=== PATIENT | female | born 1950 | race Caucasian/White ===

== ENCOUNTER 2020-08-26 07:55 | Outpatient (CLI) | payer MEDICARE, SELFPAY ==
--- NOTE | ~2020-08-26 | MM_ITS ---
EXAMINATION: MM screening [facility] BI w chang HISTORY: Screening mammogram TECHNIQUE: Craniocaudal and mediolateral oblique 3-D tomosynthesis images were obtained and synthetic 2-D images were generated. CAD analysis was submitted and interpreted. COMPARISON: 02/08/2019, 02/06/2018, 12/05/2016 BREAST PARENCHYMAL COMPOSITION: There are scattered areas of fibroglandular density. FINDINGS: RIGHT BREAST: An asymmetry is present in the middle third of the outer breast 8 cm from the nipple on the craniocaudal view. LEFT BREAST: There is no evidence of suspicious mass, calcification, or architectural distortion to s uggest malignancy. There has been no significant interval change. IMPRESSION: 1. Right breast asymmetry on the craniocaudal view. 2. Additional mammographic views and possible breast ultrasound are recommended. BI-RADS Category 0: Incomplete: Needs additional imaging evaluation. Reviewed, dictated and finalized at location A. IMPRESSION: 1. Right breast asymmetry on the craniocaudal view. 2. Additional mammographic views and possible breast ultrasound are recommended . BI-RADS Category 0: Incomplete: Needs additional imaging evaluation.
--- NOTE | ~2020-08-26 | DEXA_ITS ---
Bone Density Report Name: Annette Mckeon Age: 69 Sex: Female Ethnicity: White Date of : 1950 Indication: postmenopausal; height loss; prior fracture; hysterectomy; Referring Provider: CAROL, ELLYN Pedraza Study: Bone densitometry was performed. Exam Date: August 26, 2020 Accession number: [id number] Bone Density: Region BMD T-score Z-score Classification AP Spine (L1-L4) 0.906 -1.3 0.8 Osteopenia Femoral Neck (Left) 0.722 -1.1 0.6 Osteopenia Total Hip (Left) 0.838 -0.9 0.6 Normal Total Hip Bilateral Avg 0.832 -0.9 0.6 Normal Femoral Neck (Right) 0.690 -1.4 0.3 Osteopenia Total Hip (Right) 0.825 -1.0 0.5 Normal World Health Organization criteria for BMD impression classify patients as: Normal (T-score at or above -1.0), Osteopenia (T-score between -1.0 and -2.5), or Osteoporosis (T-score at or below -2.5). 10-year Fracture Risk(1): Major Osteoporotic Fracture 16% Hip Fracture 2.0% Reported Risk Factors: [place] (), Neck BMD=0.690, BMI=25.4, previous fracture (1) FRAX(R) Version 3.08. Fracture probability calculated for an untreated patient. Fracture probability may be lower if the patient has received treatment. Previous Exams: Region Exam Age BMD T-score BMD Change BMD Change Date g/cm2 vs Baseline vs Previous AP Spine(L1-L4) 08/26/2020 69 0.906 -1.3 -0.016(-1.7%)# -0.090(-9.0%)# 11/18/2011 60 0.996 -0.5 0.074(8.0%)# 0.123(14.1%)# 01/19/2009 58 0.873 -1.6 -0.049(-5.3%)* -0.086(-8.9%)* 12/03/2005 54 0.959 -0.8 0.037(4.0%)* 0.037(4.0%)* 10/11/2003 52 0.922 -1.1 Total Hip(Left) 08/26/2020 69 0.838 -0.9 -0.101(-10.8%) -0.090(-9.7%)* 05/13/2016 65 0.928 -0.1 -0.011(-1.2%)# -0.038(-3.9%)# 11/18/2011 60 0.966 0.2 0.027(2.8%)# 0.044(4.7%)# 01/19/2009 58 0.922 -0.2 -0.017(-1.8%) -0.035(-3.7%)* 12/03/2005 54 0.957 0.1 0.018(1.9%) 0.018(1.9%) 10/11/2003 52 0.939 0.0 Total Hip(Right) 08/26/2020 69 0.825 -1.0 -0.076(-8.4%)# -0.099(-10.7%) 05/13/2016 65 0.924 -0.1 0.023(2.6%)# -0.043(-4.5%)# 11/18/2011 60 0.967 0.2 0.067(7.4%)# 0.092(10.5%)# 01/19/2009 58 0.876 -0.5 -0.025(-2.8%) -0.029(-3.2%)* 12/03/2005 54 0.904 -0.3 0.003(0.4%) 0.003(0.4%) 10/11/2003 52 0.901 -0.3 *Denotes significance at 95% confidence level, LSC for AP Spine = 0.022 g/cm2, LSC for Total Hip = 0.027 g/cm2 Clinical Information Provided by Patient: Has had a low trauma fract
== END 2020-08-26 07:56 | disposition home or self-care (01) ==
LOC: ANHIMG 08:06
PROVIDERS: PCP Internal Medicine; Visit Provider Internal Medicine
DX: Z12.31 Encounter for screening mammogram for malignant neoplasm of breast (principal); M81.0 Age-related osteoporosis without current pathological fracture; R92.8 Other abnormal and inconclusive findings on diagnostic imaging of breast
CPT/HCPCS: 77063; 77067; 77080

== ENCOUNTER 2020-09-01 14:18 | Outpatient (CLI) | payer MEDICARE, SELFPAY ==
--- NOTE | ~2020-09-01 | MM_ITS ---
EXAMINATION: MM diagnostic mammo unilat RT HISTORY: Focal right breast asymmetry on screening CC view of 08/26/2020 mammogram TECHNIQUE: Additional 3-D tomosynthesis images of the right breast were performed and synthetic 2-D i mages were generated. CAD analysis was submitted and interpreted. COMPARISON: , 02/24/2019bilateral digital screening mammogram examinations FINDINGS: The focal area of asymmetry is no longer present on coned compression CC view of the area. There is no significant abnormality on ML view either. IMPRESSION: 1. No mammographic evidence of malignancy 2. Routine mammographic screening is recommended BI-RADS Category 1: Negative Reviewed, dictated and finalized at location A.
== END 2020-09-01 14:19 | disposition home or self-care (01) ==
PROVIDERS: PCP Internal Medicine; Visit Provider Internal Medicine
DX: R92.8 Other abnormal and inconclusive findings on diagnostic imaging of breast (principal)
CPT/HCPCS: 77065

== ENCOUNTER 2020-11-23 02:27 | Day surgery (SDC) | payer MEDICARE, SELFPAY ==
[2020-11-06 13:11] VITALS: BMI 24.9
[2020-11-23 08:57] VITALS: BP 150/52; PULSE 75; RESP 18; TEMP 36.3; O2SAT 100
[2020-11-23] MEDS: LACTATED RINGERS 1,000 ML 150 ML IV CONT (09:06)
--- NOTE | 2020-11-23 09:33 | WPDANESEPPF ---
Anes - Initial Pre Proc Eval Procedure: Operation Date: 11/23/20 09:30 Proposed Procedures p Colonoscopy - Pedro Cunningham MD Date/Time: 11/23/20 09:33 Surgeon: Pedro Cunningham MD Pre Op Diagnosis: Diverticulitis Patient Data Age: 69 Gender: F Height: 1.63 m Weight: 65 kg Last Vital Signs Temp 97.4 F L 11/23/20 08:57 Pulse 75 11/23/20 08:57 Resp 18 11/23/20 08:57 BP 150/52 H 11/23/20 08:57 Pulse Ox 100 11/23/20 08:57 Allergies Allergy/AdvReac Type Severity Reaction Status Date / Time adhesive Allergy Unknown RASH Unverified 08/10/17 10:31 doxycycline Allergy Unknown Cramping Verified 11/23/20 09:05 of the Muscles Home Medications Medication Instructions Recorded Confirmed Type pravastatin 40 mg tablet 40 mg PO DAILY 11/03/20 11/06/20 History Patient hx anesthesia problems: none Family hx anesthesia problems: none [facility] Past Medical History Medical History (Updated 11/23/20 @ 09:38 by Pedro Cunningham MD) Hyperlipidemia Family History Family History Mother Family history of chronic obstructive pulmonary disease Family history of malignant neoplasm of urinary bladder Patient's mother is Social History Social History Smoking status: Never smoker Alcohol intake: former Substance use: never Substance use type: does not use Living arrangements: with family Gender identity (if verbalized by the patient): Female Spiritual care concerns: No Anes - Eval Final PreProcedure Day of Procedure 11/23/20 09:33 Patient weight: normal Heart: regular rate and rhythm Lungs: clear to auscultation Airway: Mallampati scale class II Neurological: alert and oriented Last oral intake: >/= 8 hours ASA classification: II Emergent: no Anesthetic plan: proceed Anesthesia type and monitoring: general GIVS and standard monitoring Informed Consent: The patient's anesthetic plan and its attendant risks and benefits were discussed with the patient/family/POA. Questions were solicited and answers provided to the satisfaction of the patient/family/POA.
--- NOTE | 2020-11-23 09:36 | PM.HPGS ---
History of Present Illness History of Present Illness Consent: Risks, benefits, and alternatives have been discussed and questions answered. Patient agrees to proceed with procedure. Chief complaint: Diverticulitis Narrative: Annette Mckeon is a 69 year old female with recent symptoms suggestive of diverticulitis. She was also having urinary tract symptoms, passing small particles and also what seemed to be air with her urine. A CT scan of the abdomen showed a possible sigmoid colon mass, but not any free air suggesting severe diverticulitis. Nor was there a fistula seen. She took an antibiotic, nitrofurantoin for a week and the pain she had originally had in the pelvis subsided. Review of Systems Review of Systems: All systems reviewed & are unremarkable except as noted in HPI and below PMFSH Past Medical History Medical History Hyperlipidemia Family History Family History Mother Family history of chronic obstructive pulmonary disease Family history of malignant neoplasm of urinary bladder Patient's mother is Social History Social History Smoking status: Never smoker Alcohol intake: former Substance use: never Substance use type: does not use Living arrangements: with family Gender identity (if verbalized by the patient): Female Spiritual care concerns: No Meds Home Medications and Allergies Home Medications Medication Instructions Recorded Confirmed Type pravastatin 40 mg tablet 40 mg PO DAILY 11/03/20 11/06/20 History Allergies Allergy/AdvReac Type Severity Reaction Status Date / Time adhesive Allergy Unknown RASH Unverified 08/10/17 10:31 doxycycline Allergy Unknown Cramping Verified 11/23/20 09:05 of the Muscles Vital Signs Vital Signs - 24 hr 11/23/20 08:57 Temperature 36.3 C L Pulse Rate 75 Respiratory Rate 18 Blood Pressure 150/52 H Pulse Oximetry 100 Exam Resp: Auscultation: clear to auscultation bilaterally Cardio: Rate: regular rate Rhythm: regular rhythm GI: GI Palp: Yes Soft to palpation and No Tenderness to palpation present (GI) Assessment and Plan Assessment and plan (1) Abnormal CT scan, gastrointestinal tract: Code(s): R93.3 - Abnormal findings on diagnostic imaging of other parts of digestive tract Status: Acute Assessment and Plan: Colonoscopy with possible biopsy or polypectomy or cautery or injection of substances.
[2020-11-23 10:10] VITALS: BP 96/40; PULSE 78; RESP 22; O2SAT 100
[2020-11-23 10:20] VITALS: BP 109/62; PULSE 74; RESP 23; O2SAT 100
[2020-11-23 10:30] VITALS: BP 150/75; PULSE 71; RESP 19; O2SAT 100
== END 2020-11-23 10:43 | disposition home or self-care (01) ==
PROVIDERS: PCP Internal Medicine; Visit Provider Internal Medicine Gastroenterology
PROC: 0DJD8ZZ Inspection of Lower Intestinal Tract, Via Natural or Artificial Opening Endoscopic (ICD-10-PCS; CPT 45378; principal; 2020-11-23 09:30)
DX: R93.3 Abnormal findings on diagnostic imaging of other parts of digestive tract (principal); K57.30 Diverticulosis of large intestine without perforation or abscess without bleeding; E78.5 Hyperlipidemia, unspecified
CPT/HCPCS: 45378; J2704; J7120

== ENCOUNTER 2021-10-18 08:30 | Outpatient (RCR) | payer MEDICARE, SELFPAY ==
--- NOTE | 2021-09-20 12:22 | PTOPEVAL ---
PHYSICAL THERAPY EVALUATION AND PLAN OF CARE Thank you for referring Annette Mckeon to [facility].? The patient is scheduled to be seen for therapy? 2x/week for 4 weeks. Please review, sign, date and return this plan of care KRYSTLE. I agree with and certify that the following plan of care is medically necessary. Referring Physician Date Attending Provider: Bunny Aguirre, MD Diagnosis left lumbar radiculopathy Onset 06/29 Subjective Information Annette is here today with c/o Query Text:As Reported By Patient/ left sided sciatica . She Family points to the left glutes and leg. Started about June with shoveling snow and then about a month ago she started to do yard work and it hit hard. MRI does not herniated disc at L4-5 impinging on L5 nerve root. She points to pain in the left leg that goes down to the ankle and lateral ankle. She took a z-pack of steroids - she is not sure they made a difference. Lumbar ROM Lumbar Flexion Active Ankle Query Text:Hands to: Lumbar Comments stands in forward flexed position of at least 20deg; increased LE symptoms with neutral and extended positions Lower Extremity Muscle Strength Testing General Lower Extremity Strength Gross Lower Extremity Strength generally WFL; right MMT increases symptoms on the left and causes pain to the point of limited engaged muscles Posture Posture Standing Position Thoracic Spine Posture Increased Kyphosis Lumbar Spine Posture Flexed Pelvis Posture Posterior Tilted Leg Length Discrepancy left LE short compared to right indicating potential for left posterior innominate which is also supported with the fact the a crossed straight leg raise test is positive but a straight leg raise test on left is negative Additional Posture Comments in sitting: attempted to perform anterior to posterior pelvic tilts which is very difficult to perform with hypomobility of lumbar spine
--- NOTE | 2021-10-18 09:08 | PTOPEVAL ---
PHYSICAL THERAPY DISCHARGE NOTE Thank you for referring Annette Mckeon to [facility].? Please review, sign, date and return this plan of care KRYSTLE. I agree with and certify that the following plan of care is medically necessary. Referring Physician Date Attending Provider: Bunny Aguirre, MD Diagnosis left lumbar radiculopathy Onset 06/29 Subjective Information States that she feels like Query Text:As Reported By Patient/ there has been some help from Family physical therapy in sense of learning how to improve her posture and gait pattern. She does feel like her pain symptoms are somewhat better. Notes that she will often feel better for at least a day after therapy sessions. She will get tired and pain will return but she is encouraged. Still sleeps in recliner. States that she does her HEP and she feels like they are helpful. Her primary care doctor is sending her to a neurosurgeon. Lumbar ROM Lumbar Flexion Active Ankle Query Text:Hands to: Lumbar Comments stands in forward flexed position of at least 20deg; increased LE symptoms with neutral and extended positions Lower Extremity Muscle Strength Testing General Lower Extremity Strength Gross Lower Extremity Strength generally WFL; all MMT is aggravating to the symptoms but generally less sensitive compared to initial visit Special Test-Spine Lumbar Spine Special Tests Crossed Straight Leg Raise Test Negative Left,Positive Right Straight Leg Raise Test Negative Right,Negative Left Gait Pattern Antalgic Gait Other Gait Observations ambulates with a straight cane and states that it helps to decrease pressure on the left side of her body; right side bend of lumbar spine; performs step through gait with cane PT Clinical Summary Annette is a 70 yo female presenting to outpatient physical therapy with subacute left LE radiculopathy. She is diagnosed via MRI with spinal
== END 2021-10-18 14:08 | disposition home or self-care (01) ==
LOC: ANHPT 08:30
PROVIDERS: PCP Internal Medicine; Visit Provider Internal Medicine
DX: M54.16 Radiculopathy, lumbar region (principal)
CPT/HCPCS: 97014; 97110; 97112; 97140; 97162; G0283

== ENCOUNTER 2021-12-24 09:28 | Outpatient (CLI) | payer MEDICARE, SELFPAY ==
--- NOTE | ~2021-12-24 | MM_ITS ---
EXAMINATION: MM screening [facility] BI w chang HISTORY: Screening mammogram TECHNIQUE: Craniocaudal and mediolateral oblique 3-D tomosynthesis images were obtained and synthetic 2-D images were generated. CAD analysis was submitted and interpreted. COMPARISON: 09/01/20 diagnostic right mammogram /, 02/2019 bilateral screening mammogram examinations BREAST PARENCHYMAL COMPOSITION: There are scattered areas of fibroglandular density. FINDINGS: There is no evidence of suspicious mass, calcification, or architectural distortion to sugg est malignancy in either breast. There has been no suspicious interval change. IMPRESSION: 1. No mammographic evidence of malignancy. 2. Recommend routine screening mammography in one year. BI-RADS Category 1: Negative Reviewed, dictated and finalized at location A.
== END 2021-12-24 09:29 | disposition home or self-care (01) ==
LOC: ANHIMG 09:32
PROVIDERS: PCP Internal Medicine; Visit Provider Internal Medicine
DX: Z12.31 Encounter for screening mammogram for malignant neoplasm of breast (principal)
CPT/HCPCS: 77063; 77067

== ENCOUNTER 2022-04-10 21:06 | Inpatient (IN) | payer MEDICARE, SELFPAY ==
--- NOTE | ~2022-04-10 | XR_ITS ---
EXAMINATION: XR abdomen/kub 1V DATE: 04/12/2022 06:59 INDICATION: Small bowel obstruction TECHNIQUE: A supine view of the abdomen on 2 radiographs was obtained. COMPARISON: 04/11/2022 FINDINGS: Is a gastric tube tip in proximal side port in the body of the stomach. No significant change in mult iple dilated gas-filled loops of small bowel throughout the abdomen and pelvis consistent with persis tent small bowel obstruction. On flexion and cholecystectomy clips in right upper quadrant. Lung base s are clear. Heart size is normal. IMPRESSION: 1. Persistent small bowel obstruction. Reviewed, dictated and finalized at location A. BACKER
--- NOTE | ~2022-04-10 | XR_ITS ---
XR abdomen NG/feed tube insert INDICATION: Evaluate position. TECHNIQUE: Limited KUB perform for evaluating NG tube . COMPARISON: FINDINGS: NG tube tip in the stomach. Visualized bowel gas pattern is unremarkable.There is a hiatal hernia. There are cholecystectomy clips. IMPRESSION: 1: NG tube tip in the stomach. Reviewed, dictated and finalized at location A. [employer] WORKERS
--- NOTE | ~2022-04-10 | XR_ITS ---
SMALL BOWEL SERIES ONLY INDICATION: Small bowel obstruction. Prior sigmoidectomy. TECHNIQUE: Serial plain films and fluoroscopic spot films are performed following NG tube administrat ion of water-soluble contrast. COMPARISON: 04/12/2022 FINDINGS: Contrast is followed through the small bowel to 1 hour. The bowel is diffusely dilated with out definite transition point. Findings discussed with Dr. Wick. The study was ended per Dr. Wick. IMPRESSION: 1: Dilated small bowel, consistent with obstruction. Reviewed, dictated and finalized at location A. T CENTER DIRECTOR
--- NOTE | ~2022-04-10 | XR_ITS ---
EXAMINATION: XR abdomen NG/feed tube insert DATE: 04/11/2022 10:14 INDICATION: Nasogastric tube placement TECHNIQUE: A supine view of the abdomen and lower chest was obtained for evaluation of feeding tube placement. COMPARISON: 04/11/2022 at 12:54 AM FINDINGS: Nasogastric tube tip in proximal side port in the body the stomach. Cholecystectomy clips in right up per quadrant. Multiple mildly dilated loops of gas-filled small bowel consistent with small bowel obs truction. Lung bases are clear. Heart size is normal. IMPRESSION: 1. Nasogastric tube in stomach. 2. Small bowel obstruction. Reviewed, dictated and finalized at location A. PER OPERATOR
--- NOTE | ~2022-04-10 | XR_ITS ---
XR chest PICC line DATE: 04/14/2022 10:04 INDICATION: PICC line verification TECHNIQUE: Portable AP view on 04/14/2022 at 0951 hours COMPARISON: None FINDINGS: Right upper extremity PIC catheter tip overlies the superior vena cava. NG tube in the stomach. Mild elevation of left diaphragm. Heart size is likely within normal range. Mild pulmonary vascular and interstitial prominence is mild congestive change. No pulmonary consolidation or pneumothorax. Aortic calcification and unfolding. Osteopenia. IMPRESSION: Right upper extremity PIC catheter in superior vena cava NG tube in stomach Reviewed, dictated and finalized at Location A. Reviewed, dictated and finalized at location B. LIFE ECOLOGY PROFESSOR
--- NOTE | ~2022-04-10 | CT_ITS ---
EXAMINATION: CT abdomen pelvis w con DATE: 04/10/2022 22:38 INDICATION: Abdominal pain, nausea and vomiting. History of bowel resection. TECHNIQUE: Computed tomography (CT) of the abdomen and pelvis was performed with 100 CC Omnipaque 350 intravenous contrast. Automated exposure control and iterative reconstruction technique were employe d. Exam dose: 546.00 mGy-cm total exam DLP. COMPARISON: None. FINDINGS: The lung bases are clear. Surgical change is noted in the esophagogastric area, likely rela patricio to fundoplication. There is dilatation and there are air-fluid levels of most of the small bowel, measuring up to 3.6 cm diameter, with transition points noted slightly left of midline in the lower abdomen (series 3 image 89) and left lower quadrant/pelvic area (image 118). There is edema of the mesentery, particularly o n the left and mild free fluid in the abdomen. The very distal small bowel is decompressed. Findings are consistent with closed loop small bowel obstruction. There is a suture line at the distal sigmoid colon. Heart size is within normal range. No pericardial or pleural effusion. Hepatic steatosis. No hepatic space-occupying mass lesion is evident. Status post cholecystectomy. No bile duct or pancreatic duct dilatation. No pancreatic mass lesion or calcification is evident. Norm al splenic size. Normal morphology of the adrenal glands. No renal mass lesion or urinary tract calculus or hydroureteronephrosis is evident. The urinary bladd er is unremarkable. The uterus is surgically absent. There is atherosclerotic calcification but normal caliber of the abdominal aorta. No intraperitoneal or retroperitoneal or pelvic mass lesion or adenopathy or ascites. Bilateral fat-containing inguinal hernias. No suspicious osteolytic or osteoblastic lesions are noted. Moderately prominent multilevel degenerative disease of the lumbar spine. Degenerative spurring of th e lower thoracic spine. Bilateral hip osteoarthritis. No suspicious osteolytic or osteoblastic lesion s are noted. IMPRESSION: Closed loop small bowel obstruction, with mild free fluid in the abdomen, mesenteric mariangel ma. Emergency surgical consultation is recommended . Reviewed, dictated and finalized at Location A. Reviewed, dictated and finalized at location B. OYMENT TECHNICIAN IMPRESSION: Closed loop small bowel obstruction, with mild free fluid in the a bdomen, mesenteric edema. Emergency surgical consultation is recommended .
[2022-04-10 21:07] VITALS: BP 178/79; PULSE 85; RESP 18; TEMP 36.4; O2SAT 100
[2022-04-10 21:20] VITALS: BP 167/84; PULSE 75; RESP 15; O2SAT 100
[2022-04-10 21:32] VITALS: BP 171/53; PULSE 75; RESP 12; O2SAT 100
[2022-04-10 21:50] LABS: Basophils Percent Auto 0.2 % (0.2-1.2); Eosinophils Percent Auto 0.1 % (0-4.4); Hematocrit 41.1 % (37.0-47.0); Immature Granulocyte Absolute 0.05 K/mm3 (0.00-0.031); Immature Granulocyte Percent A 0.4 % (0-0.5); Lymphocytes Absolute Auto 0.99 K/mm3 (0.9-3.2); Lymphocytes Percent Auto 7.2 % (18.3-44.2); Mean Corpuscular HGB Conc 34.1 g/dl (32-36); Mean Corpuscular Hemoglobin 30.3 pg (26-34); Mean Platelet Volume 10.2 fl (7.4-10.4); Monocytes Absolute Auto 0.3 K/mm3 (0.1-0.6); Monocytes Percent Auto 2.3 % (2.6-8.5); Neutrophils Absolute Auto 12.3 K/mm3 (1.3-6.7); Neutrophils Percent Auto 89.8 % (45.5-73.1); Platelet Count Result 200 k/mm3 (150-375); Red Blood Count 4.62 M/mm3 (4.2-5.4); Red Cell Distribution Width 12.9 % (11.5-14.5); White Blood Count 13.7 K/mm3 (4.5-10.0)
[2022-04-10] MEDS: SODIUM CHLORIDE 0.9% IV 1,000 ML 999 ML IV CONT (21:51)
[2022-04-10] MEDS: HYDROmorphone HCL INJ (*CRX) 1 MG/ML SYR IV PUSH (21:51)
--- NOTE | 2022-04-10 21:51 | ED.GENADULT ---
HPI - General Adult General Chief complaint: Abdominal Pain Stated complaint: abdominal pain Time Seen by Provider: 04/10/22 21:26 History of Present Illness HPI narrative: Patient is 71-year-old female who presents the emergency department with chief complaint of abdominal pain. Patient reports that she has prior history of bowel resection secondary to deal with a hernia in the upper abdomen patient reports that this afternoon she started having pain in the epigastric region and throughout her abdomen and reports that she has had nausea and vomiting. The patient reports symptoms have not been improved by anything and reports that there worsens whenever she tries to eat or drink anything. Patient denies fever denies recent surgery. Related Data Home Medications Medication Instructions Recorded Confirmed atorvastatin 10 mg tablet mg 04/10/22 losartan 100 mg tablet mg 04/10/22 Allergies Allergy/AdvReac Type Severity Reaction Status Date / Time adhesive Allergy Unknown RASH Verified 04/10/22 21:11 doxycycline Allergy Unknown Cramping Verified 04/10/22 21:11 of the Muscles Review of Systems Review of Systems: A 10 system review of systems was completed on the patient and is negative except for what is stated in the HPI. Nursing and ancillary documentation was reviewed. [facility] Past Medical History Medical History Hyperlipidemia Family History Family History Mother Family history of chronic obstructive pulmonary disease Family history of malignant neoplasm of urinary bladder Patient's mother is Social History Social History Smoking status: Never smoker Alcohol intake: former Substance use: never Substance use type: does not use Gender identity (if verbalized by the patient): Female Spiritual care concerns: No Exam Narrative: GENERAL: Well-appearing, well-nourished, and in no acute distress. HEAD: Normocephalic, atraumatic. EYES: PERRLA and EOMI. ENT: Nares clear, no rhinorrhea or epistaxis. Mucous membranes moist. NECK: Supple. CHEST: Clear to auscultation. No respiratory distress. HEART: Regular rate and rhythm. No murmur heard. Normal peripheral pulses. ABDOMEN: Soft, tenderness to palpation in the epigastric region, nondistended, normal active bowel sounds. EXTREMITIES: Normal range of motion. No edema. SKIN: Warm, dry, no rash. NEURO: No focal deficits. Alert and oriented x3. PSYCH: Normal mood and affect. Course Vital Signs Vital signs: Vital Signs Temperature 36.4 C L 04/10/22 21:07 Pulse Rate 85 04/10/22 21:07 Respiratory Rate 18 04/10/22 21:07 Blood Pressure 178/79 H 04/10/22 21:07 Pulse Oximetry 100 04/10/22 21:07 Oxygen Delivery Room Air 04/10/22 21:07 Temperature 36.4 C L 04/10/22 21:07 Pulse Rate 75 04/10/22 21:32 Respiratory Rate 12 04/10/22 21:32 Blood Pressure 171/53 H 04/10/22 21:32 Pulse Oximetry 100 04/10/22 21:32 Oxygen Delivery Room Air 04/10/22 21:07 Medical Decision Making Vital Signs Vital Signs: Vital Signs Temperature 36.4 C L 04/10/22 21:07 Pulse Rate 85 04/10/22 21:07 Respiratory Rate 18 04/10/22 21:07 Blood Pressure 178/79 H 04/10/22 21:07 Pulse Oximetry 100 04/10/22 21:07 Oxygen Delivery Room Air 04/10/22 21:07 Temperature 36.4 C L 04/10/22 21:07 Pulse Rate 75 04/10/22 21:32 Respiratory Rate 12 04/10/22 21:32 Blood Pressure 171/53 H 04/10/22 21:32 Pulse Oximetry 100 04/10/22 21:32 Oxygen Delivery Room Air 04/10/22 21:07 Lab Data 04/10/22 21:45 04/10/22 21:45 Labs: Lab Results 04/10/22 04/10/22 04/10/22 Range/Units 21:45 21:45 21:45 WBC 13.7 H (4.5-10.0) K/mm3 RBC 4.62 (4.2-5.4) M/mm3 Hgb 14.0
[2022-04-10] MEDS: ONDANSETRON INJ 4 MG/2 ML VIAL IV PUSH (21:52)
[2022-04-10 22:03] LABS: Alanine Aminotransferase 17 U/L (6-35); Albumin Level 4.6 g/dL (3.5-5.1); Alkaline Phosphatase 89 U/L (38-126); Anion Gap 10 mmol/L (8-16); Aspartate Amino Transferase 28 U/L (14-36); Bilirubin,Total 1.2 mg/dL (0.2-1.3); Blood Urea Nitrogen 22 mg/dL (7-17); Calcium 9.3 mg/dL (8.4-10.2); Carbon Dioxide 24 mmol/L (22-30); Chloride 102 mmol/L (98-107); Estimated CRCL calculation 55 ml/min; Estimated Glomerular Filt Rate > 60; Glucose 174 mg/dL (65-110); Lactic Acid Reflex 0.9 mmol/L (0.7-2.0); Lipase 95 U/L (23-300); Magnesium 1.9 mg/dL (1.6-2.3); Potassium 3.8 mmol/L (3.4-5.0); Sodium 136 mmol/L (137-145)
[2022-04-10 23:13] VITALS: BP 148/63; O2SAT 100
[2022-04-10 23:46] VITALS: BP 152/71; O2SAT 98
[2022-04-11] MEDS: HYDROmorphone HCL INJ (*CRX) 1 MG/ML SYR IV PUSH ×4 (00:04→21:56)
[2022-04-11 00:28] LABS: Appearance Urine Clear (Clear); Bilirubin Urine Negative (Negative); Blood Urine Trace-intact (Negative); Color Urine Yellow (Yellow); Glucose Urine UA Negative (Negative); Ketones Urine 2+ mg/dL (Negative); Leukocyte Esterase Ur Negative LEU/UL (Negative); Nitrate Urine Negative (Negative); Protein Urine Negative (Negative); Urobilinogen Urine 0.2 mg/dL (<2.0)
--- NOTE | 2022-04-11 00:29 | PM.IMHP ---
H&P: HPI History of Present Illness Date/Time: 04/11/22 00:29 Chief Complaint: abdominal pain Narrative: This is a 71-year-old female with past medical history significant for hypertension, dyslipidemia, hiatal hernia. Patient presents to the emergency room due to abdominal pain diffusely localized area started earlier in the day patient was able to had a bowel movement her usual in the morning has been passing gas denies any changes in stool character weight loss denies hematemesis, bright red blood per rectum, melena, no weight loss. patient had nausea but no vomiting, pain got worse over the course of the day there were no alleviating factors or relieving factors apparently worse with food intake. A CT of abdomen and pelvis was reported as small-bowel obstruction Review of Systems Review of Systems: abdominal pain Constitutional: Constitutional: Denies chills, Denies fever(s), Denies malaise, Denies night sweats and Denies weight loss Eyes: Eyes: Denies change in vision ENT: Denies dysphagia, Denies vertigo, Denies dizziness and Denies odynophagia Cardiovascular: Cardiovascular: Denies chest pain, Denies irregular heart rhythm and Denies leg edema Respiratory: Respiratory: Denies chest congestion, Denies pain on inspiration, Denies dyspnea and Denies wheezing Gastrointestinal: Gastrointestinal: Reports abdominal pain, Denies melena, Denies hematochezia, Denies dyspepsia, Denies heartburn, Denies diarrhea, Reports nausea and Denies vomiting Genitourinary: Genitourinary: Reports no additional female genitourinary complaints, Reports as per HPI and Denies dysuria Musculoskeletal: Musculoskeletal: Denies back pain, Denies myalgias, Denies joint swelling, Denies muscle weakness and Denies neck pain Integumentary/Breasts: Skin/Breast: Denies rash Neurologic: Denies vertigo, Denies dizziness, Denies focal weakness and Denies Sensory deficit (Neuro) Psychiatric: Psychiatric: Reports no additional psychiatric complaints and Reports as per HPI Endocrine: Endocrine: Reports no additional endocrine complaints, Reports as per HPI, Denies flushing, Denies heat intolerance, Denies polyphagia, Denies polydipsia and Denies palpitations Hematologic/Lymphatic: Hematologic/Lymphatic: Reports no additional hematologic/lymphatic complaints and Reports as per HPI Allergic/Immunologic: Allergic/Immunologic: Reports no additional allergic/immunologic complaints and Reports as per HPI PMFSH Past Medical History Medical History Hyperlipidemia Family History Family History Mother Family history of chronic obstructive pulmonary disease Family history of malignant neoplasm of urinary bladder Patient's mother is Social History Social History Smoking status: Never smoker Alcohol intake: never Substance use: never Substance use type: does not use Lack of Transportation: No Lack of Food: Never True Current Housing: I Have Housing Concerned About Future Housing: No Difficulty Paying Gas/Electric Bills: No Difficulty Paying for Meds: No Currently Unemployed: No Education: Bachelor's Degree Difficulty w/ Childcare or Family Care: No Gender identity (if verbalized by the patient): Female Spiritual care concerns: No Meds Home Medications and Allergies Home Medications Medication Instructions Recorded Confirmed Type atorvastatin 10 mg tablet 10 mg PO HS 04/10/22 04/11/22 History losartan 100 mg tablet 100 mg PO DAILY 04/10/22 04/11/22 History cholecalciferol (vitamin D3) 125 125 mcg PO DAILY 04/11/22 04/11/22 History mcg (5,000 unit) capsule (Dialyvite Vitamin D) vit C 250 mg-vit E 90 mg-zinc 40 1 tablet PO DAILY 04/11/22 04/11/22 History mg-copper 1 [id number] capsule (PreserVision ARE
[2022-04-11 00:32] LABS: Mucus Urine Rare /lpf; Squamous Epithelial Cell Urine Few /hpf (Few)
[2022-04-11 00:38] LABS: Add Urine Microscopic? YES
[2022-04-11 01:02] VITALS: BP 161/74; PULSE 79; RESP 20; O2SAT 99
[2022-04-11] MEDS: SODIUM CHLORIDE 0.9% IV 1,000 ML 125 ML IV CONT ×3 (01:06→16:31)
[2022-04-11 01:43] VITALS: BP 152/68; PULSE 78; RESP 20; TEMP 36.2; O2SAT 98; BMI 24.4
[2022-04-11] MEDS: HEPARIN SODIUM 5,000 UNITS/ML VIAL 5000 UNITS SUB-Q ×3 (05:51→21:53)
[2022-04-11 06:00] VITALS: BP 169/69; PULSE 86; RESP 18; TEMP 37.2; O2SAT 100
[2022-04-11 08:03] LABS: Hematocrit 40.7 % (37.0-47.0); Hemoglobin 13.5 g/dL (12.0-15.0); Mean Corpuscular HGB Conc 33.2 g/dl (32-36); Mean Corpuscular Hemoglobin 29.9 pg (26-34); Mean Platelet Volume 10.3 fl (7.4-10.4); Platelet Count Result 192 k/mm3 (150-375); Red Blood Count 4.52 M/mm3 (4.2-5.4); Red Cell Distribution Width 12.9 % (11.5-14.5); White Blood Count 10.9 K/mm3 (4.5-10.0)
[2022-04-11 08:50] LABS: Anion Gap 4 mmol/L (8-16); Blood Urea Nitrogen 16 mg/dL (7-17); Calcium 8.4 mg/dL (8.4-10.2); Carbon Dioxide 27 mmol/L (22-30); Chloride 101 mmol/L (98-107); Estimated CRCL calculation 74 ml/min; Estimated Glomerular Filt Rate > 60; Glucose 131 mg/dL (65-110); Potassium 4.7 mmol/L (3.4-5.0); Sodium 132 mmol/L (137-145)
[2022-04-11] MEDS: ONDANSETRON INJ 4 MG/2 ML VIAL IV PUSH (10:12)
--- NOTE | 2022-04-11 12:56 | PM.IMPN ---
Progress Note: A&P Assessment and Plan (1) Small bowel obstruction: Code(s): K56.609 - Unspecified intestinal obstruction, unspecified as to partial versus complete obstruction Status: Acute Assessment and Plan: CT abd pelvis shows SBO. General surgery consulted and appreciate recommendations. NG to low intermittent suction Bowel rest, IV fluids and supportive care (2) Generalized abdominal pain: Code(s): R10.84 - Generalized abdominal pain Status: Acute Assessment and Plan: likely secondary to 1. Pain management (3) Nausea and vomiting: Qualifiers: Vomiting type: bilious vomiting Qualified Code(s): R11.14 - Bilious vomiting Code(s): R11.2 - Nausea with vomiting, unspecified Status: Acute Assessment and Plan: likely secondary to 1. Supportive care (4) Hypertension: Code(s): I10 - Essential (primary) hypertension Status: Chronic Assessment and Plan: Chronic, stable. Hold losartan while NPO. PRN hydralazine SBP>160 or DBP>100 Plan CODE STATUS: FULL CODE Disposition: Inpatient. Discharge disposition: home Time Spent With Patient Time with patient: 15 - 25 minutes Subjective Date/time seen: 04/11/22 12:56 she is having some abdominal pain that is diffuse but improved with IV pain medication. She denies passing flatus. No complaints of chest pain, shortness a breath, palpitations, nausea, diarrhea, or dysuria. NG tube is with small light green output. Review of Systems Review of Systems: All systems reviewed & are unremarkable except as noted in HPI and below Exam Narrative: General: No acute distress.? Well-developed older adult female. Mental Status/Psych: Awake, alert and oriented x4 with clear speech. Neutral mood and affect. Pleasant and cooperative. Skin: Skin fair, warm, dry and intact without rashes or lesions. No open wounds. Good turgor.? HEENT: Normocephalic. Sclera is non-icteric. EOM intact. PERRL. Grossly normal hearing. Oral mucosa pink and moist. Tongue midline. Oropharynx within normal limits. Neck: Supple. No JVD. Heart: S1 and S2 regular rate and rhythm. No murmurs, gallops, or rubs auscultated. Chest: Respirations even and unlabored. Lung sounds are clear to auscultation in all lobes bilaterally without wheezes, rhonchi, or rales. Abdomen: Soft, round and diffusely tender to palpation.? Bowel sounds hypoactive in all 4 quadrants. Extremities:? Grossly normal ROM all extremities. No edema, erythema or calf tenderness. Radial and dorsalis pedis pulses +2 bilaterally. Neurological: No focal deficits. Cranial nerves 2-12 grossly intact. Objective Data Vital Signs Vital Signs: Vital Signs - 24 hr 04/10/22 21:07 04/10/22 21:20 04/10/22 21:32 Temperature 97.5 F L Pulse Rate 85 75 75 Respiratory Rate 18 15 12 Blood Pressure 178/79 H 167/84 H 171/53 H Pulse Oximetry 100 100 100 Oxygen Delivery Room Air 04/10/22 23:13 04/10/22 23:46 04/11/22 01:02 Temperature Pulse Rate 79 Respiratory Rate 20 Blood Pressure 148/63 H 152/71 H 161/74 H Pulse Oximetry 100 98 99 Oxygen Delivery 04/11/22 01:43 04/11/22 06:00 Temperature 97.2 F L 98.9 F Pulse Rate 78 86 Respiratory Rate 20 18 Blood Pressure 152/68 H 169/69 H Pulse Oximetry 98 100 Oxygen Delivery Intake/Output Intake/Output: Intake & Output 04/08/22 04/09/22 04/10/22 04/11/22 23:59 23:59 23:59 23:59 Intake Total 1000 1000 Output Total 850 Balance 1000 150 Meds/Results Medications: Active Medications Generic Name Dose Route Start Last Admin Trade Name Freq PRN Reason Stop Dose Admin Heparin Sodium (Porcine) 5,000 units 04/11/22 06:00 04/11/22 05:51 Heparin Sodium 5,000 Units/Ml Vial SUB-Q 5,000 units Q8HR JULIETA Administration Hydralazine HCl 10 mg 04/11/22 09:38 Hydralazine Hcl 20 Mg/Ml Vial IV PUSH Q6HR PRN Blood Pressure - High Hydromorphone HCl
--- NOTE | 2022-04-11 13:04 | PM.CNGS ---
Assessment and Plan Assessment and plan (1) Small bowel obstruction: Code(s): K56.609 - Unspecified intestinal obstruction, unspecified as to partial versus complete obstruction Status: Acute Assessment and Plan: Larger nasogastric tube has been placed and is in good position. Will try bowel rest with NG suction analgesics and IV fluids. CT reports very as to a closed loop obstruction. Patient likely to have significant adhesions due to previous sigmoidectomy for colovesical fistula repair approximately 1 year ago. Will try conservative measures but if does not resolve, will need laparotomy and adhesiolysis. History of Present Illness Consult details Consult date: 04/11/22 Reason for consult: abdominal pain Requesting physician: Derik Khan MD Narrative: Patient is a 71-year-old woman who yesterday started having upper abdominal pain. Pain was persistent and associated with vomiting. She came to the emergency room. She was noted to have a diffusely tender abdomen and some distention. Her white blood cell count was elevated. CT scan of the abdomen and pelvis was read by the tele radiologist and suggested a closed-loop small-bowel obstruction. Patient had a nasogastric tube placed and with pain medication has felt better. I reviewed her CT scan independently and also discussed it thoroughly with Dr. Vern Hutton earlier this morning. The result of our discussion was that this was not a closed loop obstruction but was a small bowel obstruction and was not high-grade. Since my review, Dr. Tim read the CT scan and is suggesting this is a closed loop small bowel obstruction. Patient is seen now in consultation regarding her bowel obstruction. She had a paraesophageal hiatal hernia fixed 14 years ago at an outside hospital. This was done laparoscopically. It is known to have recurred. In February of 2021 she had repair of a colovesical fistula done at [place]. She is currently comfortable but does relate that she had some pain medication not long before I saw her. Review of Systems Review of Systems: All systems reviewed & are unremarkable except as noted in HPI and below (HPI and those items noted below) Constitutional: Constitutional: Denies chills and Denies fever(s) Cardiovascular: Cardiovascular: Denies chest pain, Denies diaphoresis, Denies dyspnea and Denies paroxysmal nocturnal dyspnea Respiratory: Respiratory: Denies chest congestion, Denies cough and Denies dyspnea Integumentary/Breasts: Skin/Breast: Denies lesions and Denies rash [facility] Past Medical History Medical History (Updated 04/11/22 @ 13:15 by Kameron Wick MD) Hyperlipidemia Surgical History Surgical History (Updated 04/11/22 @ 13:15 by Kameron Wick MD) Colovesical fistula Sigmoidectomy and bladder closure performed in [place] February 2021 Paraesophageal hiatal hernia Repair laparoscopically 14 or 15 years ago at outside hospital Family History Family History Mother Family history of chronic obstructive pulmonary disease Family history of malignant neoplasm of urinary bladder Patient's mother is Social History Social History Smoking status: Never smoker Alcohol intake: never Substance use: never Substance use type: does not use Lack of Transportation: No Lack of Food: Never True Current Housing: I Have Housing Concerned About Future Housing: No Difficulty Paying Gas/Electric Bills: No Difficulty Paying for Meds: No Currently Unemployed: No Education: Bachelor's Degree Difficulty w/ Childcare or Family Care: No Gender identity (if verbalized by the patient): Female Spiritual care concerns: No Meds Home Medications and Allergies Home Medications Medication Instructions Recorded Confirmed Type atorvastatin 10 mg tablet 10 mg PO HS
[2022-04-11 14:00] VITALS: BP 147/70; PULSE 78; RESP 16; TEMP 36.1; O2SAT 95
[2022-04-11 18:14] LABS: EDCOVIDSCREEN Negative (Negative)
[2022-04-11 21:57] VITALS: BP 148/56; PULSE 85; RESP 13; TEMP 37; O2SAT 100
[2022-04-12] MEDS: HYDROmorphone HCL INJ (*CRX) 1 MG/ML SYR IV PUSH (05:31)
[2022-04-12] MEDS: HEPARIN SODIUM 5,000 UNITS/ML VIAL 5000 UNITS SUB-Q (05:31)
[2022-04-12] MEDS: SODIUM CHLORIDE 0.9% IV 1,000 ML 125 ML IV CONT (05:32)
[2022-04-12 05:40] VITALS: BP 140/88; PULSE 84; RESP 13; TEMP 36.9; O2SAT 98
[2022-04-12 07:10] LABS: Anion Gap 5 mmol/L (8-16); Blood Urea Nitrogen 16 mg/dL (7-17); Carbon Dioxide 24 mmol/L (22-30); Chloride 104 mmol/L (98-107); Estimated CRCL calculation 63 ml/min; Estimated Glomerular Filt Rate > 60; Glucose 120 mg/dL (65-110); Magnesium 1.9 mg/dL (1.6-2.3); Potassium 4.3 mmol/L (3.4-5.0); Sodium 133 mmol/L (137-145)
--- NOTE | 2022-04-12 07:13 | PM.PNGS ---
Progress Note: A&P Assessment and Plan (1) Small bowel obstruction: Code(s): K56.609 - Unspecified intestinal obstruction, unspecified as to partial versus complete obstruction Status: Acute Assessment and Plan: pain persists. Still has small-bowel obstruction by imaging. Continue NG suction and bowel rest. Analgesics p.r.n.. IV fluids. Monitor electrolytes and exam as well as daily imaging. Subjective Subjective Date/Time Seen: 04/12/22 07:13 Patient reports: pain is less, flatus, no bowel movement and afebrile Review of Systems Review of Systems: All systems reviewed & are unremarkable except as noted in HPI and below ( HPI and those items noted below) Constitutional: Constitutional: Denies chills and Denies fever(s) Cardiovascular: Cardiovascular: Denies chest pain, Denies diaphoresis, Denies dyspnea and Denies paroxysmal nocturnal dyspnea Respiratory: Respiratory: Denies chest congestion, Denies cough and Denies dyspnea Integumentary/Breasts: Skin/Breast: Denies lesions and Denies rash Objective Data Vital Signs Vital Signs: Vital Signs - 24 hr 04/11/22 14:00 04/11/22 21:57 04/11/22 20:00 Temperature 36.1 C L 37.0 C Pulse Rate 78 85 Respiratory Rate 16 13 Blood Pressure 147/70 H 148/56 H Pulse Oximetry 95 100 Oxygen Delivery Room Air 04/12/22 05:40 Temperature 36.9 C Pulse Rate 84 Respiratory Rate 13 Blood Pressure 140/88 Pulse Oximetry 98 Oxygen Delivery Intake/Output Intake/Output: Intake & Output 04/09/22 04/10/22 04/11/22 04/12/22 23:59 23:59 23:59 23:59 Intake Total 1000 2000 1000 Output Total 1150 Balance 2930 309 2520 Meds/Results Medications: Active Medications Generic Name Dose Route Start Last Admin Trade Name Freq PRN Reason Stop Dose Admin Heparin Sodium (Porcine) 5,000 units 04/11/22 06:00 04/12/22 05:31 Heparin Sodium 5,000 Units/Ml Vial SUB-Q 5,000 units Q8HR JULIETA Administration Hydralazine HCl 10 mg 04/11/22 09:38 Hydralazine Hcl 20 Mg/Ml Vial IV PUSH Q6HR PRN Blood Pressure - High Hydromorphone HCl 1 mg 04/11/22 00:28 04/12/22 05:31 Hydromorphone Hcl Inj (*Crx) 1 Mg/Ml Syr IV PUSH 1 mg Q4H PRN Administration Pain Rated 7-10 Sodium Chloride 1,000 mls @ 125 mls/hr 04/11/22 00:30 04/12/22 05:32 Normal Saline Iv IV CONT 125 mls/hr .Q8H JULIETA Administration Ondansetron HCl 4 mg 04/11/22 00:28 04/11/22 10:12 Ondansetron Inj 4 Mg/2 Ml Vial IV PUSH 4 mg Q4H PRN Administration Nausea Radiology Results: ITS Impressions Abdomen/Pelvis CT 04/11/22 07:57 IMPRESSION: Closed loop small bowel obstruction, with mild free fluid in the abdomen, mesenteric edema. Emergency surgical consultation is recommended . Abdomen X-Ray 04/12/22 07:01 IMPRESSION: 1. Persistent small bowel obstruction. Labs Labs: Laboratory Results - last 24 hr 04/11/22 04/11/22 04/11/22 07:44 07:44 17:38 WBC 10.9 H RBC 4.52 Hgb 13.5 Hct 40.7 MCV 90.0 MCH 29.9 MCHC 33.2 RDW 12.9 Plt Count 192 MPV 10.3 Sodium 132 L Potassium 4.7 Chloride 101 Carbon Dioxide 27 Anion Gap 4 L BUN 16 Creatinine 0.50 L Estim Creat Clear Calc 74 Estimated GFR > 60 Glucose 131 H Calcium 8.4 Magnesium SARS-CoV-2 IgG/IgM Ag?Rapid Negative 04/12/22 06:19 WBC RBC Hgb Hct MCV MCH MCHC RDW Plt Count MPV Sodium 133 L Potassium 4.3 Chloride 104 Carbon Dioxide 24 Anion Gap 5 L BUN 16 Creatinine 0.60 L Estim Creat Clear Calc 63 Estimated GFR > 60 Glucose 120 H Calcium 8.0 L Magnesium 1.9 SARS-CoV-2 IgG/IgM Ag?Rapid Imaging Attestation: I personally reviewed and interpreted this imaging study as follows: ( flat plate abdomen) My impression: persistent dilation of the small intestine, possibly a little less distended. Consistent with small-bowel obstruction. Radiologis
--- NOTE | 2022-04-12 07:19 | PC.NURSE ---
Pt had limited amount of NG fluids suction throughout the night. Pt [place] flushed with NS 3 times with no increase of fluids suctioned. Pt has thick sediments present in [place] tubing. Intermittent low suctioning was maintained. HOB elevated was maintained throughout the night.
--- NOTE | 2022-04-12 08:48 | PM.IMPN ---
Progress Note: A&P Assessment and Plan (1) Small bowel obstruction: Code(s): K56.609 - Unspecified intestinal obstruction, unspecified as to partial versus complete obstruction Status: Acute Assessment and Plan: CT abd pelvis shows SBO. General surgery consulted and appreciate recommendations. NG to low intermittent suction Bowel rest, IV fluids and supportive care 04/12/22 KUB unchanged. (2) Generalized abdominal pain: Code(s): R10.84 - Generalized abdominal pain Status: Acute Assessment and Plan: likely secondary to 1. Pain management (3) Nausea and vomiting: Qualifiers: Vomiting type: bilious vomiting Qualified Code(s): R11.14 - Bilious vomiting Code(s): R11.2 - Nausea with vomiting, unspecified Status: Acute Assessment and Plan: likely secondary to 1. Supportive care (4) Hypertension: Code(s): I10 - Essential (primary) hypertension Status: Chronic Assessment and Plan: Chronic, stable. Hold losartan while NPO. PRN hydralazine SBP>160 or DBP>100 Plan CODE STATUS: FULL CODE Disposition: Inpatient. Discharge disposition: home Time Spent With Patient Time with patient: 15 - 25 minutes Subjective Date/time seen: 04/12/22 08:48 Interval history: No new complaints. She did hear a rumble in her abdomen last night. No flatus or BM. She states the abdominal pain is better today. Review of Systems Review of Systems: All systems reviewed & are unremarkable except as noted in HPI and below Exam Narrative: General: No acute distress.? Lying in bed. Mental Status/Psych: Awake, alert and oriented x4 with clear speech. Neutral mood and affect. Pleasant and cooperative. Skin: Skin fair, warm, dry and intact without rashes or lesions. No open wounds. Good turgor.? HEENT: Normocephalic. Sclera is non-icteric. Pupils equal and round. Oral mucosa moist. NG tube left nares patent. Neck: Supple. No JVD. Heart: S1 and S2 regular rate and rhythm. No murmurs, gallops, or rubs auscultated. Chest: Respirations even and unlabored. Lung sounds are clear to auscultation in all lobes bilaterally without wheezes, rhonchi, or rales. Abdomen: Soft, round and diffusely tender to palpation.? Bowel sounds hypoactive in all 4 quadrants. Extremities:? Grossly normal ROM all extremities. No edema, erythema or calf tenderness. Radial and dorsalis pedis pulses +2 bilaterally. Neurological: No focal deficits. Cranial nerves 2-12 grossly intact. Objective Data Vital Signs Vital Signs: Vital Signs - 24 hr 04/11/22 14:00 04/11/22 21:57 04/11/22 20:00 Temperature 96.9 F L 98.6 F Pulse Rate 78 85 Respiratory Rate 16 13 Blood Pressure 147/70 H 148/56 H Pulse Oximetry 95 100 Oxygen Delivery Room Air 04/12/22 05:40 Temperature 98.5 F Pulse Rate 84 Respiratory Rate 13 Blood Pressure 140/88 Pulse Oximetry 98 Oxygen Delivery Intake/Output Intake/Output: Intake & Output 04/09/22 04/10/22 04/11/22 04/12/22 23:59 23:59 23:59 23:59 Intake Total 1000 2000 1000 Output Total 1150 Balance 1340 138 4067 Meds/Results Medications: Active Medications Generic Name Dose Route Start Last Admin Trade Name Freq PRN Reason Stop Dose Admin Heparin Sodium (Porcine) 5,000 units 04/11/22 06:00 04/12/22 05:31 Heparin Sodium 5,000 Units/Ml Vial SUB-Q 5,000 units Q8HR JULIETA Administration Hydralazine HCl 10 mg 04/11/22 09:38 Hydralazine Hcl 20 Mg/Ml Vial IV PUSH Q6HR PRN Blood Pressure - High Hydromorphone HCl 1 mg 04/11/22 00:28 04/12/22 05:31 Hydromorphone Hcl Inj (*Crx) 1 Mg/Ml Syr IV PUSH 1 mg Q4H PRN Administration Pain Rated 7-10 Sodium Chloride 1,000 mls @ 125 mls/hr 04/11/22 00:30 04/12/22 05:32 Normal Saline Iv IV CONT 125 mls/hr .Q8H JULIETA Administration Ondansetron HCl 4 mg 04/11/22 00:28 04/11/22 10:12 Ondansetron Inj 4 Mg/2 Ml Vial IV PUSH 4
[2022-04-12] MEDS: PHENOL/SOD PHENO SPRAY CHERRY (*BKC) 1 SPRAY MUCOUS MEM (10:26)
[2022-04-12 13:57] VITALS: BP 146/58; PULSE 90; RESP 20; TEMP 37.1; O2SAT 100
[2022-04-12] MEDS: SODIUM CHLORIDE 0.9% IV 1,000 ML 100 ML IV CONT (14:07)
[2022-04-12] MEDS: IBUPROFEN IV 800 MG/200 ML 800 MG/200 ML BAG 400 MG IVPB (18:27)
[2022-04-12 19:56] VITALS: O2SAT 100
[2022-04-12] MEDS: FAMOTIDINE 20 MG/2 ML VIAL IV PUSH (20:17)
[2022-04-12 22:00] VITALS: BP 148/50; PULSE 85; RESP 14; TEMP 37.3; O2SAT 99
[2022-04-12 23:24] LABS: Glucose Point of Care 126 mg/dl (65-105)
[2022-04-13] VITALS (13 sets, daily range): BP systolic 136–171; BP diastolic 52–64; PULSE 90–106; RESP 10–25; TEMP 36.1–37.7; O2SAT 91–98
[2022-04-13] MEDS: SODIUM CHLORIDE 0.9% IV 1,000 ML 100 ML IV CONT (01:00)
[2022-04-13 05:20] LABS: Glucose Point of Care 104 mg/dl (65-105)
--- NOTE | 2022-04-13 06:47 | PM.PNGS ---
Progress Note: A&P Assessment and Plan (1) Small bowel obstruction: Code(s): K56.609 - Unspecified intestinal obstruction, unspecified as to partial versus complete obstruction Status: Acute Assessment and Plan: pain continues to improve. Pending labs and plain films this morning. We will go ahead and get water soluble small-bowel follow-through today. Further plans pending this study. Subjective Subjective Date/Time Seen: 04/13/22 06:47 Patient reports: no new complaints, pain is less, no flatus, no bowel movement and afebrile Review of Systems Review of Systems: All systems reviewed & are unremarkable except as noted in HPI and below ( HPI and those items noted below) Constitutional: Constitutional: Denies chills and Denies fever(s) Cardiovascular: Cardiovascular: Denies chest pain, Denies diaphoresis, Denies dyspnea and Denies paroxysmal nocturnal dyspnea Respiratory: Respiratory: Denies chest congestion, Denies cough and Denies dyspnea Integumentary/Breasts: Skin/Breast: Denies lesions and Denies rash Exam Const: General: comfortable and no acute distress; No confusion Orientation/consciousness: patient oriented x3 and No confusion GI: Inspection: non-distended and scaphoid GI Palp: Yes Soft to palpation, Yes Tenderness to palpation present (GI) ( mild tenderness), No Guarding due to palpation present (GI) and No Rebound tenderness present Auscultation: Hypoactive bowel sounds present Neuro: General: patient oriented x3, no focal motor deficits and No confusion Extrem: General: no calf tenderness and no edema Psych: Affect: normal affect Insight: Good insight present (Psych) Judgement: Good judgement present (Psych) Objective Data Vital Signs Vital Signs: Vital Signs - 24 hr 04/12/22 13:57 04/12/22 19:56 04/12/22 22:00 Temperature 37.1 C 37.3 C Pulse Rate 90 85 Respiratory Rate 20 14 Blood Pressure 146/58 H 148/50 H Pulse Oximetry 100 100 99 Oxygen Delivery Room Air 04/13/22 06:00 Temperature 36.7 C Pulse Rate 90 Respiratory Rate 14 Blood Pressure 150/54 H Pulse Oximetry 96 Oxygen Delivery Intake/Output Intake/Output: Intake & Output 04/10/22 04/11/22 04/12/22 04/13/22 23:59 23:59 23:59 23:59 Intake Total 1000 2000 2200 1000 Output Total 1150 100 Balance 1380 071 5317 1000 Meds/Results Medications: Active Medications Generic Name Dose Route Start Last Admin Trade Name Freq PRN Reason Stop Dose Admin Enoxaparin Sodium 40 mg 04/13/22 09:00 Enoxaparin 40 Mg/0.4 Ml Syringe SUB-Q DAILY JULIETA Famotidine 20 mg 04/12/22 21:00 04/12/22 20:17 Famotidine 20 Mg/2 Ml Vial IV PUSH 20 mg Q12HR JULIETA Administration Hydralazine HCl 10 mg 04/11/22 09:38 Hydralazine Hcl 20 Mg/Ml Vial IV PUSH Q6HR PRN Blood Pressure - High Hydromorphone HCl 1 mg 04/11/22 00:28 04/12/22 05:31 Hydromorphone Hcl Inj (*Crx) 1 Mg/Ml Syr IV PUSH 1 mg Q4H PRN Administration Pain Rated 7-10 Sodium Chloride 1,000 mls @ 100 mls/hr 04/11/22 00:30 04/13/22 01:00 Normal Saline Iv IV CONT 100 mls/hr .Q10H JULIETA Administration Ibuprofen 800 mg in 200 mls @ 400 mls/hr 04/12/22 12:37 04/12/22 22:25 Caldolor 800 Mg/200 Ml IVPB Infused Q6H PRN Infusion Pain Rated 1-3 Morphine Sulfate 2 mg 04/12/22 12:37 Morphine Sulfate (*Crx) 2 Mg/Ml Inj IV PUSH Q2H PRN Pain Rated 4-6 Morphine Sulfate 4 mg 04/12/22 12:37 Morphine Sulfate (*Crx) 4 Mg/Ml Inj IV PUSH Q2H PRN Pain Rated 7-10 Naloxone HCl 0.1 mg 04/12/22 12:37 Naloxone Hcl 0.4 Mg/Ml Vial IV PUSH Q2M PRN Opiate Reversal Ondansetron HCl 4 mg 04/11/22 00:28 04/11/22 10:12 Ondansetron Inj 4 Mg/2 Ml Vial IV PUSH 4 mg Q4H PRN Administration Nausea Phenol 1 spray 04/12/22 08:47 04/12/22 10:26 Phenol/Sod Pheno [place] (*Bkc) MUCOUS MEM 1 spray PRN PRN Administration Sore Throat
[2022-04-13] MEDS: ENOXAPARIN 40 MG/0.4 ML SYRINGE SUB-Q (08:31)
[2022-04-13] MEDS: FAMOTIDINE 20 MG/2 ML VIAL IV PUSH ×2 (08:32→20:27)
[2022-04-13 09:37] LABS: Anion Gap 5 mmol/L (8-16); Blood Urea Nitrogen 14 mg/dL (7-17); Calcium 7.9 mg/dL (8.4-10.2); Carbon Dioxide 24 mmol/L (22-30); Chloride 110 mmol/L (98-107); Estimated CRCL calculation 63 ml/min; Estimated Glomerular Filt Rate > 60; Glucose 87 mg/dL (65-110); Potassium 4.1 mmol/L (3.4-5.0); Sodium 139 mmol/L (137-145)
[2022-04-13] MEDS: IBUPROFEN IV 800 MG/200 ML 800 MG/200 ML BAG 400 MG IVPB ×2 (11:28→20:25)
--- NOTE | 2022-04-13 11:29 | PC.NURSE ---
Patient having xray routine, having cramping, requested ibuprofen. Confirmed with charge nurse Lianet ruiz to give medication in X-ray. Ibuprofen IV 800/200 at 400ml/hr, unable to scan bracelet, manually entered.
--- NOTE | 2022-04-13 13:43 | WPDHPUPDATE1 ---
History and Physical Update Update Date/Time: 04/13/22 13:43 History and Physical has been reviewed, including an updated exam of the patient. There are NO changes in the patient's condition. Risks, benefits, and alternatives have been discussed and questions answered. Patient agrees to proceed with procedure.
--- NOTE | 2022-04-13 13:49 | WPDANESEPPF ---
Anes - Initial Pre Proc Eval Procedure: Operation Date: 04/13/22 13:30 Proposed Procedures p Exploratory Laparotomy for Small Bowel Obstruction - Kameron Wick MD Date/Time: 04/13/22 13:49 Surgeon: Moustapha Osorio MD Pre Op Diagnosis: small bowel obstruction Patient Data Age: 71 Gender: F Height: 1.63 m Weight: 64.5 kg Last Vital Signs Temp 36.7 C 04/13/22 12:58 Pulse 98 04/13/22 12:58 Resp 16 04/13/22 12:58 BP 136/56 L 04/13/22 12:58 Pulse Ox 96 04/13/22 12:58 O2 Del Method Room Air 04/13/22 12:58 Allergies Allergy/AdvReac Type Severity Reaction Status Date / Time adhesive Allergy Unknown RASH Verified 04/10/22 21:11 doxycycline Allergy Unknown Cramping Verified 04/10/22 21:11 of the Muscles Home Medications Medication Instructions Recorded Confirmed Type atorvastatin 10 mg tablet 10 mg PO HS 04/10/22 04/11/22 History losartan 100 mg tablet 100 mg PO DAILY 04/10/22 04/11/22 History cholecalciferol (vitamin D3) 125 125 mcg PO DAILY 04/11/22 04/11/22 History mcg (5,000 unit) capsule (Dialyvite Vitamin D) vit C 250 mg-vit E 90 mg-zinc 40 1 tablet PO DAILY 04/11/22 04/11/22 History mg-copper 1 [id number] capsule (PreserVision AREDS-2) Laboratory Tests 04/12/22 04/13/22 04/13/22 23:19 04:57 08:32 Sodium 139 mmol/L mmol/L (137-145) Potassium 4.1 mmol/L mmol/L (3.4-5.0) Chloride 110 mmol/L H mmol/L (98-107) Carbon Dioxide 24 mmol/L mmol/L (22-30) Anion Gap 5 mmol/L L mmol/L (8-16) BUN 14 mg/dL mg/dL (7-17) Creatinine 0.60 mg/dL L mg/dL (0.7-1.0) Estim Creat Clear Calc 63 ml/min ml/min Estimated GFR > 60 (59 - ) Glucose 87 mg/dL mg/dL (65-110) POC Capillary Glucose 126 mg/dl H mg/dl 104 mg/dl mg/dl (65-105) (65-105) Calcium 7.9 mg/dL L mg/dL (8.4-10.2) Patient hx anesthesia problems: none Family hx anesthesia problems: none Results Review: All pre-operative results and documents have been reviewed as part of the pre-operative evaluation. [facility] Past Medical History Medical History Hiatal hernia Recurrent Hyperlipidemia Hypertension Surgical History Surgical History Colovesical fistula Sigmoidectomy and bladder closure performed in [place] February 2021 Paraesophageal hiatal hernia Repair laparoscopically 14 or 15 years ago at outside hospital Family History Family History Mother Family history of chronic obstructive pulmonary disease Family history of malignant neoplasm of urinary bladder Patient's mother is Social History Social History Smoking status: Never smoker Alcohol intake: never Substance use: never Substance use type: does not use Lack of Transportation: No Lack of Food: Never True Current Housing: I Have Housing Concerned About Future Housing: No Difficulty Paying Gas/Electric Bills: No Difficulty Paying for Meds: No Currently Unemployed: No Education: Bachelor's Degree Difficulty w/ Childcare or Family Care: No Gender identity (if verbalized by the patient): Female Spiritual care concerns: No Anes - Eval Final PreProcedure Day of Procedure 04/13/22 13:49 Patient weight: normal Heart: regular rate and rhythm Lungs: clear to auscultation Airway: Mallampati scale class II Neurological: alert and oriented Last oral intake: >/= 8 hours ASA classification: III Emergent: yes Anesthetic plan: proceed Anesthesia type and monitoring: general ETT and standard monitoring Results Review: All pre-operative results and documents have been reviewed as part of the pre-operative evaluatio
[2022-04-13] MEDS: LACTATED RINGERS 1,000 ML 30 ML IV CONT ×2 (13:52→15:16)
--- NOTE | 2022-04-13 14:42 | PM.IMPN ---
Progress Note: A&P Assessment and Plan (1) Small bowel obstruction: Code(s): K56.609 - Unspecified intestinal obstruction, unspecified as to partial versus complete obstruction Status: Acute Assessment and Plan: CT abd pelvis shows SBO. General surgery consulted. NG to low intermittent suction Bowel rest, IV fluids and supportive care 04/12/22 KUB unchanged. 04/13/22 pt underwent small-bowel follow-through today and it revealed complete SBO. Surgery and pt both agreed on laparotomy and adhesiolysis. Patient underwent surgery this afternoon. Surgery recommendations and input are appreciated. (2) Generalized abdominal pain: Code(s): R10.84 - Generalized abdominal pain Status: Acute Assessment and Plan: Most likely secondary to SBO Pain management (3) Nausea and vomiting: Qualifiers: Vomiting type: bilious vomiting Qualified Code(s): R11.14 - Bilious vomiting Code(s): R11.2 - Nausea with vomiting, unspecified Status: Acute Assessment and Plan: Most likely secondary to SBO Supportive care (4) Hypertension: Code(s): I10 - Essential (primary) hypertension Status: Chronic Assessment and Plan: Chronic, stable. Hold losartan while NPO. PRN hydralazine SBP>160 or DBP>100 Plan CODE STATUS: FULL CODE Disposition: Inpatient. Discharge disposition: home Time Spent With Patient Time with patient: Greater than 35 minutes Subjective Date/time seen: 04/13/22 14:42 Interval history: 71-year-old female with a history hypertension and hyperlipidemia. Patient diagnosed with small-bowel obstruction. Patient was seen postoperatively. Patient was having abdominal pain postoperatively and has been given analgesics as needed. Patient denies chest pain, shortness a breath, nausea, vomiting, diarrhea, fevers. Patient's last bowel movement was 04/10/2022. Review of Systems Review of Systems: All systems reviewed & are unremarkable except as noted in HPI and below Exam Narrative: GENERAL: Comfortable, no acute distress HENMT: moist mucous membranes EYES: EOM intact b/l NECK: no lymphadenopathy RESPIRATORY: clear to auscultation CARDIO: RRR GI: Surgical bandages over abdomen intact, diffuse tenderness, soft, bowel sounds present SKIN: no rashes EXTREMITIES: no edema, redness or tenderness Objective Data Vital Signs Vital Signs: Vital Signs - 24 hr 04/12/22 19:56 04/12/22 22:00 04/13/22 06:00 Temperature 99.1 F 98.1 F Pulse Rate 85 90 Respiratory Rate 14 14 Blood Pressure 148/50 H 150/54 H Pulse Oximetry 100 99 96 Oxygen Delivery Room Air 04/13/22 08:00 04/13/22 12:58 Temperature 98.1 F Pulse Rate 98 Respiratory Rate 16 Blood Pressure 136/56 L Pulse Oximetry 96 Oxygen Delivery Room Air Room Air Intake/Output Intake/Output: Intake & Output 04/10/22 04/11/22 04/12/22 04/13/22 23:59 23:59 23:59 23:59 Intake Total 1000 2000 2200 1200 Output Total 6542 047 6266 Balance 2634 085 4762 0 Meds/Results Medications: Active Medications Generic Name Dose Route Start Last Admin Trade Name Freq PRN Reason Stop Dose Admin Enoxaparin Sodium 40 mg 04/13/22 09:00 04/13/22 08:31 Enoxaparin 40 Mg/0.4 Ml Syringe SUB-Q 40 mg DAILY JULIETA Administration Famotidine 20 mg 04/12/22 21:00 04/13/22 08:32 Famotidine 20 Mg/2 Ml Vial IV PUSH 20 mg Q12HR JLUIETA Administration Hydralazine HCl 10 mg 04/11/22 09:38 Hydralazine Hcl 20 Mg/Ml Vial IV PUSH Q6HR PRN Blood Pressure - High Hydromorphone HCl 1 mg 04/11/22 00:28 04/12/22 05:31 Hydromorphone Hcl Inj (*Crx) 1 Mg/Ml Syr IV PUSH 1 mg Q4H PRN Administration Pain Rated 7-10 Hydromorphone HCl 0.5 mg 04/13/22 13:50 Hydromorphone Hcl Inj (*Crx) 1 Mg/Ml Syr IV PUSH Q5M PRN Pain Sodium Chloride 1,000 mls @ 100 mls/hr 04/11/22 00:30 04/13/22 01:00 Normal Saline Iv IV CONT 100 mls/hr
[2022-04-13] MEDS: HYDROmorphone HCL INJ (*CRX) 1 MG/ML SYR 0.5 MG IV PUSH ×4 (15:31→16:24)
--- NOTE | 2022-04-13 15:52 | P.OP_ITS ---
Procedure Note - Detailed Date of Procedure 04/13/22 Pre-op Diagnosis small bowel obstruction Post-op Diagnosis Same Procedure Performed ADHESIOLYSIS Surgeon Kameron Wick MD Senior Cytotechnologist Cate Bailey [facility] Anesthesia General Indications Patient is a 71-year-old woman who just over a year ago had sigmoidectomy with repair of colovesical fistula. She presented with abdominal pain nausea and vomiting. Imaging showed a small-bowel obstruction. Despite nasogastric suction for about 72 hours, small-bowel series today shows persistent complete obstruction. She is taken to surgery now for laparotomy for small bowel obstruction. Findings Pelvic adhesions were the cause of the small-bowel obstruction. The particular transition point appeared to be in the distal ileum which was densely adhesed to the cecum. No bowel infarction or ischemic change was noted. Description of Procedure Patient was taken to surgery and induced into general anesthesia. The abdomen is prepped and draped. Most of the previous lower abdominal midline scar was excised. We extended this incision just above the umbilicus as well. We then dissected through the subcutaneous and entered the midline fascia. We opened the fascia along the midline and then entered the peritoneal cavity. We were greeted with abundant light green but mostly serous ascites. This was suctioned away. There were also several loops of dilated small bowel. Once the ascites was suctioned away, we extended the in incision the length of the wound. I then began eviscerating dilated small bowel. An initial dense adhesion to the right pelvic sidewall was encountered and taken down. However the transition point was farther down and involved a no other dense adhesion to the cecum. This was carefully taken down as well. Both the cecum and the bowel loop itself for carefully examined to make sure there was no injury. Both looked good. This was clearly the transition point and I freed up a few more adhesions that were filmy and not particularly significant. I then ran the small intestine from the ligament of Treitz back to the ileocecal valve. There were no other adhesions in the bowel was completely free. I then checked the nasogastric tube. I milked some of the small bowel content back into the stomach. It was evacuated through the stomach. We continued until most of the extremely dilated bowel had been decompressed. Towards the end of this process, the initial NG tube was removed and a new NG tube was placed. This NG tube was positioned appropriately in the stomach. The bowel was then decompressed as much as needed. General abdominal exploration was otherwise negative. Placed a small intestine back in the abdomen in gentle S shaped curves. The transverse colon and omentum were positioned over the small bowel. The midline fascia was then closed with bidirectional running 1. PDS suture. Subcutaneous was closed with interrupted 3-0 Vicryl suture. Skin was closed with leonidas. The incision was dressed with Xeroform gauze, fluffs and Medipore tape. Patient was awakened and taken to recovery in good condition. Sponge and needle counts were correct x2. Estimated Blood Loss -5 Urine Output -100.0 Drains Yes (Nasogastric tube) Packing No Pathology None sent Complications No immediate complications Condition Stable Disposition PACU [facility] Billing Surgery - Charge Forward: Surgery Billing (Adhesiolysis for small bowel obstruction)
[2022-04-13] MEDS: KCL 30 MEQ/0.9% SOD CHL 1,000 ML 100 ML IV CONT (17:19)
--- NOTE | 2022-04-13 22:07 | PC.NURSE ---
pt requiring morphine be changed to Dilaudid states morphine makes her nauseous. called exchange to change pt to Dilaudid. Awaiting call back.
[2022-04-13 22:55] LABS: Glucose Point of Care 131 mg/dl (65-105)
[2022-04-14] MEDS: IBUPROFEN IV 800 MG/200 ML 800 MG/200 ML BAG 400 MG IVPB (02:50)
[2022-04-14] MEDS: KCL 30 MEQ/0.9% SOD CHL 1,000 ML 100 ML IV CONT (03:12)
[2022-04-14 04:46] LABS: Glucose Point of Care 121 mg/dl (65-105)
[2022-04-14 05:51] VITALS: BP 149/65; PULSE 87; RESP 18; TEMP 36.6; O2SAT 97
--- NOTE | 2022-04-14 06:10 | PC.NURSE ---
150 ml out ng
--- NOTE | 2022-04-14 06:50 | PM.PNGS ---
Progress Note: A&P Assessment and Plan (1) Small bowel obstruction: Code(s): K56.609 - Unspecified intestinal obstruction, unspecified as to partial versus complete obstruction Status: Acute Assessment and Plan: doing well postop day 1. Await return bowel function. Ambulate. Continue NPO and NG tube. (2) Protein-calorie malnutrition, moderate: Code(s): E44.0 - Moderate protein-calorie malnutrition Status: Acute Assessment and Plan: Have PICC line placed and start TPN today. Subjective Subjective Date/Time Seen: 04/14/22 06:50 Patient reports: no new complaints, no flatus, no bowel movement and afebrile Exam GI: Inspection: non-distended and incision ( Dressing dry and intact) GI Palp: Yes Soft to palpation and Yes Tenderness to palpation present (GI) Auscultation: absent bowel sounds Objective Data Vital Signs Vital Signs: Vital Signs - 24 hr 04/13/22 08:00 04/13/22 12:58 04/13/22 15:26 Temperature 36.7 C 36.8 C Pulse Rate 98 106 H Respiratory Rate 16 25 H Blood Pressure 136/56 L 154/59 H Pulse Oximetry 96 98 Oxygen Delivery Room Air Room Air Simple Face Mask Oxygen Flow Rate 10 04/13/22 15:41 04/13/22 15:56 04/13/22 16:11 Temperature Pulse Rate 92 91 94 Respiratory Rate 16 10 L 17 Blood Pressure 153/59 H 148/60 H 170/63 H Pulse Oximetry 95 93 91 Oxygen Delivery Room Air Room Air Room Air Oxygen Flow Rate 04/13/22 16:26 04/13/22 16:36 04/13/22 16:54 Temperature 37.7 C H 36.1 C L Pulse Rate 97 96 96 Respiratory Rate 12 12 13 Blood Pressure 171/64 H 161/63 H 161/58 H Pulse Oximetry 92 92 97 Oxygen Delivery Room Air Room Air Oxygen Flow Rate 04/13/22 17:24 04/13/22 18:22 04/13/22 21:35 Temperature 36.1 C L 36.2 C L 36.7 C Pulse Rate 93 93 93 Respiratory Rate 13 13 18 Blood Pressure 148/52 H 152/56 H 149/60 H Pulse Oximetry 97 97 96 Oxygen Delivery Oxygen Flow Rate 04/13/22 20:00 04/14/22 05:51 Temperature 36.6 C Pulse Rate 87 Respiratory Rate 18 Blood Pressure 149/65 H Pulse Oximetry 96 97 Oxygen Delivery Room Air Oxygen Flow Rate Intake/Output Intake/Output: Intake & Output 04/11/22 04/12/22 04/13/22 04/14/22 23:59 23:59 23:59 23:59 Intake Total 19990 1999 1000 Output Total 1815 716 8917 350 Balance 850 2100 300 650 Meds/Results Medications: Active Medications Generic Name Dose Route Start Last Admin Trade Name Freq PRN Reason Stop Dose Admin Enoxaparin Sodium 40 mg 04/13/22 09:00 04/13/22 08:31 Enoxaparin 40 Mg/0.4 Ml Syringe SUB-Q 40 mg DAILY JULIETA Administration Famotidine 20 mg 04/12/22 21:00 04/13/22 20:27 Famotidine 20 Mg/2 Ml Vial IV PUSH 20 mg Q12HR JULIETA Administration Hydralazine HCl 10 mg 04/11/22 09:38 Hydralazine Hcl 20 Mg/Ml Vial IV PUSH Q6HR PRN Blood Pressure - High Hydromorphone HCl 1 mg 04/13/22 22:15 Hydromorphone Hcl Inj (*Crx) 1 Mg/Ml Syr IV PUSH Q3H PRN Pain Rated 7-10 Hydromorphone HCl 0.5 mg 04/13/22 22:15 Hydromorphone Hcl Inj (*Crx) 1 Mg/Ml Syr IV PUSH Q3H PRN Pain Rated 4-6 Ibuprofen 800 mg in 200 mls @ 400 mls/hr 04/12/22 12:37 04/14/22 02:50 Caldolor 800 Mg/200 Ml IVPB 400 mls/hr Q6H PRN Administration Pain Rated 1-3 Potassium Chloride/Sodium Chloride 1,000 mls @ 100 mls/hr 04/13/22 17:00 04/14/22 03:12 Kcl 30 Meq/Ns IV CONT 100 mls/hr .Q10H JULIETA Administration Naloxone HCl 0.1 mg 04/12/22 12:37 Naloxone Hcl 0.4 Mg/Ml Vial IV PUSH Q2M PRN Opiate Reversal Ondansetron HCl 4 mg 04/11/22 00:28 04/11/22 10:12 Ondansetron Inj 4 Mg/2 Ml Vial IV PUSH 4 mg Q4H PRN Administration Nausea Phenol 1 spray 04/12/22 08:47 04/12/22 10:26 Phenol/Sod Pheno [place] Blum (*Bkc) MUCOUS MEM 1 spray PRN PRN Administration Sore Throat Radiology Results: ITS Impressions Abdomen/Pelvis CT 04/11/22 07:57 IMPRESSION: Yuridia
[2022-04-14 07:05] LABS: Hematocrit 36.7 % (37.0-47.0); Hemoglobin 11.9 g/dL (12.0-15.0); Mean Corpuscular HGB Conc 32.4 g/dl (32-36); Mean Corpuscular Hemoglobin 29.3 pg (26-34); Mean Corpuscular Volume 90.4 fl (80-100); Mean Platelet Volume 10.3 fl (7.4-10.4); Platelet Count Result 181 k/mm3 (150-375); Red Blood Count 4.06 M/mm3 (4.2-5.4); Red Cell Distribution Width 13.2 % (11.5-14.5); White Blood Count 7.7 K/mm3 (4.5-10.0)
--- NOTE | 2022-04-14 07:53 | WPDANESPN ---
Anes - Prog Note Post-Op Date/Time: 04/14/22 07:53 Cardiovascular status: normal Respiratory status: normal Airway patency: baseline Mental status: baseline Post-Op hydration status: other (NG in place. patient on ice chips and getting a PICC line later today for TPN) Vital Signs: Last Vital Signs Temp 36.6 C 04/14/22 05:51 Pulse 87 04/14/22 05:51 Resp 18 04/14/22 05:51 BP 149/65 H 04/14/22 05:51 Pulse Ox 97 04/14/22 05:51 O2 Del Method Room Air 04/13/22 20:00 O2 Flow Rate 10 04/13/22 15:26 Pain Score (VAS): 2 I/O: Intake & Output 04/13/22 04/13/22 04/14/22 15:59 23:59 07:59 Intake Total 508 444 5251 Output Total 1200 350 Balance -1000 800 650 Laboratory Tests 04/14/22 06:37 04/13/22 04/13/22 04/13/22 08:32 16:49 22:51 WBC RBC Hgb Hct MCV MCH MCHC RDW Plt Count MPV Sodium 139 Potassium 4.1 Chloride 110 H Carbon Dioxide 24 Anion Gap 5 L BUN 14 Creatinine 0.60 L Estim Creat Clear Calc 63 Estimated GFR > 60 Glucose 87 POC Capillary Glucose 131 H Calcium 7.9 L Total Bilirubin AST ALT Alkaline Phosphatase Total Protein Albumin Blood Type B Positive Antibody Screen Negative 04/14/22 04/14/22 04/14/22 04:41 06:37 06:37 WBC 7.7 RBC 4.06 L Hgb 11.9 L Hct 36.7 L MCV 90.4 MCH 29.3 MCHC 32.4 RDW 13.2 Plt Count 181 MPV 10.3 Sodium Pending Potassium Pending Chloride Pending Carbon Dioxide Pending Anion Gap Pending BUN Pending Creatinine Pending Estim Creat Clear Calc Pending Estimated GFR Pending Glucose Pending POC Capillary Glucose 121 H Calcium Pending Total Bilirubin Pending AST Pending ALT Pending Alkaline Phosphatase Pending Total Protein Pending Albumin Pending Blood Type Antibody Screen Patient Feedback: Patient satisfied with anesthetic care.
[2022-04-14] MEDS: ENOXAPARIN 40 MG/0.4 ML SYRINGE SUB-Q (09:03)
[2022-04-14] MEDS: FAMOTIDINE 20 MG/2 ML VIAL IV PUSH ×2 (09:04→20:02)
[2022-04-14 09:18] LABS: Basophils Percent Auto 0.4 % (0.2-1.2); Eosinophils Percent Auto 0.5 % (0-4.4); Hematocrit 36.7 % (37.0-47.0); Immature Granulocyte Absolute 0.04 K/mm3 (0.00-0.031); Immature Granulocyte Percent A 0.5 % (0-0.5); Lymphocytes Percent Auto 10.4 % (18.3-44.2); Mean Corpuscular HGB Conc 32.7 g/dl (32-36); Mean Corpuscular Hemoglobin 29.6 pg (26-34); Mean Corpuscular Volume 90.6 fl (80-100); Mean Platelet Volume 10.2 fl (7.4-10.4); Monocytes Absolute Auto 0.7 K/mm3 (0.1-0.6); Monocytes Percent Auto 9.1 % (2.6-8.5); Neutrophils Absolute Auto 6.1 K/mm3 (1.3-6.7); Neutrophils Percent Auto 79.1 % (45.5-73.1); Platelet Count Result 168 k/mm3 (150-375); Red Blood Count 4.05 M/mm3 (4.2-5.4); Red Cell Distribution Width 13.2 % (11.5-14.5); White Blood Count 7.7 K/mm3 (4.5-10.0)
[2022-04-14 09:23] LABS: Partial Thromboplastin Time 24.9 SECONDS (22.3-36.8)
[2022-04-14 09:24] LABS: Alanine Aminotransferase 13 U/L (6-35); Albumin Level 2.9 g/dL (3.5-5.1); Alkaline Phosphatase 57 U/L (38-126); Anion Gap 6 mmol/L (8-16); Aspartate Amino Transferase 25 U/L (14-36); Bilirubin,Total 0.8 mg/dL (0.2-1.3); Blood Urea Nitrogen 12 mg/dL (7-17); Calcium 7.8 mg/dL (8.4-10.2); Carbon Dioxide 25 mmol/L (22-30); Chloride 112 mmol/L (98-107); Estimated CRCL calculation 55 ml/min; Estimated Glomerular Filt Rate > 60; Glucose 107 mg/dL (65-110); Potassium 4.1 mmol/L (3.4-5.0); Sodium 143 mmol/L (137-145)
[2022-04-14 09:31] LABS: Transferrin 162 mg/dL (206-381)
[2022-04-14] MEDS: AMINO ACIDS 5%/D15W/E-LYTES/CA 2,000 ML with MULTIVITAMINS-12 INJ VIAL 1 2.5 ML, MULTIV... 60 ML IV CONT (10:28)
[2022-04-14] MEDS: FAT EMULSIONS IV 20% 250 ML 20.83 ML IVPB (10:30)
--- NOTE | 2022-04-14 13:52 | PM.IMPN ---
Progress Note: A&P Assessment and Plan (1) Small bowel obstruction: Code(s): K56.609 - Unspecified intestinal obstruction, unspecified as to partial versus complete obstruction Status: Acute Assessment and Plan: CT abd pelvis shows SBO. NG to low intermittent suction Bowel rest, IV fluids and supportive care 04/12/22 KUB unchanged. 04/13/22 pt underwent small-bowel follow-through and it revealed complete SBO. Surgery and pt both agreed on laparotomy and adhesiolysis. Patient underwent surgery. Surgery recommendations and input are appreciated. 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 Surgery was done last year. Patient's last bowel movement was 04/10/2022 (2) Generalized abdominal pain: Code(s): R10.84 - Generalized abdominal pain Status: Acute Assessment and Plan: Most likely secondary to SBO Pain management with analgesics (3) Nausea and vomiting: Qualifiers: Vomiting type: bilious vomiting Qualified Code(s): R11.14 - Bilious vomiting Code(s): R11.2 - Nausea with vomiting, unspecified Status: Acute Assessment and Plan: Most likely secondary to SBO Supportive care Zofran p.r.n. (4) Hypertension: Code(s): I10 - Essential (primary) hypertension Status: Chronic Assessment and Plan: Chronic, stable. Hold losartan while NPO. PRN hydralazine SBP>160 or DBP>100 Plan CODE STATUS: FULL CODE Disposition: Inpatient. Discharge disposition: home Time Spent With Patient Time with patient: Greater than 35 minutes Subjective Date/time seen: 04/14/22 13:52 Interval history: 71-year-old female with a history hypertension and hyperlipidemia. Patient diagnosed with small-bowel obstruction. Patient has history of bowel surgery last year due to fistula. Patient was having abdominal pain postoperatively. Patient denies chest pain, shortness a breath, nausea, vomiting, diarrhea, fevers. Patient was having some ear pain. Patient's last bowel movement was 04/10/2022. Review of Systems Review of Systems: All systems reviewed & are unremarkable except as noted in HPI and below Exam Narrative: GENERAL: Comfortable, no acute distress HENMT: moist mucous membranes, ears clear bilaterally positive light reflex no cerumen noted, NG tube intact and patent with green discharge EYES: EOM intact b/l NECK: no lymphadenopathy RESPIRATORY: clear to auscultation CARDIO: RRR GI: Surgical bandages over abdomen intact, diffuse tenderness, soft, bowel sounds present SKIN: no rashes EXTREMITIES: no edema, redness or tenderness Objective Data Vital Signs Vital Signs: Vital Signs - 24 hr 04/13/22 15:26 04/13/22 15:41 04/13/22 15:56 Temperature 98.3 F Pulse Rate 106 H 92 91 Respiratory Rate 25 H 16 10 L Blood Pressure 154/59 H 153/59 H 148/60 H Pulse Oximetry 98 95 93 Oxygen Delivery Simple Face Mask Room Air Room Air Oxygen Flow Rate 10 04/13/22 16:11 04/13/22 16:26 04/13/22 16:36 Temperature 99.9 F H Pulse Rate 94 97 96 Respiratory Rate 17 12 12 Blood Pressure 170/63 H 171/64 H 161/63 H Pulse Oximetry 91 92 92 Oxygen Delivery Room Air Room Air Room Air Oxygen Flow Rate 04/13/22 16:54 04/13/22 17:24 04/13/22 18:22 Temperature 97 F L 97 F L 97.2 F L Pulse Rate 96 93 93 Respiratory Rate 13 13 13 Blood Pressure 161/58 H 148/52 H 152/56 H Pulse Oximetry 97 97 97 Oxygen Delivery Oxygen Flow Rate 04/13/22 21:35 04/13/22 20:00 04/14/22 05:51 Temperature 98.1 F 97.9 F Pulse Rate 93 87 Respiratory Rate 18 18 Blood Pressure 149/60 H 149/65 H Pulse Oximetry 96 96 97 Oxygen Delivery Room Air Oxygen Flow Rate 04/14/22 08:00 Temperature Pulse Rate Respiratory Rate Blood Pressure Pulse Oximetry Oxygen Delivery Room Air Oxygen Flow
[2022-04-14 14:00] VITALS: BP 152/57; PULSE 87; RESP 16; TEMP 37; O2SAT 97
[2022-04-14 18:57] LABS: Glucose Point of Care 175 mg/dl (65-105)
[2022-04-14 19:32] VITALS: O2SAT 97
[2022-04-14 21:33] VITALS: BP 149/59; PULSE 79; RESP 14; TEMP 37.2; O2SAT 95
[2022-04-14 23:05] LABS: Glucose Point of Care 159 mg/dl (65-105)
[2022-04-15 05:19] LABS: Glucose Point of Care 144 mg/dl (65-105)
[2022-04-15 06:00] VITALS: BP 139/74; PULSE 75; RESP 14; TEMP 36.8; O2SAT 96
--- NOTE | 2022-04-15 06:49 | PC.NURSE ---
labs drawn from pic line sent to lab for analysis
[2022-04-15 06:53] LABS: Hematocrit 33.1 % (37.0-47.0); Hemoglobin 10.9 g/dL (12.0-15.0); Mean Corpuscular HGB Conc 32.9 g/dl (32-36); Mean Corpuscular Hemoglobin 29.9 pg (26-34); Mean Corpuscular Volume 90.7 fl (80-100); Mean Platelet Volume 10.1 fl (7.4-10.4); Platelet Count Result 141 k/mm3 (150-375); Red Blood Count 3.65 M/mm3 (4.2-5.4); Red Cell Distribution Width 13.2 % (11.5-14.5); White Blood Count 6.1 K/mm3 (4.5-10.0)
[2022-04-15 07:04] LABS: Triglycerides 95 mg/dL (<150)
[2022-04-15 07:17] LABS: Alanine Aminotransferase 14 U/L (6-35); Albumin Level 2.6 g/dL (3.5-5.1); Alkaline Phosphatase 35 U/L (38-126); Anion Gap -1 mmol/L (8-16); Aspartate Amino Transferase 24 U/L (14-36); Bilirubin,Total 0.6 mg/dL (0.2-1.3); Blood Urea Nitrogen 14 mg/dL (7-17); Calcium 7.2 mg/dL (8.4-10.2); Carbon Dioxide 30 mmol/L (22-30); Chloride 108 mmol/L (98-107); Estimated CRCL calculation 90 ml/min; Estimated Glomerular Filt Rate > 60; Glucose 128 mg/dL (65-110); Phosphorus 2.4 mg/dL (2.5-4.5); Sodium 137 mmol/L (137-145)
--- NOTE | 2022-04-15 08:53 | PM.IMPN ---
Progress Note: A&P Assessment and Plan (1) Small bowel obstruction: Code(s): K56.609 - Unspecified intestinal obstruction, unspecified as to partial versus complete obstruction Status: Acute Assessment and Plan: CT abd pelvis shows SBO. NG to low intermittent suction Bowel rest, IV fluids and supportive care 04/12/22 KUB unchanged. 04/13/22 pt underwent small-bowel follow-through and it revealed complete SBO. Surgery and pt both agreed on laparotomy and adhesiolysis. Patient underwent surgery. Surgery recommendations and input are appreciated. 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 Surgery was done last year. Patient's last bowel movement was 04/10/202204/15 Patient has not had a bowel movement Continuing to follow surgery recommendations. Patient's pain has improved and states that she is no longer taking pain medication (2) Generalized abdominal pain: Code(s): R10.84 - Generalized abdominal pain Status: Acute Assessment and Plan: Most likely secondary to SBO Pain management with analgesics (3) Nausea and vomiting: Qualifiers: Vomiting type: bilious vomiting Qualified Code(s): R11.14 - Bilious vomiting Code(s): R11.2 - Nausea with vomiting, unspecified Status: Acute Assessment and Plan: Most likely secondary to SBO Supportive care Zofran p.r.n. (4) Hypertension: Code(s): I10 - Essential (primary) hypertension Status: Chronic Assessment and Plan: Chronic, stable. Hold losartan while NPO PRN hydralazine SBP>160 or DBP>100 Plan CODE STATUS: FULL CODE Disposition: Inpatient. Discharge disposition: home Time Spent With Patient Time with patient: Greater than 35 minutes Subjective Date/time seen: 04/15/22 08:53 Interval history: 61-year-old female with history of hypertension and abdominal surgery. Patient is resting comfortably in bed and in good spirits when being interviewed. Patient having some surgical incision discomfort although she has not needed any pain medication for this. Patient denies chest pain, shortness a breath, nausea, vomiting, bowel movements, flatulence, and fever. Answered all patient's questions to the best of my ability. Review of Systems Review of Systems: All systems reviewed & are unremarkable except as noted in HPI and below Exam Narrative: GENERAL: Comfortable, no acute distress HENMT: moist mucous membranes, ears clear bilaterally positive light reflex no cerumen noted, NG tube intact and patent with green/brown discharge EYES: EOM intact b/l NECK: no lymphadenopathy RESPIRATORY: clear to auscultation CARDIO: RRR GI: Surgical bandages over abdomen intact, diffuse tenderness, soft, bowel sounds present SKIN: no rashes EXTREMITIES: no edema, redness or tenderness Objective Data Vital Signs Vital Signs: Vital Signs - 24 hr 04/14/22 14:00 04/14/22 19:32 04/14/22 21:33 Temperature 98.6 F 98.9 F Pulse Rate 87 79 Respiratory Rate 16 14 Blood Pressure 152/57 H 149/59 H Pulse Oximetry 97 97 95 Oxygen Delivery Room Air 04/15/22 06:00 Temperature 98.3 F Pulse Rate 75 Respiratory Rate 14 Blood Pressure 139/74 Pulse Oximetry 96 Oxygen Delivery Intake/Output Intake/Output: Intake & Output 04/12/22 04/13/22 04/14/22 04/15/22 23:59 23:59 23:59 23:59 Intake Total 2200 2000 1250 200 Output Total 100 1700 350 0 Balance 2100 300 900 200 Meds/Results Medications: Active Medications Generic Name Dose Route Start Last Admin Trade Name Freq PRN Reason Stop Dose Admin Enoxaparin Sodium 40 mg 04/13/22 09:00 04/14/22 09:03 Enoxaparin 40 Mg/0.4 Ml Syringe SUB-Q 40 mg DAILY JULIETA Administration Famotidine 20 mg 04/12/22 21:00 04/14/22 20:02 Famotidine 20 Mg/2 Ml Vial IV PUSH 20
[2022-04-15] MEDS: ENOXAPARIN 40 MG/0.4 ML SYRINGE SUB-Q (09:25)
[2022-04-15] MEDS: FAMOTIDINE 20 MG/2 ML VIAL IV PUSH (09:25)
[2022-04-15] MEDS: AMINO ACIDS 5%/D15W/E-LYTES/CA 2,000 ML with MULTIVITAMINS-12 INJ VIAL 1 2.5 ML, MULTIV... 60 ML IV CONT (10:50)
[2022-04-15] MEDS: FAT EMULSIONS IV 20% 250 ML 20.83 ML IVPB (10:50)
[2022-04-15 10:53] VITALS: BMI 24.4
[2022-04-15 10:59] VITALS: BMI 24.4
[2022-04-15 12:01] LABS: Glucose Point of Care 134 mg/dl (65-105)
[2022-04-15 14:00] VITALS: BP 157/77; PULSE 81; RESP 18; TEMP 36.8; O2SAT 96
--- NOTE | 2022-04-15 15:00 | PM.PNGS ---
Progress Note: A&P Assessment and Plan (1) Small bowel obstruction: Code(s): K56.609 - Unspecified intestinal obstruction, unspecified as to partial versus complete obstruction Status: Acute Assessment and Plan: Await return of bowel function. Continue NG tube, NPO, IV fluids as well as serial abdominal exam and labs. Doing well so far. (2) Protein-calorie malnutrition, moderate: Code(s): E44.0 - Moderate protein-calorie malnutrition Status: Acute Assessment and Plan: Continue TPN while patient NPO. Subjective Subjective Date/Time Seen: 04/15/22 15:00 Post Op day: 2 Patient reports: no new complaints, flatus, no bowel movement and afebrile Exam Const: General: comfortable and no acute distress; No confusion Orientation/consciousness: patient oriented x3 and No confusion GI: Inspection: non-distended and incision (Dry and healing well) GI Palp: Yes Soft to palpation, Yes Tenderness to palpation present (GI), No Guarding due to palpation present (GI) and No Rebound tenderness present Auscultation: Hypoactive bowel sounds present Neuro: General: patient oriented x3, no focal motor deficits and No confusion Extrem: General: no calf tenderness and no edema Psych: Affect: normal affect Insight: Good insight present (Psych) Judgement: Good judgement present (Psych) Objective Data Vital Signs Vital Signs: Vital Signs - 24 hr 04/14/22 19:32 04/14/22 21:33 04/15/22 06:00 Temperature 37.2 C 36.8 C Pulse Rate 79 75 Respiratory Rate 14 14 Blood Pressure 149/59 H 139/74 Pulse Oximetry 97 95 96 Oxygen Delivery Room Air 04/15/22 09:20 Temperature Pulse Rate Respiratory Rate Blood Pressure Pulse Oximetry Oxygen Delivery Room Air Intake/Output Intake/Output: Intake & Output 04/12/22 04/13/22 04/14/22 04/15/22 23:59 23:59 23:59 23:59 Intake Total 2200 2000 1250 2205 Output Total 100 1700 350 0 Balance 2100 443 057 1977 Meds/Results Medications: Active Medications Generic Name Dose Route Start Last Admin Trade Name Freq PRN Reason Stop Dose Admin Enoxaparin Sodium 40 mg 04/13/22 09:00 04/15/22 09:25 Enoxaparin 40 Mg/0.4 Ml Syringe SUB-Q 40 mg DAILY JULIETA Administration Famotidine 20 mg 04/12/22 21:00 04/15/22 09:25 Famotidine 20 Mg/2 Ml Vial IV PUSH 20 mg Q12HR JULIETA Administration Hydralazine HCl 10 mg 04/11/22 09:38 Hydralazine Hcl 20 Mg/Ml Vial IV PUSH Q6HR PRN Blood Pressure - High Hydromorphone HCl 1 mg 04/13/22 22:15 Hydromorphone Hcl Inj (*Crx) 1 Mg/Ml Syr IV PUSH Q3H PRN Pain Rated 7-10 Hydromorphone HCl 0.5 mg 04/13/22 22:15 Hydromorphone Hcl Inj (*Crx) 1 Mg/Ml Syr IV PUSH Q3H PRN Pain Rated 4-6 Ibuprofen 800 mg in 200 mls @ 400 mls/hr 04/12/22 12:37 04/15/22 03:18 Caldolor 800 Mg/200 Ml IVPB Infused Q6H PRN Infusion Pain Rated 1-3 Dextrose 1,000 mls @ 50 mls/hr 04/14/22 10:00 Dextrose 10% IV CONT .Q20H PRN if PN is interrupted Multivitamins 2.5 ml/ 2,005 mls @ 60 mls/hr 04/14/22 10:00 04/15/22 10:50 Multivitamins 2.5 ml/ Amino IV CONT 60 mls/hr Acids/Electrolytes/Dextrose .Q24H JULIETA Administration Protocol Fat Emulsion Intravenous 250 mls @ 20.833 mls/hr 04/14/22 10:00 04/15/22 10:50 Lipids 20% IVPB 20.83 mls/hr Q24H JULIETA Administration Naloxone HCl 0.1 mg 04/12/22 12:37 Naloxone Hcl 0.4 Mg/Ml Vial IV PUSH Q2M PRN Opiate Reversal Ondansetron HCl 4 mg 04/11/22 00:28 04/11/22 10:12 Ondansetron Inj 4 Mg/2 Ml Vial IV PUSH 4 mg Q4H PRN Administration Nausea Phenol 1 spray 04/12/22 08:47 04/12/22 10:26 Phenol/Sod Pheno Froid Blum (*Bkc) MUCOUS MEM 1 spray PRN PRN Administration Sore Throat Radiology Results: ITS Impressions Abdomen/Pelvis CT 04/11/22 07:57 IMPRESSION: Closed loop small bowel obstruction, with mild free fluid in the abdomen, mesenteric
[2022-04-15 19:00] LABS: Glucose Point of Care 151 mg/dl (65-105)
[2022-04-15 20:00] VITALS: PULSE 79; RESP 20; O2SAT 96
[2022-04-15] MEDS: IBUPROFEN IV 800 MG/200 ML 800 MG/200 ML BAG 200 MG IVPB (20:47)
[2022-04-15 21:39] VITALS: BP 162/70; PULSE 79; RESP 20; TEMP 37.3; O2SAT 96
[2022-04-16 00:05] LABS: Glucose Point of Care 138 mg/dl (65-105)
[2022-04-16] MEDS: FAMOTIDINE 20 MG/2 ML VIAL IV PUSH ×3 (00:08→20:38)
[2022-04-16 05:40] LABS: Hemoglobin 11.5 g/dL (12.0-15.0); Mean Corpuscular HGB Conc 32.9 g/dl (32-36); Mean Corpuscular Hemoglobin 29.9 pg (26-34); Mean Corpuscular Volume 90.9 fl (80-100); Mean Platelet Volume 9.9 fl (7.4-10.4); Platelet Count Result 147 k/mm3 (150-375); Red Blood Count 3.85 M/mm3 (4.2-5.4); Red Cell Distribution Width 12.8 % (11.5-14.5); White Blood Count 5.4 K/mm3 (4.5-10.0)
[2022-04-16 05:52] LABS: Anion Gap -2 mmol/L (8-16); Blood Urea Nitrogen 12 mg/dL (7-17); Calcium 7.6 mg/dL (8.4-10.2); Carbon Dioxide 30 mmol/L (22-30); Chloride 101 mmol/L (98-107); Estimated CRCL calculation 103 ml/min; Estimated Glomerular Filt Rate > 60; Glucose 122 mg/dL (65-110); Phosphorus 3.6 mg/dL (2.5-4.5); Potassium 3.7 mmol/L (3.4-5.0); Sodium 129 mmol/L (137-145)
[2022-04-16 05:53] VITALS: BP 150/68; PULSE 80; RESP 16; TEMP 36.8; O2SAT 98
--- NOTE | 2022-04-16 08:41 | PM.IMPN ---
Progress Note: A&P Assessment and Plan (1) Small bowel obstruction: Code(s): K56.609 - Unspecified intestinal obstruction, unspecified as to partial versus complete obstruction Status: Acute Assessment and Plan: CT abd pelvis shows SBO. NG to low intermittent suction Bowel rest, IV fluids and supportive care 04/12/22 KUB unchanged. 04/13/22 pt underwent small-bowel follow-through and it revealed complete SBO. Surgery and pt both agreed on laparotomy and adhesiolysis. Patient underwent surgery. Surgery recommendations and input are appreciated. 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 Surgery was done last year. Patient's last bowel movement was 04/10/202204/15 Patient has not had a bowel movement Continuing to follow surgery recommendations. Patient's pain has improved and states that she is no longer taking pain medication 04/16 Continue to monitor It following surgery's recommendations Sodium slightly low day at 129 will recheck in the morning (2) Generalized abdominal pain: Code(s): R10.84 - Generalized abdominal pain Status: Acute Assessment and Plan: Most likely secondary to SBO Pain management with analgesics (3) Nausea and vomiting: Qualifiers: Vomiting type: bilious vomiting Qualified Code(s): R11.14 - Bilious vomiting Code(s): R11.2 - Nausea with vomiting, unspecified Status: Acute Assessment and Plan: Most likely secondary to SBO Supportive care Zofran p.r.n. (4) Hypertension: Code(s): I10 - Essential (primary) hypertension Status: Chronic Assessment and Plan: Chronic, stable. Hold losartan while NPO PRN hydralazine SBP>160 or DBP>100 Plan CODE STATUS: FULL CODE Disposition: Inpatient. Discharge disposition: home Time Spent With Patient Time with patient: 25 - 35 minutes Subjective Date/time seen: 04/16/22 08:41 Interval history: 61-year-old female with history of hypertension and abdominal surgery. Patient states that her abdominal pain has been improving and she has not been needing to take her pain medication. Patient still has not had a bowel movement but has passed gas. Patient denies chest pain, shortness a breath, nausea, vomiting, abdominal bloating, and fever. Review of Systems Review of Systems: All systems reviewed & are unremarkable except as noted in HPI and below Exam Narrative: GENERAL: Comfortable, no acute distress HENMT: moist mucous membranes, ears clear bilaterally positive light reflex no cerumen noted, NG tube intact and patent with green/brown discharge EYES: EOM intact b/l NECK: no lymphadenopathy RESPIRATORY: clear to auscultation CARDIO: RRR GI: Surgical bandages over abdomen intact, diffuse tenderness, soft, bowel sounds present SKIN: no rashes EXTREMITIES: no edema, redness or tenderness Objective Data Vital Signs Vital Signs: Vital Signs - 24 hr 04/15/22 09:20 04/15/22 14:00 04/15/22 21:39 Temperature 98.3 F 99.2 F Pulse Rate 81 79 Respiratory Rate 18 20 Blood Pressure 157/77 H 162/70 H Pulse Oximetry 96 96 Oxygen Delivery Room Air 04/15/22 20:00 04/16/22 05:53 Temperature 98.2 F Pulse Rate 79 80 Respiratory Rate 20 16 Blood Pressure 150/68 H Pulse Oximetry 96 98 Oxygen Delivery Room Air Intake/Output Intake/Output: Intake & Output 04/13/22 04/14/22 04/15/22 04/16/22 23:59 23:59 23:59 23:59 Intake Total 2000 1250 2205 0 Output Total 2848 490 7119 4 Balance 300 900 755 -4 Meds/Results Medications: Active Medications Generic Name Dose Route Start Last Admin Trade Name Freq PRN Reason Stop Dose Admin Enoxaparin Sodium 40 mg 04/13/22 09:00 04/15/22 09:25 Enoxaparin 40 Mg/0.4 Ml Syringe SUB-Q 40 mg DAILY JULIETA Administration Famotidine 20 mg
[2022-04-16 08:54] LABS: Glucose Point of Care 142 mg/dl (65-105)
[2022-04-16] MEDS: ENOXAPARIN 40 MG/0.4 ML SYRINGE SUB-Q (09:06)
[2022-04-16] MEDS: FAT EMULSIONS IV 20% 250 ML 20.83 ML IVPB (11:02)
[2022-04-16] MEDS: AMINO ACIDS 5%/D15W/E-LYTES/CA 2,000 ML with MULTIVITAMINS-12 INJ VIAL 1 2.5 ML, MULTIV... 60 ML IV CONT (11:02)
[2022-04-16 11:53] LABS: Glucose Point of Care 135 mg/dl (65-105)
--- NOTE | 2022-04-16 11:53 | PM.PNGS ---
Progress Note: A&P Assessment and Plan (1) Small bowel obstruction: Code(s): K56.609 - Unspecified intestinal obstruction, unspecified as to partial versus complete obstruction Status: Acute Assessment and Plan: Await return of bowel function. ( may have slightly better bowel sounds today). Continue NG tube But will start clamping routine and see how she tolerates it. IV fluids Including TPN, as well as serial abdominal exam and labs. Doing well postop day # 3. With postop ileus (2) Protein-calorie malnutrition, moderate: Code(s): E44.0 - Moderate protein-calorie malnutrition Status: Acute Assessment and Plan: Continue TPN while patient NPO. ( just now beginning to try clamping routine on NG) --- TPN renewed (3) Hyponatremia: Code(s): E87.1 - Hypo-osmolality and hyponatremia Status: Acute Assessment and Plan: Sodium significantly down today. Will repeat BMP in a.m. tomorrow. Patient just started TPN yesterday so this may improve. Also will begin letting her have some liquids well NG clamped today. Subjective Subjective Date/Time Seen: 04/16/22 11:53 Post Op day: 3 ( Gradually improving, no BM yet) Patient reports: flatus (but fairly minimal) Interval history: Patient states she has been ambulating in the hallway. Is not nauseated. Does not have much abdominal pain today. Review of Systems Review of Systems: All systems reviewed & are unremarkable except as noted in HPI and below Constitutional: Constitutional: Reports as per HPI, Denies chills and Denies fever(s) Cardiovascular: Cardiovascular: Denies chest pain and Denies dyspnea Respiratory: Respiratory: Reports no additional respiratory complaints and Denies dyspnea Gastrointestinal: Gastrointestinal: Reports as per HPI and Denies bloating Psychiatric: Psychiatric: Denies anxiety Exam Const: General: comfortable and no acute distress; No confusion Orientation/consciousness: patient oriented x3 and No confusion GI: Inspection: non-distended GI Palp: Yes Soft to palpation, Yes Tenderness to palpation present (GI), No Guarding due to palpation present (GI) and No Rebound tenderness present Auscultation: normal bowel sounds Rectal Exam: deferred Other: dressing clean and dry will plan dressing change tomorrow. Neuro: General: patient oriented x3, no focal motor deficits and No confusion Extrem: General: no calf tenderness and no edema Psych: Affect: normal affect Insight: Good insight present (Psych) Judgement: Good judgement present (Psych) Objective Data Vital Signs Vital Signs: Vital Signs - 24 hr 04/15/22 14:00 04/15/22 21:39 04/15/22 20:00 Temperature 36.8 C 37.3 C Pulse Rate 81 79 79 Respiratory Rate 18 20 20 Blood Pressure 157/77 H 162/70 H Pulse Oximetry 96 96 96 Oxygen Delivery Room Air 04/16/22 05:53 Temperature 36.8 C Pulse Rate 80 Respiratory Rate 16 Blood Pressure 150/68 H Pulse Oximetry 98 Oxygen Delivery Intake/Output Intake/Output: Intake & Output 04/13/22 04/14/22 04/15/22 04/16/22 23:59 23:59 23:59 23:59 Intake Total 1999 1250 2455 2004 Output Total 9339 738 1692 4 Balance 079 120 2383 2000 Meds/Results Medications: Active Medications Generic Name Dose Route Start Last Admin Trade Name Freq PRN Reason Stop Dose Admin Bisacodyl 10 mg 04/16/22 11:48 Bisacodyl 10 Mg Suppository RECTAL 04/16/22 11:49 ONCE ONE Enoxaparin Sodium 40 mg 04/13/22 09:00 04/16/22 09:06 Enoxaparin 40 Mg/0.4 Ml Syringe SUB-Q 40 mg DAILY JULIETA Administration Famotidine 20 mg 04/12/22 21:00 04/16/22 09:06 Famotidine 20 Mg/2 Ml Vial IV PUSH 20 mg Q12HR JULIETA Administration Hydralazine HCl 10 mg 04/11/22 09:38 Hydralazine Hcl 20 Mg/Ml Vial IV PUSH Q6HR PRN Blood Pressure - High Hydromorphone HCl 1 mg 04/13/22 22:15 Hydromorphone Hcl Inj (*Crx) 1 Mg/Ml Syr IV PUSH Q3H PRN Pain Rated 7-1
[2022-04-16 13:37] VITALS: BP 155/66; PULSE 88; RESP 16; TEMP 36.5; O2SAT 98
[2022-04-16 17:01] LABS: Glucose Point of Care 151 mg/dl (65-105)
[2022-04-16] MEDS: BISACODYL 10 MG SUPPOSITORY RECTAL (18:50)
[2022-04-16 20:30] VITALS: PULSE 88; RESP 16; O2SAT 98
[2022-04-16 22:00] VITALS: BP 154/75; PULSE 85; RESP 18; TEMP 36.6; O2SAT 97
[2022-04-17 03:51] LABS: Creatinine Urine 75.1 mg/dL
[2022-04-17 03:55] LABS: Anion Gap 2 mmol/L (8-16); Blood Urea Nitrogen 12 mg/dL (7-17); Calcium 7.7 mg/dL (8.4-10.2); Carbon Dioxide 29 mmol/L (22-30); Chloride 102 mmol/L (98-107); Estimated CRCL calculation 103 ml/min; Estimated Glomerular Filt Rate > 60; Glucose 116 mg/dL (65-110); Phosphorus 4.1 mg/dL (2.5-4.5); Potassium 4.2 mmol/L (3.4-5.0); Sodium 133 mmol/L (137-145); Triglycerides 110 mg/dL (<150)
[2022-04-17 03:56] LABS: Sodium Urine Random 90 meq/L
[2022-04-17 06:00] VITALS: BP 131/56; PULSE 76; RESP 18; TEMP 36.6; O2SAT 100
[2022-04-17] MEDS: ENOXAPARIN 40 MG/0.4 ML SYRINGE SUB-Q (10:08)
[2022-04-17] MEDS: FAMOTIDINE 20 MG/2 ML VIAL IV PUSH (10:08)
[2022-04-17 12:03] LABS: Glucose Point of Care 142 mg/dl (65-105)
[2022-04-17 14:00] VITALS: BP 159/69; PULSE 88; RESP 16; TEMP 37.1; O2SAT 99
--- NOTE | 2022-04-17 15:29 | PM.PNGS ---
Progress Note: A&P Assessment and Plan (1) Small bowel obstruction: Code(s): K56.609 - Unspecified intestinal obstruction, unspecified as to partial versus complete obstruction Status: Acute Assessment and Plan: Patient has spontaneous bowel movement this morning NG tube was taken out last night because she was having difficulty tolerating it and because she had had a bowel movement. She tolerated clear liquids supper last night full liquid breakfast this morning and a soft diet for lunch. Home going instructions placed in the discharge instruction area. I discussed with the patient how to take care of her wound. She will also call the office to get appointment to see Dr. Wick for follow-up in 2 weeks. She will limit her lifting for the next 6-8 weeks to 25 lb. She knows a good exercise is walking. She knows to call the office if she begins running a fever having nausea and vomiting or having wound drainage problems. (2) Hyponatremia: Code(s): E87.1 - Hypo-osmolality and hyponatremia Status: Acute Assessment and Plan: Improved to 133 today. See hospitalist discharge summary. (3) Protein-calorie malnutrition, moderate: Code(s): E44.0 - Moderate protein-calorie malnutrition Status: Acute Assessment and Plan: Last bag of TPN allowed to infuse. If hospitalist feels the patient can be discharged PICC line can be removed and the patient can be discharged later today or tomorrow. Subjective Subjective Date/Time Seen: 04/17/22 08:29 Post Op day: 4 ( Patient had a bowel movement improving nicely. NG tube out last evening) Patient reports: no new complaints, feels better and pain is less Interval history: patient is sitting up in a chair watching TV when I entered the room. She tolerated a clear liquid diet and we will move her up to a full liquid diet for lunch. She had a bowel movement spontaneously this morning. Review of Systems Review of Systems: All systems reviewed & are unremarkable except as noted in HPI and below Constitutional: Constitutional: Reports as per HPI, Denies chills and Denies fever(s) Cardiovascular: Cardiovascular: Denies chest pain and Denies dyspnea Respiratory: Respiratory: Reports no additional respiratory complaints and Denies dyspnea Gastrointestinal: Gastrointestinal: Reports as per HPI and Denies bloating Psychiatric: Psychiatric: Denies anxiety Exam Const: General: comfortable and no acute distress; No confusion Orientation/consciousness: patient oriented x3 and No confusion GI: Inspection: non-distended GI Palp: Yes Soft to palpation, Yes Tenderness to palpation present (GI), No Guarding due to palpation present (GI) and No Rebound tenderness present Auscultation: normal bowel sounds Rectal Exam: deferred Other: Dressing change with the nurse today. There is no significant drainage. There is no surrounding erythema. [place] are intact. New 4 x 4 gauze and tape dressing applied. Neuro: General: patient oriented x3, no focal motor deficits and No confusion Extrem: General: no calf tenderness and no edema Psych: Affect: normal affect Insight: Good insight present (Psych) Judgement: Good judgement present (Psych) Objective Data Vital Signs Vital Signs: Vital Signs - 24 hr 04/16/22 20:30 04/16/22 22:00 04/17/22 06:00 Temperature 36.6 C 36.6 C Pulse Rate 88 85 76 Respiratory Rate 16 18 18 Blood Pressure 154/75 H 131/56 L Pulse Oximetry 98 97 100 Oxygen Delivery Room Air 04/17/22 10:00 Temperature Pulse Rate Respiratory Rate Blood Pressure Pulse Oximetry Oxygen Delivery Room Air Intake/Output Intake/Output: Intake & Output 04/14/22 04/15/22 04/16/22 04/17/22 23:59 23:59 23:59 23:59 Intake Total 1250 2455 2125 Output Total 350 1450 154 Balance 900 1005 1971 Meds/Results Medications: Active Medications Generic Name Dose Route Start Last Admin Trade Name Yordanq JESUS Reas
--- NOTE | 2022-04-17 15:48 | PM.DS ---
DS: Admitting Diagnosis Discharge Date 04/17/2022 Admitting Diagnosis Small-bowel obstruction DS: Discharge Diagnosis Discharge Diagnosis (1) Small bowel obstruction: Code(s): K56.609 - Unspecified intestinal obstruction, unspecified as to partial versus complete obstruction Status: Acute (2) Generalized abdominal pain: Code(s): R10.84 - Generalized abdominal pain Status: Acute (3) Nausea and vomiting: Qualifiers: Vomiting type: bilious vomiting Qualified Code(s): R11.14 - Bilious vomiting Code(s): R11.2 - Nausea with vomiting, unspecified Status: Acute (4) Hypertension: Code(s): I10 - Essential (primary) hypertension Status: Chronic DS: Summary Hospital Course Reason for hospitalization: Small-bowel obstruction Hospital Course: [age]-year-old female with history of hypertension, dyslipidemia, and recent abdominal surgery within the last year. Patient presented to the ED on 04/11/2022 with complaints of diffuse abdominal pain. Patient admitted to the hospital on 04/11/[address] abdomen and pelvis reported small bowel obstruction. General surgery consulted an NG-tube was placed for low intermittent suction. Patient put on bowel rest, IV fluids and supportive care. Patient given Zofran p.r.n. per general surgeon: Patient likely had significant adhesions due to previous sigmoidectomy for colovesical fistula repair approximately 1 year ago. Patient underwent small bowel follow-through and this revealed a complete obstruction. Patient underwent laparotomy with adhesiolysis on 04/13/2022. The next day patient underwent PICC line placement for TPN. Patient's NG tube removed on 04/15/2022 due to patient request and patient also had had a bowel movement. Patient advanced diet starting with clear liquids. Patient able to tolerate well and day of discharge advanced to soft diet. Patient cleared by surgery to be discharged. PICC line removed prior to discharge. Is advised she follow-up with Dr. Wick in 2 weeks. Time Spent with Patient Time attestation: Total time spent providing and/or coordinating discharge services: Exam Narrative: GENERAL: Comfortable, no acute distress HENMT: moist mucous membranes, ears clear bilaterally positive light reflex no cerumen noted, NG tube intact and patent with green/brown discharge EYES: EOM intact b/l NECK: no lymphadenopathy RESPIRATORY: clear to auscultation CARDIO: RRR GI: Surgical bandages over abdomen intact, diffuse tenderness, soft, bowel sounds present SKIN: no rashes EXTREMITIES: no edema, redness or tenderness DS: Data Data Completed and Pending Labs on day of discharge: Labs from last 24 hours 04/17/22 04/17/22 04/17/22 11:53 03:34 03:34 Sodium 133 L Potassium 4.2 Chloride 102 Carbon Dioxide 29 Anion Gap 2 L BUN 12 Creatinine 0.40 L Estim Creat Clear Calc 103 Estimated GFR > 60 Glucose 116 H POC Capillary Glucose 142 H Calcium 7.7 L Phosphorus 4.1 Triglycerides 110 Ur Random Sodium Urine Creatinine 04/17/22 04/16/22 03:17 16:48 Sodium Potassium Chloride Carbon Dioxide Anion Gap BUN Creatinine Estim Creat Clear Calc Estimated GFR Glucose POC Capillary Glucose 151 H Calcium Phosphorus Triglycerides Ur Random Sodium 90 Urine Creatinine 75.1 Discharge Plan Discharge Attending physician on discharge: Derik Foster Consulting providers: Kameron Wick Discharging Clinician: Hailey Esparza Patient Disposition: Home, Self-Care Activity: other - see discharge instructions Diet: low fiber Wound Care Instructions: follow printed instructions Discharge Instructions: general surgery discharge instructions: DISCHARGE INSTRUCTION SHEET FOR PATIENTS GOING HOME AFTER SMALL BOW
== END 2022-04-17 16:25 | disposition home or self-care (01) | DRG 336 ==
LOC: ANHED 04-11 00:28 → ANH3MEDSUR 04-11 01:14
PROVIDERS: Nurse Practitioner Family; Surgery; Admitting Provider Internal Medicine; Emergency Provider Emergency Medicine; PCP Internal Medicine; Visit Provider Internal Medicine Critical Care Medicine
PROC: 0DNH0ZZ Release Cecum, Open Approach (ICD-10-PCS; CPT 49000; principal; 2022-04-13 13:30)
DX: K56.52 Intestinal adhesions [bands] with complete obstruction (principal); E44.0 Moderate protein-calorie malnutrition; E87.5 Hyperkalemia; Z20.822 Contact with and (suspected) exposure to COVID-19; I10 Essential (primary) hypertension; R11.14 Bilious vomiting; Z79.899 Other long term (current) drug therapy; Z91.048 Other nonmedicinal substance allergy status; Z68.28 Body mass index [BMI] 28.0-28.9, adult
CPT/HCPCS: 36415; 36569; 74018; 74177; 74250; 80048; 80053; 81001; 82570; 82948; 83605; 83690; 83735; 84100; 84300; 84466; 84478; 85025; 85027; 85730; 86850; 86900; 86901; 87426; 96361; 96374; 96375; 96376; 99285; A9270; C1751; C9803; J0330; J1100; J1170; J1644; J1650; J1741; J2250; J2405; J2704; J2710; J3010; J3480; J7030; J7120; Q9967

== ENCOUNTER 2023-04-20 12:50 | Outpatient (CLI) | payer MEDICARE, SELFPAY ==
--- NOTE | ~2023-04-20 | DEXA_ITS ---
Bone Density Report Name: STACIE GENTILE Age: 72 Sex: Female Ethnicity: White Date of : 1950 Indication: osteopenia; height loss; hysterectomy; postmenopausal Referring Provider: CAROL, ELLYN Pedraza Study: Bone densitometry was performed. Exam Date: April 20, 2023 Accession number: [id number] Bone Density: Region BMD T-score Z-score Classification AP Spine(L1-L4) 0.899 -1.3 0.9 Osteopenia Femoral Neck (Left) 0.672 -1.6 0.3 Osteopenia Total Hip (Left) 0.810 -1.1 0.6 Osteopenia Femoral Neck (Right) 0.704 -1.3 0.6 Osteopenia Total Hip (Right) 0.766 -1.4 0.2 Osteopenia Total Hip Mean 0.788 -1.3 0.4 Osteopenia World Health Organization criteria for BMD impression classify patients as: Normal (T-score at or above -1.0), Osteopenia (T-score between -1.0 and -2.5), or Osteoporosis (T-score at or below -2.5). 10-year Fracture Risk(1): Major Osteoporotic Fracture 11% Hip Fracture 1.9% Reported Risk Factors: [place] (), Neck BMD=0.672, BMI=27.4 (1) FRAX(R) Version 3.08. Fracture probability calculated for an untreated patient. Fracture probability may be lower if the patient has received treatment. Previous Exams: Region Exam Age BMD T-score BMD Change BMD Change Date g/cm2 vs Baseline vs Previous AP Spine (L1-L4) 04/20/2023 72 0.899 -1.3 -0.097 (-9.8%) -0.007 (-0.8%) 08/26/2020 69 0.906 -1.3 -0.090 (-9.0%) -0.090 (-9.0%) 11/18/2011 60 0.996 -0.5 Total Hip(Left) 04/20/2023 72 0.810 -1.1 -0.155 (-16.1% -0.027 (-3.2%) 08/26/2020 69 0.838 -0.9 -0.128 (-13.3% -0.090 (-9.7%) 05/13/2016 65 0.928 -0.1 -0.038 (-3.9%) -0.038 (-3.9%) 11/18/2011 60 0.966 0.2 Total Hip(Right) 04/20/2023 72 0.766 -1.4 -0.202 (-20.9% -0.059 (-7.2%) 08/26/2020 69 0.825 -1.0 -0.143 (-14.7% -0.099 (-10.7% 05/13/2016 65 0.924 -0.1 -0.043 (-4.5%) -0.043 (-4.5%) 11/18/2011 60 0.967 0.2 *Denotes significance at 95% confidence level, LSC for AP Spine = 0.022 g/cm2, LSC for Total Hip = 0.027 g/cm2 # Denotes dissimilar scan types or analysis methods Clinical Information Provided by Patient: Has used the following medications: Vitamin D Has the following medical conditions: Hysterectomy Patient maximum height was 65.0 Menopause Age: 36 Drinks caffeinated beverages Onset of menses at age 14 Number of children 0 Impression: The patient has low bone mass, based on the Left
--- NOTE | ~2023-04-20 | MM_ITS ---
EXAMINATION: MM screening angelique BI w chang HISTORY: Screening TECHNIQUE: Craniocaudal and mediolateral oblique 3-D tomosynthesis images were obtained and synthetic 2-D images were generated. CAD analysis was submitted and interpreted. COMPARISON: Comparison to multiple prior studies sequentially, with oldest reviewed study dated 12/05. BREAST PARENCHYMAL COMPOSITION: There are scattered areas of fibroglandular density. FINDINGS: There is no evidence of suspicious mass, calcification, or architectural distortion to sugg est malignancy in either breast. There has been no suspicious interval change. IMPRESSION: 1. No mammographic evidence of malignancy. 2. Recommend routine screening mammography in one year. BI-RADS Category 1: Negative Reviewed, dictated and finalized at location A. D LEAD
== END 2023-04-20 12:51 | disposition home or self-care (01) ==
PROVIDERS: PCP Internal Medicine; Visit Provider Internal Medicine
DX: Z12.31 Encounter for screening mammogram for malignant neoplasm of breast (principal); M81.0 Age-related osteoporosis without current pathological fracture; M85.88 Other specified disorders of bone density and structure, other site; M85.852 Other specified disorders of bone density and structure, left thigh; M85.851 Other specified disorders of bone density and structure, right thigh
CPT/HCPCS: 77063; 77067; 77080

== ENCOUNTER 2023-06-12 11:42 | Observation (INO) | payer MEDICARE, SELFPAY ==
[2023-06-12] VITALS (11 sets, daily range): BP systolic 141–151; BP diastolic 53–79; PULSE 66–98; RESP 10–20; TEMP 36.1–36.6; O2SAT 98–100; BMI 26.1
--- NOTE | ~2023-06-12 | XR_ITS ---
XR chest 1V portable DATE: 06/12/2023 14:22 INDICATION: Near syncope. Weakness. Nausea. TECHNIQUE: Portable upright AP chest on June 12, 2023 at 1420 hours COMPARISON: April 14, 2022 portable AP chest FINDINGS: Normal heart size. Aortic arch calcification. No hilar or mediastinal enlargement. No pulmonary infiltrate or consolidation, pleural effusion or pulmonary vascular congestion or pneumo thorax is evident. Diffuse osteopenia. Degenerative spurring of the thoracic spine. Status post cholecystectomy. IMPRESSION: No active cardiopulmonary disease Aortic atherosclerosis Osteopenia Status post cholecystectomy Reviewed, dictated and finalized at location B. OMER ENGAGEMENT ANALYST
--- NOTE | ~2023-06-12 | US_ITS ---
EXAMINATION: US abdomen limited DATE: 06/12/2023 19:55 INDICATION: Epigastric pain, elevated bilirubin . TECHNIQUE: Multiple grayscale and Doppler ultrasound images of limited portions of the abdomen were o btained. COMPARISON: CT abdomen 04/10/2022. FINDINGS: Limited visualization of the pancreas. Heterogeneous liver parenchyma with the suggestion o f surface nodularity. Normal hepatopetal flow in the main portal vein. Status post cholecystectomy. T he common bile duct measures 4 mm. The right kidney measures 10.6 cm in length, no hydronephrosis. Sm all right pleural effusion. IMPRESSION: Possible cirrhosis. Normal common bile duct. Reviewed, dictated and finalized at location K. [employer]
--- NOTE | ~2023-06-12 | US_ITS ---
EXAMINATION: US carotid duplex BI DATE: 06/12/2023 19:44 INDICATION: Lightheadedness. TECHNIQUE: Grayscale, color Doppler, and pulsed Doppler images of the cervical carotid arteries were obtained. The degree of vessel stenosis is placed in one of the following categories: normal, <50%, 5 0-69%, >=70% but less than near-occlusion, near-occlusion, or total occlusion. Note that percent sten osis relative to normal distal artery lumen diameter is indirectly measured from velocity measurement s as described by Quinten, et al. Radiology 2003; 229:340-346. COMPARISON: None. FINDINGS: RIGHT: The right common carotid artery (CCA) peak systolic velocity (PSV) is 82 cm/s. The right internal car otid artery (ICA) PSV is 119 cm/s. The right ICA end-diastolic velocity (EDV) is 31 cm/s. The right I CA/CCA PSV ratio is 1.4. Grayscale and color Doppler images yield an estimate of <50% diameter reduct ion from plaque in the ICA. There is antegrade flow in the right vertebral artery. LEFT: The left CCA PSV is 100 cm/s. The left ICA PSV is 122 cm/s. The left ICA EDV is 27 cm/s. The left ICA /CCA PSV ratio is 1.2. Grayscale and color Doppler images yield an estimate of <50% diameter reductio n from plaque in the ICA. There is antegrade flow in the left vertebral artery. IMPRESSION: 1. <50% stenosis in the right internal carotid artery. 2. <50% stenosis in the left internal carotid artery. Reviewed, dictated and finalized at location A. CRIPTION CLERK LENSES
--- NOTE | 2023-06-12 13:00 | ED.GENADULT ---
HPI - General Adult General Chief complaint: Dizziness <Gibran Billingsley PA-C - Last Filed: 06/12/23 13:02> Stated complaint: DIZZINESS,NAUSEA X2D <Gibran Billingsley PA-C - Last Filed: 06/12/23 13:02> Time Seen by Provider: 06/12/23 13:00 <Gibran Billingsley PA-C - Last Filed: 06/12/23 13:02> Focused HPI: This is a 72F with PMHx HLD, HTN who presents to the ED with chief complaint of intermittent lightheadedness x 2 days. Reports prodrome of feeling nauseous and having some epigastric pain. Reports some mid back pain as well. Denies fevers, chills, vomiting, urinary symptoms, syncope, numbness, weakness. GENERAL: Well-appearing, well-nourished, and in no acute distress. HEAD: Normocephalic, atraumatic. CHEST: Clear to auscultation. ?No respiratory distress. HEART: Regular rate and rhythm.? NEURO: ?Alert and oriented x3. Patient screened in triage and initial orders placed.? ?Additional care and disposition to be based upon?diagnostic testing and treatment. <Gibran Billingsley PA-C - Last Filed: 06/12/23 13:02> History of Present Illness HPI narrative: 72-year-old with a history of hiatal hernia presents to the ER with the complaints of sudden onset of lightheadedness, She states she had sense of cold her right side of her chest which radiated to her right arm associated with marked dizziness. patient states she had a similar episode 2 days ago which lasted for few minutes , had another episode this morning while she was trying to drive to doctors office. By the time she came to the ER her symptoms have much resolved. <Gunnar Noble MD - Last Filed: 06/12/23 17:13> Related Data Home medications: Home Medications Medication Instructions Recorded Confirmed atorvastatin 10 mg tablet 10 mg PO HS 04/10/22 05/17/22 losartan 100 mg tablet 100 mg PO DAILY 04/10/22 05/17/22 cholecalciferol (vitamin D3) 125 125 mcg PO DAILY 04/11/22 05/17/22 mcg (5,000 unit) capsule (Dialyvite Vitamin D) vit C 250 mg-vit E 90 mg-zinc 40 1 tablet PO DAILY 04/11/22 05/17/22 mg-copper 1 [id number] capsule (PreserVision AREDS-2) <Gibran Billingsley PA-C - Last Filed: 06/12/23 13:02> Allergies/adverse reactions: Allergies Allergy/AdvReac Type Severity Reaction Status Date / Time adhesive Allergy Unknown RASH Verified 05/16/22 08:42 doxycycline Allergy Unknown Cramping Verified 05/16/22 08:42 of the Muscles <Gibran Billingsley PA-C - Last Filed: 06/12/23 13:02> Review of Systems Constitutional: Constitutional: Reports no additional constitutional complaints <Gunnar Noble MD - Last Filed: 06/12/23 17:13> Eyes: Eyes: Reports no additional eye complaints <Gunnar Noble MD - Last Filed: 06/12/23 17:13> ENT: Reports system reviewed and no additional complaints, except as documented <Gunnar Noble MD - Last Filed: 06/12/23 17:13> Cardiovascular: Cardiovascular: Reports as per HPI and Reports no additional cardiovascular complaints <Gunnar Noble MD - Last Filed: 06/12/23 17:13> Respiratory: Respiratory: Reports no additional respiratory complaints <Gunnar Noble MD - Last Filed: 06/12/23 17:13> Gastrointestinal: Gastrointestinal: Reports no additional gastrointestinal complaints <Gunnar Noble MD - Last Filed: 06/12/23 17:13> Musculoskeletal: Musculoskeletal: Reports no additional musculoskeletal complaints <Gunnar Noble MD - Last Filed: 06/12/23 17:13> Neurologic: Reports as per HPI <Gunnar Noble MD - Last Filed: 06/12/23 17:13> Psychiatric: Psychiatric: Reports no additional psychiatric complaints <Gunnar Noble MD - Last Filed: 06/12/23 17:13> PMFSH Past Medical History Medical History: Medical History Hiatal hernia Recurrent Hyperlipidemia Hypertension <Gibran Billingsley PA-C - Last Filed: 06/12/23 13:02> Surgical History Surgical History: Surgical History (Reviewed 05/16/22
--- NOTE | 2023-06-12 13:02 | ECG_ITS ---
Measurements Intervals [place] Rate: 75 P: 69 ME: 142 QRS: 27 QRSD: 85 T: 49 QT: 373 QTc: 417 Interpretive Statements SINUS RHYTHM WITH SINUS ARRHYTHMIA VOLTAGE CRITERIA FOR LVH [MEETS CRITERIA IN ONE OF: R(aVL), S(V1), R(V5), R(V5/V6)+S(V1)] ABNORMAL ECG NO PREVIOUS ECG AVAILABLE FOR COMPARISON Electronically Signed On 06-12-2023 16:59:22 DEVELOPING MACHINE OPERATOR by Per Vázquez M.D.
[2023-06-12 13:33] LABS: Basophils Percent Auto 0.3 % (0.2-1.2); Eosinophils Percent Auto 0.5 % (0-4.4); Hematocrit 45.6 % (37.0-47.0); Immature Granulocyte Absolute 0.03 K/mm3 (0.00-0.031); Immature Granulocyte Percent A 0.3 % (0-0.5); Lymphocytes Absolute Auto 1.55 K/mm3 (0.9-3.2); Lymphocytes Percent Auto 17.6 % (18.3-44.2); Mean Corpuscular HGB Conc 32.9 g/dl (32-36); Mean Corpuscular Hemoglobin 29.6 pg (26-34); Mean Corpuscular Volume 89.9 fl (80-100); Mean Platelet Volume 10.8 fl (7.4-10.4); Monocytes Absolute Auto 0.4 K/mm3 (0.1-0.6); Neutrophils Absolute Auto 6.7 K/mm3 (1.3-6.7); Neutrophils Percent Auto 76.3 % (45.5-73.1); Platelet Count Result 189 k/mm3 (150-375); Red Blood Count 5.07 M/mm3 (4.2-5.4); Red Cell Distribution Width 12.7 % (11.5-14.5); White Blood Count 8.8 K/mm3 (4.5-10.0)
[2023-06-12 13:37] LABS: Appearance Urine Cloudy (Clear); Bacteria Urine None Seen /hpf; Bilirubin Urine Negative (Negative); Blood Urine Negative (Negative); Color Urine Yellow (Yellow); Glucose Urine UA Negative (Negative); Ketones Urine 1+ mg/dL (Negative); Leukocyte Esterase Ur Negative LEU/UL (Negative); Nitrate Urine Negative (Negative); Non Pathogenic Casts 0-2; Protein Urine Negative (Negative); RBC Urine 0-2 /hpf (0-2); Specific Grav Ur 1.009 (1.001-1.035); Squamous Epithelial Cell Urine None seen /hpf (Few); Urobilinogen Urine 0.2 mg/dL (<2.0); WBC Urine 0-5 /hpf; pH Urine 5.5 (5.0-9.0)
[2023-06-12 13:44] LABS: Add Urine Microscopic? YES
[2023-06-12 14:05] LABS: Troponin I < 0.012 ng/mL (0.000-0.034)
[2023-06-12 14:56] LABS: Alanine Aminotransferase 16 U/L (6-35); Albumin Level 4.6 g/dL (3.5-5.1); Alkaline Phosphatase 74 U/L (38-126); Anion Gap 10 mmol/L (8-16); Aspartate Amino Transferase 39 U/L (14-36); Bilirubin,Total 1.4 mg/dL (0.2-1.3); Blood Urea Nitrogen 20 mg/dL (7-17); Calcium 9.8 mg/dL (8.4-10.2); Carbon Dioxide 22 mmol/L (22-30); Chloride 103 mmol/L (98-107); Estimated CRCL calculation 61 ml/min; Estimated Glomerular Filt Rate > 60; Glucose 97 mg/dL (65-110); Potassium 4.9 mmol/L (3.4-5.0); Sodium 135 mmol/L (137-145)
--- NOTE | 2023-06-12 18:13 | PM.IMHP ---
H&P: HPI History of Present Illness Date/Time: 06/12/23 18:13 Chief Complaint: Palpitation, lightheadedness Narrative: ? 72-year-old with a history of multiple comorbidities including hyperlipidemia, hypertension, hiatal hernia presents to the ER with chief complaining of palpitation, lightheadedness. Patient has been having intermittent code feeling of bilateral arms, and back pain today. And when patient was driving, patient had episode of lightheadedness, associated with nausea, palpitation. Patient denies loss of consciousness, vision change, focal weakness. Patient has had a hernia, patient also has intermittent acid reflux. Patient denies fever, chills, cough, diarrhea, dysuria. Patient came to ED for evaluation. Upon arrival in ED, patient was afebrile, blood pressure stable, EKG showed sinus rhythm no specific ST T-wave changes, elevated BUN creatinine ratio 20/0.6, margin have bilirubin 1.4. Chest x-ray shows no acute cardiopulmonary issues. We admit patient for further region and management Review of Systems Review of Systems: ROS negative except above PMFSH Past Medical History Medical History Hiatal hernia Recurrent Hyperlipidemia Hypertension Surgical History Surgical History Colovesical fistula Sigmoidectomy and bladder closure performed in [place] February 2021 Paraesophageal hiatal hernia Repair laparoscopically 14 or 15 years ago at outside hospital Small bowel obstruction due to adhesions Adhesiolysis on 04/13/22 Family History Family History Mother Family history of chronic obstructive pulmonary disease Family history of malignant neoplasm of urinary bladder Patient's mother is Social History Social History Smoking status: Never smoker Alcohol intake: never Substance use: never Substance use type: does not use Lack of Transportation: No Lack of Food: Never True Current Housing: I Have Housing Concerned About Future Housing: No Difficulty Paying Gas/Electric Bills: No Difficulty Paying for Meds: No Currently Unemployed: No Education: Bachelor's Degree Difficulty w/ Childcare or Family Care: No Living arrangements: with family Gender identity (if verbalized by the patient): Female Spiritual care concerns: No Meds Home Medications and Allergies Home Medications Medication Instructions Recorded Confirmed Type atorvastatin 10 mg tablet 10 mg PO HS 04/10/22 05/17/22 History losartan 100 mg tablet 100 mg PO DAILY 04/10/22 05/17/22 History cholecalciferol (vitamin D3) 125 125 mcg PO DAILY 04/11/22 05/17/22 History mcg (5,000 unit) capsule (Dialyvite Vitamin D) vit C 250 mg-vit E 90 mg-zinc 40 1 tablet PO DAILY 04/11/22 05/17/22 History mg-copper 1 [id number] capsule (PreserVision AREDS-2) Allergies Allergy/AdvReac Type Severity Reaction Status Date / Time adhesive Allergy Unknown RASH Verified 05/16/22 08:42 doxycycline Allergy Unknown Cramping Verified 05/16/22 08:42 of the Muscles Vital Signs Vital Signs - 24 hr 06/12/23 11:46 06/12/23 14:28 06/12/23 14:28 Temperature 97.9 F Pulse Rate 98 80 78 Respiratory Rate 16 Blood Pressure 148/79 H 150/57 H 151/73 H Pulse Oximetry 99 06/12/23 14:29 06/12/23 15:50 06/12/23 16:00 Temperature Pulse Rate 89 86 81 Respiratory Rate 16 10 L Blood Pressure Pulse Oximetry 100 100 06/12/23 16:01 06/12/23 17:39 06/12/23 17:45 Temperature Pulse Rate 82 77 78 Respiratory Rate 11 L 12 12 Blood Pressure 148/53 H Pulse Oximetry 100 98 98 06/12/23 17:46 Temperature Pulse Rate 76 Respiratory Rate 12 Blood Pressure 146/56 H Pulse Oximetry 100 Exam Narrative: GENERAL: Plea
--- NOTE | 2023-06-12 18:17 | ADMGEN ---
This patient, Annette Mckeon, was admitted to Medical Room 349-01. Patient/family oriented to hospital policies and general routines including ID bracelet, bed and alarms, visiting hours, pain management, procedures, bathroom and other care routines, personal items, smoking policy, room service/diet, and visiting hours. Information on how to activate the Rapid Response Team has been discussed. Patient/Family are encouraged to report perceived risks to care and to ask questions if they do not understand what they are told or what they should do.
[2023-06-12 21:17] LABS: Troponin I < 0.012 ng/mL (0.000-0.034)
[2023-06-13] VITALS (7 sets, daily range): BP systolic 139–148; BP diastolic 53–57; PULSE 60–87; RESP 18–20; TEMP 36.5–36.8; O2SAT 97–100
[2023-06-13 00:01] LABS: Troponin I < 0.012 ng/mL (0.000-0.034)
--- NOTE | 2023-06-13 06:00 | ECHO_ITS ---
Patient Info Name: Annette Mckeon Age: 72 years : 1950 Gender: Female Accession #: $[id number] Ht: 63 in Wt: 149 lbs BSA: 1.75 m? BP: 141 / 54 mmHg HR: 60 bpm Heart Rhythm: Sinus Rhythm Exam Date: 06/13/2023 10:38 AM Admit Date: 06/12/2023 Exam Location: Echo Lab Patient Status: Outpatient Exam Type: CA echo dop color flow w con Technical Quality: Good Trace Clerk: Buffy Romo RDCS Study Info Indications Code Description dizziness Procedure(s) Complete two-dimensional, color flow and Doppler transthoracic echocardiogram is performed with contrast to opacify the left ventricle and to improve the deliniation of the left ventricle endocardial borders. Contrast/Agitated Saline Contrast/Ag. Saline Amount Administered By Existing IV Access IV Access Condition New IV Access Site Condition Summary 1. Left ventricular chamber dimension is normal. 2. Left ventricular systolic function is hyperdynamic, estimated at >70%. 3. The left ventricular diastolic function is grade I diastolic dysfunction. 4. Right ventricular systolic function is normal. 5. Left atrial chamber dimension is moderately enlarged. 6. There is trivial pericardial effusion. 7. No significant valvular disease. Left Ventricle Left ventricular chamber dimension is normal. Left ventricular systolic function is hyperdynamic, estimated at >70%. The left ventricular diastolic function is grade I diastolic dysfunction. Right Ventricle Right ventricular chamber dimension is normal. Right ventricular systolic function is normal. Left Atria Left atrial chamber dimension is moderately enlarged. Right Atria Right atrial chamber dimension is normal. Atrial Septum Intact interatrial septum visualized by color flow imaging. Aortic Valve The aortic valve is probable trileaflet. There is no aortic valve stenosis. There is no aortic valve regurgitation. There is mild aortic valve calcification. Mitral Valve There is trace mitral valve regurgitation. Tricuspid Valve There is trace tricuspid valve regurgitation. Pulmonic Valve The pulmonic valve is not well visualized. Aorta The aortic root size at the sinus of Valsalva is normal. Inferior Vena Cava Normal inferior vena cava with >50% collapse upon inspiration consistent with normal right atrial pressure, 3 mmHg. Pericardium/Pleural There is trivial pericardial effusion. Ventricles Name Value Normal Name Value Normal Definity 2.00 ml Chun Romoa RDCS Yes patent with no signs of infiltration LV Dimensions 2D/MM IVS Diastolic Thickness (2D) 1.06 cm 0.60-1.00 LVOT Diameter 1.79 cm LVID Diastole (2D) 2.88 cm 3.80-5.20 LV Mass (2D Cubed) 87.55 g 67.00-162.00 LVIW Diastolic Thickness (2D) 1.10 cm 0.60-0.90 LV Mass Index (2D Cubed) 0.01 g/cm2 0.00-0.01 LVID Systole (2D) 1.86 cm 2.20-3.50 Relative Wall Thickness (2D) 0.77 LV Fractional Shortening/Ejection Fraction 2D/MM LV Fractional Shortening (2D) 36 % 27-45 LV Diastolic Volume Index (BP MOD) 0.03 l/m? 0.03-0.06 LV EF (2D Teicholz) 67 % 54-74 LV Systolic Volume (BP MOD) 10.93 ml 14.00-42.00 LV Diastolic Volume (4C MOD) 63.15 ml LV Systolic Volume Index (BP MOD) 0.01 l/m? 0.01-0.02 LV EF (4C MOD) 86 % LV EF (BP MOD) 79 % 54-74 LV Diastolic Volume (2C MOD) 39.59 ml LV Diastolic Length (4C) 6.99 cm LV EF (2C MOD) 73 % LV Systolic Length (4C) 4.51 cm LV Diastolic Volume (BP MOD) 51.01 ml 46.00-106.00 LV Stroke Volume (4C MOD) 54.13 ml Atria Name Value Normal Name Value Normal LA Dimensions LA Dimension (MM) 4.68 cm 2.70-3.80 LA Volume (BP A-L) 77.00 ml LA Volume (4C A-L) 68.68 ml RA Dimensions RA Area (4C) 9.77 cm? .18.00 Left Ventricular Outflow Tract Name Value Normal Name Value Normal LVOT 2D LVOT Diameter 1.79 cm LVOT Doppler
[2023-06-13] MEDS: PANTOPRAZOLE 40 MG TABLET PO (08:45)
[2023-06-13] MEDS: LOSARTAN POTASSIUM 100 MG TABLET PO (08:45)
[2023-06-13] MEDS: ATORVASTATIN 10 MG TABLET PO (08:45)
[2023-06-13] MEDS: ASPIRIN 81 MG CHEWABLE TABLET PO (08:45)
--- NOTE | 2023-06-13 09:36 | PM.CNCAR ---
Assessment and Plan Assessment and plan (1) Dizziness: Code(s): R42 - Dizziness and giddiness Status: Acute Assessment and Plan: Echocardiogram already ordered. Will have patient wear an event monitor for 2 weeks upon time of discharge (order already placed). Recommend to check orthostatic vital signs. Continue to monitor on tele while patient remains in the hospital. From my standpoint, patient can be discharged home after echocardiogram is done. History of Present Illness History of Present Illness Consult date/time: 06/13/23 09:36 Requesting physician: Georges Smith MD Consult reason: Other (Lightheadedness/dizziness) Reason For Visit: Dizziness Narrative: We are consulted for lightheadedness/dizziness. 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 She drank some cold water, which seemed to help. She had another recurrence on Monday. At that time, she felt coldness in her right arm and upper back. No clear palpitations or fluttering sensation in her heart. Reports intermittent pain in her epigastric region from her hiatal hernia. She feels much better this morning. No prior cardiac history. Reports family history of heart disease in her two brothers. EKG with sinus rhythm voltage criteria for LVH, however, no ischemic changes. Troponins are negative. Telemetry thus far without any arrhythmias. Review of Systems Review of Systems: All systems reviewed & are unremarkable except as noted in HPI and below (HPI) [facility] Past Medical History Medical History Hiatal hernia Recurrent Hyperlipidemia Hypertension Surgical History Surgical History Colovesical fistula Sigmoidectomy and bladder closure performed in [place] February 2021 Paraesophageal hiatal hernia Repair laparoscopically 14 or 15 years ago at outside hospital Small bowel obstruction due to adhesions Adhesiolysis on 04/13/22 Family History Family History Mother Family history of chronic obstructive pulmonary disease Family history of malignant neoplasm of urinary bladder Patient's mother is Social History Social History Smoking status: Never smoker Alcohol intake: never Substance use: never Substance use type: does not use Do You Feel Safe in your Home?: Yes Lack of Transportation: No Lack of Food: Never True Current Housing: I Have Housing Concerned About Future Housing: No Difficulty Paying Gas/Electric Bills: No Difficulty Paying for Meds: No Currently Unemployed: No Education: Bachelor's Degree Difficulty w/ Childcare or Family Care: No Living arrangements: with family Gender identity (if verbalized by the patient): Female Spiritual care concerns: No Meds Home Medications and Allergies Home Medications Medication Instructions Recorded Confirmed Type atorvastatin 10 mg tablet 10 mg PO QAM 04/10/22 06/12/23 History losartan 100 mg tablet 100 mg PO QAM 04/10/22 06/12/23 History cholecalciferol (vitamin D3) 125 125 mcg PO BID 04/11/22 06/12/23 History mcg (5,000 unit) capsule (Dialyvite Vitamin D) vit C 250 mg-vit E 90 mg-zinc 40 1 tablet PO BID 04/11/22 06/12/23 History mg-copper 1 [id number] capsule (PreserVision AREDS-2) Allergies Allergy/AdvReac Type Severity Reaction Status Date / Time adhesive Allergy Unknown RASH Verified 05/16/22 08:42 doxycycline Allergy Unknown Cramping Verified 05/16/22 08:42 of the Muscles Vital Signs Vital Signs - 24 hr 06/12/23 11:46 06/12/23 14:28 06/12/23 14:28 Temperature 36.6 C Pulse Rate 98 80 78 Respiratory Rate 16 Blood Pressure 148/79 H 150/57 H 151/73 H Pulse Oximetry 99 Oxygen D
[2023-06-13] MEDS: PERFLUTREN LIPID MICROSPHERES 1.5 ML VIAL DILUTED TO 10 ML TOTAL VOLUME IV PUSH (11:08)
--- NOTE | 2023-06-13 11:57 | IVDEFINITY ---
Prior to administration of IV Definity the patient was educated on the risks and benefits of the imaging enhancing agent including potential adverse side effects. The patient verbalized understanding. Allergies were verified. No exclusion criteria were identified and at least one of the following inclusion criteria were met: 1) physician request, 2) patient technically difficult to image (per the [place] [employer] Echocardi[employer] guidelines of two or more segments not discernable within the apical view), or 3) questionable left ventricular function. ?
--- NOTE | 2023-06-13 13:26 | PM.DS ---
DS: Admitting Diagnosis Discharge Date 06/13/2023 Admitting Diagnosis Dehydration DS: Discharge Diagnosis Discharge Diagnosis (1) GERD (gastroesophageal reflux disease): Qualifiers: Esophagitis presence: without esophagitis Qualified Code(s): K21.9 - Gastro-esophageal reflux disease without esophagitis Code(s): K21.9 - Gastro-esophageal reflux disease without esophagitis Status: Acute Assessment and Plan: Patient has history of hiatal hernia, acid reflux -continue neuro Protonix 40 mg daily (2) Dehydration: Code(s): E86.0 - Dehydration Status: Acute Assessment and Plan: Suspect secondary due to poor oral intake (3) Dizziness: Code(s): R42 - Dizziness and giddiness Status: Acute Assessment and Plan: Lightheadedness and palpitation EKG shows sinus rhythm no CP denied changes -cardiology consult appreciate recommendation and plan -echo pending, ok to discharge per cardiology (4) Hyponatremia: Code(s): E87.1 - Hypo-osmolality and hyponatremia Status: Acute Assessment and Plan: chronic pt has hx of Na= 129 in 2021, -monitor free water DS: Summary Hospital Course Reason for hospitalization: 72-year-old with a history of multiple comorbidities including hyperlipidemia, hypertension, hiatal hernia presents to the ER with chief complaining of palpitation, lightheadedness. Hospital Course: Patient has been having intermittent code feeling of bilateral arms, and back pain today.? And when patient was driving, patient had episode of lightheadedness, associated with nausea, palpitation.? Patient denies loss of consciousness, vision change, focal weakness.? Patient has had a hernia, patient also has intermittent acid reflux.? Patient denies fever, chills, cough, diarrhea, dysuria.? Patient came to ED for evaluation.? Upon arrival in ED, patient was afebrile, blood pressure stable, EKG showed sinus rhythm no specific ST T-wave changes, elevated BUN creatinine ratio 20/0.6, margin have bilirubin 1.4.? Chest x-ray shows no acute cardiopulmonary issues.? We admit patient for further region and management Interval Hx:06/13/2023: pt seen this morning she is resting in bed with eyes open, she denies any chest pain, dizziness, nausea vomiting fever chills. She denies any overnight events Cardiology consult please see HPI below Assessment and Plan Assessment and plan (1) Dizziness: ?Code(s): R42 - Dizziness and giddiness ?Status:?Acute ?Assessment and Plan: Echocardiogram already ordered. Will have patient wear an event monitor for 2 weeks upon time of discharge (order already placed). Recommend to check orthostatic vital signs. Continue to monitor on tele while patient remains in the hospital. From my standpoint, patient can be discharged home after echocardiogram is done. History of Present Illness History of Present Illness Consult date/time: 06/13/23? 09:36 Requesting physician: Georges Smith MD Consult reason: Other (Lightheadedness/dizziness) Reason For Visit: Dizziness Narrative: We are consulted for lightheadedness/dizziness. 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 She drank some cold water, which seemed to help. She had another recurrence on Monday. At that time, she felt coldness in her right arm and upper back. No clear palpitations or fluttering sensation in her heart. Reports intermittent pain in her epigastric region from her hiatal hernia. She feels much better this morning. No prior cardiac history. Reports family history of heart disease in her two brothers. EKG with sinus rhythm voltage criteria for LVH, however, no ischemic changes. Troponins are negative. Telemetry thus far without any arrhythmias. <end of report> Status at Discharge Functional status at discharge: independent ambulation Overall status at discharge: patient
== END 2023-06-13 16:00 | disposition home or self-care (01) ==
LOC: ANHED 17:13 → ANH3MED 18:00
PROVIDERS: Physician Assistant; Admitting Provider Hospitalist; Emergency Provider Family Medicine; PCP Internal Medicine; Visit Provider Hospitalist
DX: R42 Dizziness and giddiness (principal); K21.9 Gastro-esophageal reflux disease without esophagitis; E86.0 Dehydration; E87.1 Hypo-osmolality and hyponatremia; I11.9 Hypertensive heart disease without heart failure; K44.9 Diaphragmatic hernia without obstruction or gangrene; Z20.822 Contact with and (suspected) exposure to COVID-19; E80.6 Other disorders of bilirubin metabolism; E78.5 Hyperlipidemia, unspecified; I35.8 Other nonrheumatic aortic valve disorders; M85.80 Other specified disorders of bone density and structure, unspecified site; R94.31 Abnormal electrocardiogram [ECG] [EKG]; Z90.49 Acquired absence of other specified parts of digestive tract; Z79.899 Other long term (current) drug therapy
CPT/HCPCS: 36415; 71045; 76705; 80053; 81001; 84484; 85025; 93005; 93880; 96374; 99285; A9270; C8929; G0378; Q9957

== ENCOUNTER 2023-09-28 14:09 | Outpatient (CLI) | payer MEDICARE, SELFPAY ==
--- NOTE | ~2023-09-28 | XR_ITS ---
XR knee LT min 4V DATE: 09/28/2023 14:41 INDICATION: Left knee pain TECHNIQUE: [place] and weightbearing AP, PA and lateral views COMPARISON: None FINDINGS: There is osteopenia. There is mild to moderate loss of height of medial compartment joint space. There is minimal periarti cular spurring of the medial and lateral femoral condyles. No radiopaque intra-articular loose body o r chondrocalcinosis. No fracture, dislocation, periosteal reaction or bone destruction or joint effus ion. IMPRESSION: Mild osteoarthritis Osteopenia Reviewed, dictated and finalized at location B.
== END 2023-09-28 14:10 | disposition home or self-care (01) ==
LOC: ANHIMG 14:14
PROVIDERS: PCP Internal Medicine; Visit Provider Internal Medicine
DX: M17.12 Unilateral primary osteoarthritis, left knee (principal); M85.862 Other specified disorders of bone density and structure, left lower leg
CPT/HCPCS: 73564

== ENCOUNTER → 2024-07-02 12:18 | Outpatient (REF) | payer MEDICARE, SELFPAY | LOC: ANHLAB 12:18 | PROVIDERS: PCP Internal Medicine; Visit Provider Plastic Surgery | DX: C44.91 Basal cell carcinoma of skin, unspecified (principal) | CPT/HCPCS: 88305 ==

== ENCOUNTER 2024-11-26 07:42 | Outpatient (CLI) | payer MEDICARE, SELFPAY ==
--- NOTE | ~2024-11-26 | MM_ITS ---
EXAMINATION: MM screening angelique BI w chang HISTORY: Screening TECHNIQUE: Craniocaudal and mediolateral oblique 3-D tomosynthesis images were obtained and synthetic 2-D images were generated. CAD analysis was submitted and interpreted. COMPARISON: Comparison to multiple prior studies sequentially, with oldest reviewed study dated 05/27. BREAST PARENCHYMAL COMPOSITION: There are scattered areas of fibroglandular density. FINDINGS: There is no evidence of suspicious mass, calcification, or architectural distortion to sug gest malignancy in either breast. IMPRESSION: 1. No mammographic evidence of malignancy. 2. Recommend routine screening mammography in one year. BI-RADS Category 1: Negative Reviewed, dictated and finalized at location B.
== END 2024-11-26 07:43 | disposition home or self-care (01) ==
PROVIDERS: PCP Internal Medicine; Visit Provider Internal Medicine
DX: Z12.31 Encounter for screening mammogram for malignant neoplasm of breast (principal)
CPT/HCPCS: 77063; 77067

== ENCOUNTER 2024-12-08 08:14 | Observation (INO) | payer MEDICARE, SELFPAY ==
[2024-12-08] VITALS (20 sets, daily range): BP systolic 125–184; BP diastolic 45–88; PULSE 56–153; RESP 11–21; TEMP 36.7–36.9; O2SAT 96–100; BMI 26.3
--- NOTE | ~2024-12-08 | XR_ITS ---
EXAMINATION: XR chest 1V portable DATE: 12/08/2024 09:12 INDICATION: Heart palpitations TECHNIQUE: frontal view of the chest was obtained. COMPARISON: Chest radiograph dated 06/12/23 FINDINGS: The lungs remain clear with no focal airspace opacities, pulmonary edema, pleural effusion or pneumot horax. The cardiomediastinal silhouette is normal. Visualized bones and soft tissues are unremarkable . IMPRESSION: 1. No acute cardiopulmonary disease. Reviewed, dictated and finalized at location A.
--- NOTE | 2024-12-08 08:23 | ECG_ITS ---
Test Date: 2024-12-08 08:27:57 Measurements Intervals [place] Rate: 92 P: 73 NM: 151 QRS: 3 QRSD: 79 T: 40 QT: 350 QTc: 434 Interpretive Statements SINUS RHYTHM VOLTAGE CRITERIA FOR LVH CANNOT R/O SEPTAL INFARCT, AGE INDETERMINATE BORDERLINE ST ABNORMALITY- ANTEROLATERAL LEADS ABNORMAL ECG No previous ECG available for comparison Electronically Signed On 12-08-2024 16:17:04 CDT by Maximilian Swartz D.O.
--- NOTE | 2024-12-08 08:37 | ECG_ITS ---
Test Date: 2024-12-08 08:40:06 Measurements Intervals [place] Rate: 93 P: 74 MT: 156 QRS: 2 QRSD: 81 T: 27 QT: 356 QTc: 443 Interpretive Statements SINUS RHYTHM VOLTAGE CRITERIA FOR LVH CANNOT R/O SEPTAL INFARCT, AGE INDETERMINATE BASELINE ARTIFACT- I, II, AVR, AVL, AVF ABNORMAL ECG Compared to ECG 12/08/2024 08:27:57 No significant changes Electronically Signed On 12-08-2024 16:17:32 CDT by Maximilian Swartz D.O.
--- NOTE | 2024-12-08 08:42 | PC.NURSE ---
This RN at bedside with pt who states I'm not feeling well. My heart feels funny. Pt cardiac rn showing HR of 166, RN called EDP into pt room, EKG reperformed and pt went back to sinus rhythm at that time.
[2024-12-08 08:46] LABS: Hematocrit 44.1 % (37.0-47.0); Hemoglobin 14.6 g/dL (12.0-15.0); Immature Granulocyte Percent A 0.6 % (0-0.5); Lymphocytes Absolute Auto 0.99 K/mm3 (0.9-3.2); Mean Corpuscular HGB Conc 33.1 g/dl (32-36); Mean Corpuscular Hemoglobin 29.3 pg (26-34); Mean Corpuscular Volume 88.4 fl (80-100); Nucleated Red Blood Cells Absolute Auto 0.000 K/mm3 (0.0-0.012); Nucleated Red Blood Cells Perc 0.0 % (0.0-0.2); Platelet Count Result 176 k/mm3 (150-375); Red Blood Count 4.99 M/mm3 (4.2-5.4); White Blood Count 7.0 K/mm3 (4.5-10.0)
--- NOTE | 2024-12-08 08:53 | ED.GENADULT ---
HPI - General Adult General Chief complaint: Arrhythmia/Palpitations Stated complaint: rapid, HR, n/v, hernia Time Seen by Provider: 12/08/24 08:28 History of Present Illness HPI narrative: 73-year-old female present to the emergency department for evaluation for rapid heart rate. Patient states she has had intermittent rapid heart rates 12/05. Patient states it happened the son she is lightheaded sick to her stomach. Patient denies any current chest pain. Patient has no significant cardiac history. Related Data Home Medications ?Medication ?Instructions ?Recorded ?Confirmed ?Last Taken ?Type atorvastatin 10 mg tablet 10 mg PO QAM 04/10/22 12/08/24 12/08/24 07:00 History 10 mg losartan 100 mg tablet 100 mg PO QAM 04/10/22 12/08/24 12/08/24 07:00 History 100 mg cholecalciferol (vitamin D3) 125 125 mcg PO BID 04/11/22 12/08/24 12/08/24 07:00 History mcg (5,000 unit) capsule 125 mcg (Dialyvite Vitamin D) vit C 250 mg-vit E 90 mg-zinc 40 1 tablet PO BID 04/11/22 12/08/24 12/08/24 07:00 History mg-copper 1 [id number] 1 tablet capsule (PreserVision AREDS-2) Allergies Allergy/AdvReac Type Severity Reaction Status Date / Time adhesive Allergy Unknown RASH Verified 12/08/24 08:31 doxycycline Allergy Unknown Cramping Verified 12/08/24 08:31 of the Muscles Review of Systems Review of Systems: All systems reviewed & are unremarkable except as noted in HPI and below PMFSH Past Medical History Medical History Hypertension Hyperlipidemia Hiatal hernia Recurrent Surgical History Surgical History Small bowel obstruction due to adhesions Adhesiolysis on 04/13/22 Paraesophageal hiatal hernia Repair laparoscopically 14 or 15 years ago at outside hospital Colovesical fistula Sigmoidectomy and bladder closure performed in [place] February 2021 Family History Family History Mother Family history of chronic obstructive pulmonary disease Family history of malignant neoplasm of urinary bladder Patient's mother is AAA (abdominal aortic aneurysm) Father , AAA Malignant neoplasm of prostate Sibling Heart disease Social History Social History Smoking status: Never smoker Second hand tobacco smoke exposure: Yes Alcohol intake: never Substance use: never Substance use type: does not use Do You Feel Safe in your Home?: Yes Lack of Transportation: No Lack of Food: Never True Current Housing: I Have Housing Concerned About Future Housing: No Difficulty Paying Gas/Electric Bills: No Difficulty Paying for Meds: No Currently Unemployed: No Education: Decline to Answer Difficulty w/ Childcare or Family Care: No Living arrangements: with family 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 HEAD: normocephalic, atraumatic. EYES: PERRLA/EOMI, conjunctivae clear. NOSE: Normal no drainage EARS:TMS clear with good light reflex. THROAT: Pharynx clear, no exudate. NECK: Supple. No adenopathy, no masses. RESPIRATORY: Airway patent, respirations nonlabored. Clear to auscultation bilaterally, no rales, rhonchi, wheezing. CARDIOVASCULAR: Regular rate and rhythm without murmurs rubs or gallops. ABDOMINAL: Soft, nontender, nondistended, normal bowel sounds MUSCULOSKELETAL: Moves all extremities. Strength/ROM intact, No edema, No calf tenderness. NEURO: Alert. Cranial nerves II through XII intact. Good gait. Good coordination SKIN: Warm, dry. Normal Color Course Vital Signs Vital signs: Vital Signs Temperature 98.2 F 12/08/24 08:25 Pulse Rate 97 12/08/24 08:25 Respiratory Rate 14 12/08/24 08:25 Blood Pressure 184/74 H 12/08/24 08:25 Pulse Oximetry 99 12/08/24 08:25 Oxygen Delivery Room Air 12/08/24 08:25 Temperature 98.5 F 12/08/24 16:00 Pulse Rate 70 12/08/24 16:00 Respiratory Rate 20 12/08/24 16:00 Blood Pressure 180/88 H 12/08/24 17:23 Pulse Oximetry 99 08/03/25 16:00 Oxygen Delivery Room Air 12/08/24 16:00 Medical Decision Making MDM Narrative Medical decision making narrative: 73-year-old female with no prior history of coronary disease. Patient does follow-up with Dr. Blas. Patient states she has had intermittent heart palpitations since 12/05. Patient had 2 episodes AFib with RVR in the emergency department patient was symptomatic with this heart rate. Patient is currently afebrile with no leukocytosis hemoglobin of 14.6. Patient's INR is 1.0. Patient has no acute abnormalities on her CMP clinic and normal Mag. Patient did have a heart rate that went up to 200 then slowed down to approximately 150 and was clearly AFib with RVR. Patient was treated with a dose of 5 mg IV Lopressor and came back down to a normal sinus rhythm of 70. When patient's heart rate improved she did feel the symptoms resolved. Case was discussed with Cardiology and since the patient was symptomatic they were comfortable with keeping the patient in patient for further evaluation. Patient will be started on 50 mg of extended release p.o. metoprolol. This was started in the emergency department. Patient does prefer to stay. Critical Care Procedure Note Authorized and Performed by: Renard Escamilla Total critical care time: Approximately 36 minutes Due to a high probability of clinically significant, life threatening deterioration, the patient required my highest level of preparedness to intervene emergently and I personally spent this critical care time directly and personally managing the patient. This critical care time included obtaining a history; examining the patient; pulse oximetry; ordering and review of studies; arranging urgent treatment with development of a management plan; evaluation of patient's response to treatment; frequent reassessment; and, discussions with other providers. This critical care time was performed to assess and manage the high probability of imminent, life-threatening deterioration that could result in multi-organ failure. It was exclusive of separately billable procedures and treating other patients and teaching time. Please see MDM section and the rest of the note for further information on patient assessment and treatment. Differential Diagnosis Differential Diagnosis: AFib, a flutter, SVT Vital Signs Vital Signs: Vital Signs Temperature 98.2 F 12/08/24 08:25 Pulse Rate 97 12/08/24 08:25 Respiratory Rate 14 12/08/24 08:25 Blood Pressure 184/74 H 12/08/24 08:25 Pulse Oximetry 99 12/08/24 08:25 Oxygen Delivery Room Air 12/08/24 08:25 Temperature 98.5 F 12/08/24 16:00 Pulse Rate 70 12/08/24 16:00 Respiratory Rate 20 12/08/24 16:00 Blood Pressure 180/88 H 12/08/24 17:23 Pulse Oximetry 99 12/08/24 16:00 Oxygen Delivery Room Air 12/08/24 16:00 Lab Data Lab results reviewed: Yes I reviewed the patient's lab results. 12/08/24 08:38 12/08/24 08:38 Labs: Lab Results 12/08/24 12/08/24 Range/Units 08:38 09:03 WBC 7.0 (4.5-10.0) K/mm3 RBC 4.99 (4.2-5.4) M/mm3 Hgb 14.6 (12.0-15.0) g/dL Hct 44.1 (37.0-47.0) % MCV 88.4 (80-100) fl MCH 29.3 (26-34) pg MCHC 33.1 (32-36) g/dl RDW 13.2 (11.5-14.5) % Plt Count 176 (150-375) k/mm3 MPV 10.0 (7.4-10.4) fl Immature Gran % (Auto) 0.6 H (0-0.5) % Neut % (Auto) 78.6 H (45.5-73.1) % Lymph % (Auto) 14.2 L (18.3-44.2) % [place] % (Auto) 5.3 (2.6-8.5) % Eos % (Auto) 0.9 (0-4.4) % Baso % (Auto) 0.4 (0.2-1.2) % Lymph # (Auto) 0.99 (0.9-3.2) K/mm3 [place] # (Auto) 0.4 (0.1-0.6) K/mm3 Eos # (Auto) 0.1 (0-0.3) K/mm3 Baso # (Auto) 0.0 (0.0-0.1) K/mm3 Abs Immat Gran (auto) 0.04 H (0.00-0.031) K/mm3 Absolute Neuts (auto) 5.5 (1.3-6.7) K/mm3 Absolute Nucleated RBC 0.000 (0.0-0.012) K/mm3 Nucleated RBC % 0.0 (0.0-0.2) % PT 13.2 (11.1-14.7) Seconds INR 1.0 APTT 28.4 (22.3-36.8) Seconds Sodium 135 L (137-145) mmol/L Potassium 3.8 (3.4-5.0) mmol/L Chloride 105 (98-107) mmol/L Carbon Dioxide 23 (22-30) mmol/L Anion Gap 7 (4-12) mmol/L BUN 15 D (7-17) mg/dL Creatinine 0.74 (0.7-1.0) mg/dL Estim Creat Clear Calc Not Reportable Estimated GFR > 60 (59 - ) Glucose 103 (65-110) mg/dL Calcium 9.3 (8.4-10.2) mg/dL Magnesium 2.0 (1.6-2.3) mg/dL Total Bilirubin 1.4 H (0.2-1.3) mg/dL AST 32 (14-36) U/L ALT 19 (6-35) U/L Alkaline Phosphatase 83 (38-126) U/L Troponin I < 0.012 (0.000-0.034) ng/mL Total Protein 7.0 (6.3-8.2) g/dL Albumin 4.2 (3.5-5.1) g/dL TSH (Reflex) 2.970 (0.465-4.68) uIU/mL Urine Color Yellow (Yellow) Urine Appearance Clear (Clear) Urine pH 7.0 (5.0-9.0) Ur Specific [place] 1.011 (1.001-1.035) Urine Protein Negative (Negative) mg/dL Urine Glucose (UA) Negative (Negative) mg/dL Urine Ketones 1+ H (Negative) mg/dL Ur Blood (Man) Negative (Negative) Urine Nitrate Negative (Negative) Urine Bilirubin Negative (Negative) Urine Urobilinogen 0.2 (<2.0) mg/dL Leukocyte Esterase Rfl Trace H (Negative) BRIANA/UL Urine RBC 0-2 (0-2) /hpf Urine WBC 0-5 (0-3) /hpf Ur Squamous Epith Cells None seen (Few) /hpf Urine Bacteria None seen /hpf Urine Casts 0-2 Imaging Data Radiologist's impression: Impressions Chest X-Ray 12/08/24 09:19 IMPRESSION: 1. No acute cardiopulmonary disease. Critical Care Time Critical Care Time Critical Care Time: Yes Total Critical Care Time: 36 Discharge Plan Discharge Clinical Impression: AF (paroxysmal atrial fibrillation) Patient Disposition: Still a Patient Condition: Serious
[2024-12-08 09:01] LABS: Alanine Aminotransferase 19 U/L (6-35); Albumin Level 4.2 g/dL (3.5-5.1); Alkaline Phosphatase 83 U/L (38-126); Anion Gap 7 mmol/L (4-12); Aspartate Amino Transferase 32 U/L (14-36); Bilirubin,Total 1.4 mg/dL (0.2-1.3); Blood Urea Nitrogen 15 mg/dL (7-17); Calcium 9.3 mg/dL (8.4-10.2); Carbon Dioxide 23 mmol/L (22-30); Chloride 105 mmol/L (98-107); Estimated Glomerular Filt Rate > 60; Glucose 103 mg/dL (65-110); Magnesium 2.0 mg/dL (1.6-2.3); Potassium 3.8 mmol/L (3.4-5.0); Sodium 135 mmol/L (137-145); Total Protein 7.0 g/dL (6.3-8.2)
[2024-12-08 09:02] LABS: INR 1.0; Partial Thromboplastin Time 28.4 Seconds (22.3-36.8); Prothrombin Time 13.2 Seconds (11.1-14.7)
--- NOTE | 2024-12-08 09:08 | ECG_ITS ---
Test Date: 2024-12-08 09:08:57 Measurements Intervals [place] Rate: 159 P: 0 LA: 0 QRS: 1 QRSD: 81 T: 66 QT: 268 QTc: 437 Interpretive Statements ATRIAL FIBRILLATION WITH RAPID VENTRICULAR RESPONSE VOLTAGE CRITERIA FOR LVH MINIMAL Q WAVES- HIGH LATERAL LEADS CANNOT R/O SEPTAL INFARCT, AGE INDETERMINATE BORDERLINE ST-T WAVE ABNORMALITY- ANTEROLATERAL LEADS ABNORMAL ECG Compared to ECG 12/08/2024 08:40:06 Sinus rhythm no longer present Electronically Signed On 12-08-2024 16:18:28 CDT by Maximilian Swartz D.O.
--- NOTE | 2024-12-08 09:08 | PC.NURSE ---
Pt monitor showing heart rate 200-212 EDP and RN at bedside. EKG performed showing pt to be in Afib RVR, EDP gave vorb for 5mg metoprolol to be given IVP.
[2024-12-08] MEDS: METOPROLOL TARTRATE INJ 5 MG/5 ML VIAL IV PUSH (09:09)
[2024-12-08 09:22] LABS: Add Urine Microscopic? YES; Appearance Urine Clear (Clear); Glucose Urine UA Negative (Negative); Leukocyte Esterase Ur Trace LEU/UL (Negative); Nitrate Urine Negative (Negative); Non Pathogenic Casts 0-2; Specific Grav Ur 1.011 (1.001-1.035)
[2024-12-08] MEDS: LACTATED RINGERS 1,000 ML 500 ML IV CONT (09:31)
[2024-12-08 09:33] LABS: Thyroid Stimulating Hormone Reflex 2.970 uIU/mL (0.465-4.68)
[2024-12-08 10:09] LABS: Troponin I < 0.012 ng/mL (0.000-0.034)
[2024-12-08] MEDS: METOPROLOL SUCCINATE EXT REL 50 MG TABCR PO (10:35)
[2024-12-08] MEDS: ENOXAPARIN 80 MG/0.8 ML SYRINGE 70 MG SUB-Q (12:12)
--- NOTE | 2024-12-08 16:00 | ADMGEN ---
This patient, Annette Mckeon, was admitted to [facility] @ 1600. Patient/family oriented to hospital policies and general routines including ID bracelet, bed and alarms, visiting hours, pain management, procedures, bathroom and other care routines, personal items, smoking policy, room service/diet, and visiting hours. Information on how to activate the Rapid Response Team has been discussed. Patient/Family are encouraged to report perceived risks to care and to ask questions if they do not understand what they are told or what they should do.
--- NOTE | 2024-12-08 17:14 | P.HP_ITS ---
H&P: HPI History of Present Illness Date/Time: 12/08/24 17:14 Chief Complaint: Fast heart rate Narrative: This is a 73-year-old female with history of hypertension, hyperlipidemia, hiatal hernia status post repair, history of GERD no longer on PPI, basal cell carcinoma, presenting to [facility] ER on 12/08/2024 complaint of burning chest pain and rapid heart rate. Reports this started a few days prior intermittently Kimberlyn came back on the day of admission associated with dizziness in making her sick to her stomach. She was admitted to [facility] in June 2023 with dizziness. No clear etiology was discovered. She was discharged with a heart monitor and followed up with fire inspector Dr. Blas and was told there were a few ?blips but was told that was not concerning. ER evaluation revealed irregular heart rate up to 150. Lopressor 5 mg IV x1 which brought her heart rate down into the 70s. Subsequently, she did convert to normal sinus rhythm. Was then given metoprolol succinate 50 mg x1. Cardiology consulted from the ER. EKG demonstrating a fib w/ RVR, troponin within normal limits, was given Lovenox 70 mg subQ x1. Her symptoms completely resolved thereafter. TSH 2.970. Urinalysis with trace leukocyte esterase otherwise unremarkable. Chest x-ray without any acute findings. Review of Systems Review of Systems: All systems reviewed & are unremarkable except as noted in HPI and below (HPI) [facility] Past Medical History Medical History Hypertension Hyperlipidemia Hiatal hernia Recurrent Surgical History Surgical History Small bowel obstruction due to adhesions Adhesiolysis on 04/13/22 Paraesophageal hiatal hernia Repair laparoscopically 14 or 15 years ago at outside hospital Colovesical fistula Sigmoidectomy and bladder closure performed in [place] February 2021 Family History Family History Mother Family history of chronic obstructive pulmonary disease Family history of malignant neoplasm of urinary bladder Patient's mother is AAA (abdominal aortic aneurysm) Father , AAA Malignant neoplasm of prostate Sibling Heart disease Social History Social History Smoking status: Never smoker Second hand tobacco smoke exposure: Yes Alcohol intake: never Substance use: never Substance use type: does not use Do You Feel Safe in your Home?: Yes Lack of Transportation: No Lack of Food: Never True Current Housing: I Have Housing Concerned About Future Housing: No Difficulty Paying Gas/Electric Bills: No Difficulty Paying for Meds: No Currently Unemployed: No Education: Decline to Answer Difficulty w/ Childcare or Family Care: No Living arrangements: with family 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 Gender identity (if verbalized by the patient): Female Spiritual care concerns: No Meds Home Medications and Allergies Home Medications ?Medication ?Instructions ?Recorded ?Confirmed ?Type atorvastatin 10 mg tablet 10 mg PO QAM 04/10/22 12/04/23 History losartan 100 mg tablet 100 mg PO QAM 04/10/22 12/04/23 History cholecalciferol (vitamin D3) 125 125 mcg PO BID 04/11/22 12/04/23 History mcg (5,000 unit) capsule (Dialyvite Vitamin D) vit C 250 mg-vit E 90 mg-zinc 40 1 tablet PO BID 04/11/22 12/04/23 History mg-copper 1 [id number]-alfhpy-xkhnaq capsule (PreserVision AREDS-2) Allergies Allergy/AdvReac Type Severity Reaction Status Date / Time adhesive Allergy Unknown RASH Verified 12/08/24 08:31 doxycycline Allergy Unknown Cramping Verified 12/08/24 08:31 of the Muscles Vital Signs Vital Signs - 24 hr 12/08/24 08:25 12/08/24 08:26 12/08/24 09:09 Temperature 98.2 F Pulse Rate 97 101 H 153 H Respiratory Rate 14 21 H Blood Pressure 184/74 H 184/74 H Pulse Oximetry 99 100 Oxygen Delivery Room Air 12/08/24 09:15 12/08/24 09:31 12/08/24 10:35 Temperature Pulse Rate 75 74 72 Respiratory Rate 19 13 Blood Pressure 183/74 H 183/74 H Pulse Oximetry 100 100 Oxygen Delivery 12/08/24 10:37 12/08/24 11:01 12/08/24 12:01 Temperature Pulse Rate 78 71 64 Respiratory Rate 17 11 L 15 Blood Pressure 175/63 H 177/72 H 167/57 H Pulse Oximetry 100 100 99 Oxygen Delivery 12/08/24 12:12 12/08/24 12:31 12/08/24 15:22 Temperature Pulse Rate 67 68 70 Respiratory Rate 18 16 16 Blood Pressure 167/57 H 174/72 H 168/64 H Pulse Oximetry 100 100 98 Oxygen Delivery 12/08/24 15:50 12/08/24 16:00 12/08/24 16:00 Temperature 98.5 F 98.5 F Pulse Rate 72 70 Respiratory Rate 12 20 Blood Pressure 171/66 H 175/67 H Pulse Oximetry 98 99 99 Oxygen Delivery Room Air 12/08/24 16:00 Temperature Pulse Rate 70 Respiratory Rate Blood Pressure Pulse Oximetry Oxygen Delivery Exam Const: General: comfortable and no acute distress Other: A&O x3 HENMT: Mouth: Yes moist mucous membranes Eyes: Pupils: Equal, round and reactive pupils present Resp: Effort & Inspection: normal respiratory effort Auscultation: clear to auscultation bilaterally Cardio: Rate: regular rate Rhythm: regular rhythm Heart sounds: no gallops, no murmurs and no rubs GI: Inspection: non-distended GI Palp: Yes Soft to palpation Neuro: Motor exam (neuro): 5/5 motor strength present throughout Extrem: General: no edema H&P: Results Labs Labs: Short CBC 12/08/24 Range/Units 08:38 WBC 7.0 (4.5-10.0) K/mm3 Hgb 14.6 (12.0-15.0) g/dL Hct 44.1 (37.0-47.0) % Plt Count 176 (150-375) k/mm3 BMP 12/08/24 08:38 Sodium 135 L Potassium 3.8 Chloride 105 Carbon Dioxide 23 BUN 15 D Creatinine 0.74 Glucose 103 Calcium 9.3 Cardiac Enzymes 12/08/24 Range/Units 08:38 Troponin I < 0.012 (0.000-0.034) ng/mL Liver Function 12/08/24 Range/Units 08:38 Total Bilirubin 1.4 H (0.2-1.3) mg/dL AST 32 (14-36) U/L ALT 19 (6-35) U/L Alkaline Phosphatase 83 (38-126) U/L Albumin 4.2 (3.5-5.1) g/dL Urine 12/08/24 Range/Units 09:03 Urine Color Yellow (Yellow) Urine Appearance Clear (Clear) Urine pH 7.0 (5.0-9.0) Ur Specific [place] 1.011 (1.001-1.035) Urine Protein Negative (Negative) mg/dL Urine Glucose (UA) Negative (Negative) mg/dL Assessment and Plan Assessment and plan (1) AF (paroxysmal atrial fibrillation): Code(s): I48.0 - Paroxysmal atrial fibrillation Status: Acute (2) Hypertension: Code(s): I10 - Essential (primary) hypertension Status: Chronic Plan This is a 73-year-old female with history of hypertension, hyperlipidemia, hiatal hernia status post repair, history of GERD no longer on PPI, basal cell carcinoma, presenting to [facility] ER on 12/08/2024 complaint of burning chest pain and rapid heart rate. Reports this started a few days prior intermittently Kimberlyn came back on the day of admission associated with dizziness in making her sick to her stomach. She was admitted to [facility] in June 2023 with dizziness. No clear etiology was discovered. She was discharged with a heart monitor and followed up with fire inspector Dr. Blas and was told there were a few ?blips but was told that was not concerning. ER evaluation revealed irregular heart rate up to 150. Lopressor 5 mg IV x1 which brought her heart rate down into the 70s. Subsequently, she did convert to normal sinus rhythm. Was then given metoprolol succinate 50 mg x1. Cardiology consulted from the ER. EKG demonstrating a fib w/ RVR, troponin within normal limits, was given Lovenox 70 mg subQ x1. Her symptoms completely resolved thereafter. TSH 2.970. Urinalysis with trace leukocyte esterase otherwise unremarkable. Chest x-ray without any acute findings. ----- At this time she remains in normal sinus rhythm. Continue telemetry. Chads Vasc 2 score is 3. Discussed the risks versus benefits of anticoagulants, start Eliquis. Continue metoprolol succinate 50 mg p.o. q.a.m.. Blood pressure is uncontrolled, administer hydralazine 10 mg p.o. x1. She is unsure if she took a losartan this morning or not. Will restart in the morning. Pending TTE, and Cardiology consultation. Patient wishes to be full code. Continue Eliquis. Heart healthy diet. Saline lock IV. 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 Hospitalist MIPS Advance Care Plan I have confirmed that the patient's Advanced Care Plan is present, code status is documented, or surrogate decision maker is listed in patient medical record.: Yes Medication Reconciliation I have utilized all available resources to obtain, update and review the patients current medications (includes all prescriptions, OTC, herbals, cannabis, and nutritional supplements).: Yes
[2024-12-08] MEDS: ACETAMINOPHEN 325 MG TABLET 650 MG PO (18:44)
[2024-12-08] MEDS: APIXABAN 5 MG TABLET PO (21:28)
[2024-12-09] VITALS (17 sets, daily range): BP systolic 111–149; BP diastolic 41–82; PULSE 56–105; RESP 16–20; TEMP 36.6–36.9; O2SAT 98–100
--- NOTE | 2024-12-09 | ECHO_ITS ---
Patient Info Name: Annette Mckeon Age: 73 years : 1950 Gender: Female Ht: 63 in Wt: 150 lbs BSA: 1.76 m2 HR: 70 bpm BP: 111 / 67 mmHg Technical Quality: Good Exam Date: 12/09/2024 1:14 PM Patient Status: I Admit Date: 12/08/2024 Exam Type: CA echo doppler color flow Complete two-dimensional, color flow and Doppler transthoracic echocardiogram is performed. Staff Referring Physician: Renard Escamilla Headrig Sawyer: Torri Hudson Attending Provider: Mago Veras Summary 1. Complete two-dimensional, color flow and Doppler transthoracic echocardiogram is performed. 2. Left ventricular systolic function is normal, estimated at 65-70. 3. The left ventricular diastolic function is abnormal. 4. Left atrial chamber dimension is moderately enlarged. 5. There is mild mitral valve regurgitation. 6. There is mild tricuspid valve regurgitation. 7. No pulmonary hypertension, estimated pulmonary arterial systolic pressure is 23 mmHg. Left Ventricle Left ventricular chamber dimension is normal. Left ventricular systolic function is normal, estimated at 65-70. There is no increased left ventricular wall thickness. Left ventricular septal wall motion is normal. The left ventricular diastolic function is abnormal. Right Ventricle Right ventricular chamber dimension is normal. Right ventricular systolic function is normal. Left Atria Left atrial chamber dimension is moderately enlarged. Right Atria Right atrial chamber dimension is normal. Aortic Valve The aortic valve is trileaflet. There is no aortic valve sclerosis. There is no aortic valve stenosis. There is no aortic valve regurgitation. Pulmonic Valve The pulmonic valve is normal. There is no pulmonic valve stenosis. There is no pulmonic regurgitation. Mitral Valve The mitral valve has normal leaflets. There is no mitral valve stenosis. There is mild mitral valve regurgitation. Tricuspid Valve The tricuspid valve leaflets are normal. There is no significant tricuspid valve stenosis. There is mild tricuspid valve regurgitation. No pulmonary hypertension, estimated pulmonary arterial systolic pressure is 23 mmHg. Pericardium/Pleural The pericardium appears normal. There is no pericardial effusion. Inferior Vena Cava Normal inferior vena cava with >50% collapse upon inspiration consistent with normal right atrial pressure, 5 mmHg. Aorta The aortic root size at the sinus of Valsalva is normal. The prox ascending aorta size is normal. Left Ventricular Outflow Tract Name Value Normal LVOT 2D LVOT Diameter 1.7 cm LVOT Doppler LVOT Peak Velocity 141 cm/s LVOT Peak Gradient 8 mmHg LVOT Mean Gradient 4 mmHg LVOT VTI 31 cm LVOT Stroke Volume 67 ml LVOT CO 4.6 l/min LVOT CI 2.6 l/min/m2 Pulmonic Valve Name Value Normal RVOT Doppler RVOT Peak Velocity 66 cm/s RVOT Peak Gradient 2 mmHg PV Doppler PV Peak Velocity 101 cm/s PV Peak Gradient 4 mmHg Mitral Valve Name Value Normal MV Diastolic Function MV E Peak Velocity 83 cm/s MV A Peak Velocity 56 cm/s MV E/A 1.5 MV Decel Time (PW) 248 ms MV Annular TDI MV E/e' (Septal) 10.5 MV E/e' (Lateral) 8.9 MV E/e' (Average) 9.7 Tricuspid Valve Name Value Normal TV Regurgitation Doppler TR Peak Velocity 210 cm/s TR Peak Gradient 18 mmHg Estimated PAP/RSVP RA Pressure 5 mmHg <=5 PA Systolic Pressure 23 mmHg <36 RV Systolic Pressure 23 mmHg <36 Aortic Valve Name Value Normal AV Doppler AV Peak Velocity 165 cm/s AV Peak Gradient 11 mmHg AV Area (Cont Eq Faisal) 1.8 cm2 AV DI (Faisal) 0.85 AV Regurgitation 2D LVOT Area 2.2 cm2 Ventricles Name Value Normal LV Dimensions 2D/MM IVS Diastolic Thickness (2D) 0.8 cm 0.6-1.0 LVID Diastole (2D) 3.6 cm 3.8-5.2 LVIW Diastolic Thickness (2D) 1.1 cm 0.6-0.9 LVID Systole (2D) 2.2 cm 2.2-3.5 LVOT Diameter 1.7 cm LV Mass (2D Cubed) 102.43 g 67.00-162.00 LV Mass Index (2D Cubed) 58 g/m2 43-95 Relative Wall Thickness (2D) 0.62 <=0.42 LV Fractional Shortening/Ejection Fraction 2D/MM LV Fractional Shortening (2D) 37 % 27-45 LV EF (2D Teichholz) 68 % LV Diastolic Volume (4C MOD) 70 ml LV EF (4C MOD) 70 % LV Diastolic Volume (2C MOD) 86 ml LV EF (2C MOD) 57 % LV Diastolic Volume (BP MOD) 82 ml 46-106 LV Diastolic Volume Index (BP MOD) 47 ml/m2 29-61 LV Systolic Volume (BP MOD) 30 ml 14-42 LV Systolic Volume Index (BP MOD) 17 ml/m2 8-24 LV EF (BP MOD) 64 % 54-74 LV Diastolic Length (4C) 7.1 cm LV Systolic Length (4C) 5.4 cm LV Stroke Volume (4C MOD) 49 ml Atria Name Value Normal LA Dimensions LA Volume (4C A-L) 53 ml LA Volume (BP A-L) 56 ml RA Dimensions RA Systolic Major [place] Length (4C) 4.8 cm 2.2-2.8 RA Area (4C) 12.8 cm2 <=18.0 Report Signatures
[2024-12-09 04:37] LABS: Hematocrit 42.4 % (37.0-47.0); Hemoglobin 13.7 g/dL (12.0-15.0); Mean Corpuscular HGB Conc 32.3 g/dl (32-36); Mean Corpuscular Hemoglobin 29.2 pg (26-34); Mean Corpuscular Volume 90.4 fl (80-100); Platelet Count Result 184 k/mm3 (150-375); Red Blood Count 4.69 M/mm3 (4.2-5.4); White Blood Count 6.4 K/mm3 (4.5-10.0)
[2024-12-09 05:09] LABS: Anion Gap 5 mmol/L (4-12); Blood Urea Nitrogen 17 mg/dL (7-17); Calcium 8.9 mg/dL (8.4-10.2); Carbon Dioxide 26 mmol/L (22-30); Chloride 104 mmol/L (98-107); Estimated CRCL calculation 46 ml/min; Estimated Glomerular Filt Rate > 60; Glucose 94 mg/dL (65-110); Magnesium 2.1 mg/dL (1.6-2.3); Potassium 3.8 mmol/L (3.4-5.0); Sodium 135 mmol/L (137-145)
[2024-12-09] MEDS: APIXABAN 5 MG TABLET PO ×2 (08:35→18:28)
[2024-12-09] MEDS: METOPROLOL SUCCINATE EXT REL 50 MG TABCR PO (08:35)
--- NOTE | 2024-12-09 09:05 | PM.CNCAR ---
Assessment and Plan Assessment and plan (1) AF (paroxysmal atrial fibrillation): Code(s): I48.0 - Paroxysmal atrial fibrillation Status: Acute Assessment and Plan: This is a new diagnosis. She spontaneously converted to sinus rhythm and remains in sinus rhythm now. Continue metoprolol succinate 50 mg daily She has a CHADS2 Vasc score of 3 (age, gender, hypertension) is. Anticoagulation is indicated. Will start Eliquis 5 mg p.o. b.i.d. Check echocardiogram TSH normal If echocardiogram unremarkable, patient can be discharged with outpatient follow-up in our office. (2) Hypertension: Code(s): I10 - Essential (primary) hypertension Status: Chronic Assessment and Plan: At goal. History of Present Illness History of Present Illness Consult date/time: 12/09/24 09:05 Requesting physician: Mago Veras MD Consult reason: atrial fibrillation Reason For Visit: paroxysmal atrial fibrillation Narrative: Annette Mckeon is a 73 year old female with hypertension, hyperlipidemia, GERD who presents to the hospital with palpitations. She had a transient episode of palpitations at the end of last week and again yesterday. She had some chest discomfort associated with the palpitations which she initially attributed to her hiatal hernia. However, the discomfort did not subside therefore she decided to come to the hospital for evaluation. She was found to be in atrial fibrillation with rapid ventricular response. She was given IV metoprolol and spontaneously converted to sinus rhythm. She has remained in sinus rhythm since that time. At the time of my evaluation, she does not have any complaints. Review of Systems Review of Systems: All systems reviewed & are unremarkable except as noted in HPI and below [facility] Past Medical History Medical History Hypertension Hyperlipidemia Hiatal hernia Recurrent Surgical History Surgical History Small bowel obstruction due to adhesions Adhesiolysis on 04/13/22 Paraesophageal hiatal hernia Repair laparoscopically 14 or 15 years ago at outside hospital Colovesical fistula Sigmoidectomy and bladder closure performed in [place] February 2021 Family History Family History Mother Family history of chronic obstructive pulmonary disease Family history of malignant neoplasm of urinary bladder Patient's mother is AAA (abdominal aortic aneurysm) Father , AAA Malignant neoplasm of prostate Sibling Heart disease Social History Social History Smoking status: Never smoker Second hand tobacco smoke exposure: Yes Alcohol intake: never Substance use: never Substance use type: does not use Do You Feel Safe in your Home?: Yes Lack of Transportation: No Lack of Food: Never True Current Housing: I Have Housing Concerned About Future Housing: No Difficulty Paying Gas/Electric Bills: No Difficulty Paying for Meds: No Currently Unemployed: No Education: Decline to Answer Difficulty w/ Childcare or Family Care: No Living arrangements: with family 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 Gender identity (if verbalized by the patient): Female Spiritual care concerns: No Meds Home Medications and Allergies Home Medications ?Medication ?Instructions ?Recorded ?Confirmed ?Type atorvastatin 10 mg tablet 10 mg PO QAM 04/10/22 12/08/24 History losartan 100 mg tablet 100 mg PO QAM 04/10/22 12/08/24 History cholecalciferol (vitamin D3) 125 125 mcg PO BID 04/11/22 12/08/24 History mcg (5,000 unit) capsule (Dialyvite Vitamin D) vit C 250 mg-vit E 90 mg-zinc 40 1 tablet PO BID 04/11/22 12/08/24 History mg-copper 1 [id number] capsule (PreserVision AREDS-2) Allergies Allergy/AdvReac Type Severity Reaction Status Date / Time adhesive Allergy Unknown RASH Verified 12/08/24 21:26 doxycycline Allergy Unknown Cramping Verified 12/08/24 21:26 of the Muscles Vital Signs Vital Signs - 24 hr 12/08/24 09:09 12/08/24 09:15 12/08/24 09:31 Temperature Pulse Rate 153 H 75 74 Respiratory Rate 19 13 Blood Pressure 183/74 H 183/74 H Pulse Oximetry 100 100 Oxygen Delivery 12/08/24 10:35 12/08/24 10:37 12/08/24 11:01 Temperature Pulse Rate 72 78 71 Respiratory Rate 17 11 L Blood Pressure 175/63 H 177/72 H Pulse Oximetry 100 100 Oxygen Delivery 12/08/24 12:01 12/08/24 12:12 12/08/24 12:31 Temperature Pulse Rate 64 67 68 Respiratory Rate 15 18 16 Blood Pressure 167/57 H 167/57 H 174/72 H Pulse Oximetry 99 100 100 Oxygen Delivery 12/08/24 15:22 12/08/24 15:50 12/08/24 16:00 Temperature 36.9 C 36.9 C Pulse Rate 70 72 70 Respiratory Rate 16 12 20 Blood Pressure 168/64 H 171/66 H 175/67 H Pulse Oximetry 98 98 99 Oxygen Delivery 12/08/24 16:00 12/08/24 16:00 12/08/24 17:23 Temperature Pulse Rate 70 Respiratory Rate Blood Pressure 180/88 H Pulse Oximetry 99 Oxygen Delivery Room Air 12/08/24 18:00 12/08/24 20:00 12/08/24 20:53 Temperature 36.7 C Pulse Rate 66 69 64 Respiratory Rate Blood Pressure 125/45 L Pulse Oximetry 96 Oxygen Delivery 12/08/24 21:05 12/08/24 22:00 12/09/24 00:00 Temperature Pulse Rate 64 56 L 56 L Respiratory Rate 20 Blood Pressure Pulse Oximetry 96 Oxygen Delivery Room Air 12/09/24 00:00 12/09/24 00:14 12/09/24 02:00 Temperature 36.9 C Pulse Rate 60 60 58 L Respiratory Rate 18 18 Blood Pressure 129/82 Pulse Oximetry 98 98 Oxygen Delivery Room Air 12/09/24 04:00 12/09/24 04:40 12/09/24 05:50 Temperature 36.6 C Pulse Rate 57 L 63 63 Respiratory Rate 18 18 Blood Pressure 149/60 H Pulse Oximetry 98 98 Oxygen Delivery Room Air 12/09/24 06:00 12/09/24 08:08 12/09/24 08:35 Temperature 36.9 C Pulse Rate 71 72 66 Respiratory Rate 18 Blood Pressure 135/41 L Pulse Oximetry 98 Oxygen Delivery Exam Const: General: comfortable, no acute distress, alert and awake Orientation/consciousness: patient oriented x3 HENMT: Head: normal to inspection Eyes: General: appearance normal, both eyes and all related structures Pupils: Equal, round and reactive pupils present Neck: Neck: normal visual inspection, supple and no JVD Carotids: normal carotid upstroke Resp: Effort & Inspection: normal respiratory effort Auscultation: clear to auscultation bilaterally Cardio: Rate: regular rate Rhythm: regular rhythm Heart sounds: S1 normal heart sound present, S2 normal heart sound present and no murmurs GI: Auscultation: normal bowel sounds Skin: General skin exam: normal color Neuro: General: patient oriented x3 Cranial nerves: Yes Equal, round and reactive pupils present Extrem: General: normal to inspection Psych: Appearance: grossly normal Mental Status: mental status grossly normal Results Labs and Meds 12/09/24 04:25 12/09/24 04:25 Lab results: Cardiac Enzymes 12/08/24 Range/Units 08:38 Troponin I < 0.012 (0.000-0.034) ng/mL CBC 12/09/24 Range/Units 04:25 WBC 6.4 (4.5-10.0) K/mm3 RBC 4.69 (4.2-5.4) M/mm3 Hgb 13.7 (12.0-15.0) g/dL Hct 42.4 (37.0-47.0) % Plt Count 184 (150-375) k/mm3 Comprehensive Metabolic Panel 12/09/24 Range/Units 04:25 Sodium 135 L (137-145) mmol/L Potassium 3.8 (3.4-5.0) mmol/L Chloride 104 (98-107) mmol/L Carbon Dioxide 26 (22-30) mmol/L BUN 17 (7-17) mg/dL Creatinine 0.79 (0.7-1.0) mg/dL Glucose 94 (65-110) mg/dL Calcium 8.9 (8.4-10.2) mg/dL Intake and Output 12/08/24 12/09/24 12/09/24 23:59 07:59 15:59 Intake Total 125 Output Total 340 Balance -215 Intake: Oral 125 Output: Urine 340 Patient Weight 12/09/24 23:59 Weight 68.4 kg
--- NOTE | 2024-12-09 18:08 | P.DS_ITS ---
DS: Admitting Diagnosis Discharge Date 12/09/2024 Admitting Diagnosis Atrial fibrillation with RVR DS: Discharge Diagnosis Discharge Diagnosis (1) AF (paroxysmal atrial fibrillation): Code(s): I48.0 - Paroxysmal atrial fibrillation Status: Acute (2) Hypertension: Code(s): I10 - Essential (primary) hypertension Status: Chronic DS: Summary Hospital Course Hospital Course: This is a 73-year-old female with history of hypertension, hyperlipidemia, hiatal hernia status post repair, history of GERD no longer on PPI, basal cell carcinoma, presenting to [facility] ER on 12/08/2024 complaint of burning chest pain and rapid heart rate. Reports this started a few days prior intermittently Kimberlyn came back on the day of admission associated with dizziness in making her sick to her stomach. She was admitted to [facility] in June 2023 with dizziness. No clear etiology was discovered. She was discharged with a heart monitor and followed up with millinery designer Dr. Blas and was told there were a few ?blips but was told that was not concerning. ER evaluation revealed irregular heart rate up to 150. Lopressor 5 mg IV x1 which brought her heart rate down into the 70s. Subsequently, she did convert to normal sinus rhythm. Was then given metoprolol succinate 50 mg x1. Cardiology consulted from the ER. EKG demonstrating a fib w/ RVR, troponin within normal limits, was given Lovenox 70 mg subQ x1. Her symptoms completely resolved thereafter. TSH 2.970. Urinalysis with trace leukocyte esterase otherwise unremarkable. Chest x-ray without any acute findings. ----- Transthoracic echocardiogram completed on 12/09/2024: Summary 1. Complete two-dimensional, color flow and Doppler transthoracic echocardiogram is performed. 2. Left ventricular systolic function is normal, estimated at 65-70. 3. The left ventricular diastolic function is abnormal. 4. Left atrial chamber dimension is moderately enlarged. 5. There is mild mitral valve regurgitation. 6. There is mild tricuspid valve regurgitation. 7. No pulmonary hypertension, estimated pulmonary arterial systolic pressure is 23 mmHg. Cardiology consultation noted. Patient will follow-up in the office within a week. She will be discharged on Eliquis 5 mg p.o. b.i.d.. She will be discharged on metoprolol 50 mg p.o. q.a.m., heart rate has remained stable. Losartan discontinued. She is discharged to home in stable condition on 12/09/2024. Time Spent with Patient Time attestation: Total time spent providing and/or coordinating discharge services: Time spent: Greater than 30 minutes Exam Const: General: comfortable HENMT: Mouth: Yes moist mucous membranes Eyes: Pupils: Equal, round and reactive pupils present Neck: Neck: supple Resp: Effort & Inspection: normal respiratory effort Cardio: Rate: regular rate Rhythm: abnormal rhythm GI: Inspection: non-distended GI Palp: Yes Soft to palpation Extrem: General: no edema DS: Data Data Completed and Pending Labs on day of discharge: Labs from last 24 hours 12/09/24 04:25 WBC 6.4 RBC 4.69 Hgb 13.7 Hct 42.4 MCV 90.4 MCH 29.2 MCHC 32.3 RDW 13.2 Plt Count 184 MPV 9.9 Sodium 135 L Potassium 3.8 Chloride 104 Carbon Dioxide 26 Anion Gap 5 BUN 17 Creatinine 0.79 Estim Creat Clear Calc 46 Estimated GFR > 60 Glucose 94 Calcium 8.9 Magnesium 2.1 Discharge Plan Discharge Attending physician on discharge: josy Consulting providers: Lauren Blas Discharging Clinician: Mago Veras Patient Disposition: Home Activity: september shower Diet: heart healthy Patient Instructions: Antibiotic Form, Metoprolol (By mouth), Apixaban (By mouth), A-fib (Atrial Fibrillation) (DC) Patient Language: Bulgarian Stand Alone Forms: General Discharge Information Follow-up/Referrals: Timothy,Bunny Pedraza MD [Primary Care Provider] - Luna Loza APN-C [Advanced Practice Nurse] - Discharge Medications: New metoprolol succinate 50 mg Tablet Extended Release 24 Hr 50 mg PO QAM Qty: 30 0RF Eliquis 5 mg Tablet 5 mg PO Q12HR Qty: 60 0RF Continued atorvastatin 10 mg tablet 10 mg PO QAM cholecalciferol (vitamin D3) [Dialyvite Vitamin D] 125 mcg (5,000 unit) Capsule 125 mcg PO BID PreserVision AREDS-2 250-90-40-1 mg Capsule 1 tablet PO BID Discontinued losartan 100 mg tablet 100 mg PO QAM Date of admission: 12/08/24 11:01 Primary Care Provider: RachelleBunny Admitting Provider: Mago Veras Attending physician on admission: Mago Veras Condition: Stable Hospitalist MIPS Heart Failure (Exclusion) Patient has history of Heart Transplant or Left Ventricular Assistive Device?: No IF YES, STOP HERE Heart Failure (Qualifier) Patient has current or prior documentation of LVEF less than or equal to 40%, or mod/servere depressed LVSF?: No IF NO, STOP HERE
== END 2024-12-09 18:35 | disposition home or self-care (01) ==
LOC: ANHED 10:23 → ANHIMU 12:15
PROVIDERS: Admitting Provider General Practice; Emergency Provider Emergency Medicine; PCP Internal Medicine; Visit Provider General Practice
DX: I48.0 Paroxysmal atrial fibrillation (principal); I08.1 Rheumatic disorders of both mitral and tricuspid valves; I10 Essential (primary) hypertension; E78.5 Hyperlipidemia, unspecified
CPT/HCPCS: 36415; 71045; 80048; 80053; 81001; 83735; 84443; 84484; 85025; 85027; 85610; 85730; 93005; 93306; 96361; 96372; 96374; 99285; A9270; G0378; J0616; J1650; J7120